=== PATIENT | female | born 1950 | race Hispanic/Latino ===

== ENCOUNTER 2018-04-29 13:09 | Emergency (ER) | payer MEDICARE ==
[~2018-04-29] VITALS: Ht 154.9 cm; Wt 74.8 kg
[2018-04-29] MEDS ORDERED: SODIUM CHLORIDE 0.9% 1000ML 1,000 ML IV STA (13:18)
[2018-04-29] MEDS ORDERED: MORPHINE SULFATE INJ 4 MG/ML INJ IV STA (13:18)
[2018-04-29] MEDS ORDERED: ONDANSETRON HCL INJ 2 MG/ML VIAL IV STA (13:18)
[2018-04-29] MEDS ORDERED: HYDROMORPHONE 1MG/1ML INJ IV STA (13:25)
[2018-04-29 13:36] LABS: BASOPHILS % 0.4 % (0.0-1.0); EOSINOPHILS % 0.2 % (0.0-6.0); HEMATOCRIT 32.4 % (34.2-44.1); HEMOGLOBIN 11.4 g/dL (12.0-16.0); LYMPHOCYTES # (AUTO) 1.4 (1.0-3.2); MEAN CORPUSCULAR HEMOGLOBIN 31.8 pg (28-32); MEAN CORPUSCULAR HGB CONC 35.2 g/dL (31-35); MEAN CORPUSCULAR VOLUME 90.3 fL (81-99); MONOCYTES # (AUTO) 0.4 (0.2-0.8); MONOCYTES % 9.3 % (4.4-11.3); NEUTROPHILS # (AUTO) 2.7 (2.1-6.9); NEUTROPHILS % 58.9 % (38.7-80.0); PLATELET COUNT 243 x10e3/uL (140-360); RED BLOOD COUNT 3.59 x10e6/uL (3.6-5.1); RED CELL DISTRIBUTION WIDTH 13.1 % (11.7-14.4)
[2018-04-29] MEDS ORDERED: HYDROMORPHONE 2MG/ML 2 MG/ML ML IV ONE ×2 (13:45→17:15)
[2018-04-29 13:55] LABS: CLARITY,URINE CLEAR (CLEAR); COLOR,URINE YELLOW (YELLOW)
[2018-04-29 13:56] LABS: KETONES,URINE NEGATIVE (NEGATIVE); LEUKOCYTE ESTERASE ,URINE NEGATIVE (NEGATIVE); NITRITE,URINE NEGATIVE (NEGATIVE); PROTEIN,URINE DIPSTICK NEGATIVE (NEGATIVE)
[2018-04-29 13:57] LABS: BILIRUBIN,URINE NEGATIVE (NEGATIVE); URINE UROBILINOGEN 0.2 mg/dL (0.2 - 1)
[2018-04-29 13:59] LABS: ALANINE AMINOTRANSFERASE 18 IU/L (0-55); ALBUMIN 4.1 g/dL (3.5-5.0); ALBUMIN/GLOBULIN RATIO 1.3 (0.8-2.0); ALKALINE PHOSPHATASE 34 IU/L (40-150); AMYLASE 59 U/L (25-125); ANION GAP 15.2 mmol/L (8-16); BLOOD UREA NITROGEN 7 mg/dL (7-26); BUN/CREATININE RATIO 10 (6-25); CALCIUM 8.7 mg/dL (8.4-10.2); CARBON DIOXIDE 19 mmol/L (22-29); CHLORIDE 99 mmol/L (98-107); CREATINE KINASE 148 IU/L (29-168); CREATININE, SERUM 0.68 mg/dL (0.57-1.11); EST GLOMERULAR FILTRATION RATE > 60 ML/MIN (60-); GLUCOSE 96 mg/dL (74-118); LIPASE 28 U/L (8-78); POTASSIUM 4.2 mmol/L (3.5-5.1); SODIUM 129 mmol/L (136-145)
[2018-04-29] MEDS ORDERED: ACETAMINOPHEN 325 MG TAB PO ONE (14:30)
--- NOTE | 2018-04-29 16:11 | Diagnostic Imaging Report ---
EXAMINATION: CT of the abdomen and pelvis with contrast. TECHNIQUE: Helical CT images of the abdomen and pelvis were performed from the lung bases to the lesser trochanters after the intravenous administration of 150 cc of Isovue 300 and the oral administration of none. Coronal and sagittal reformatted images were obtained. Dose modulation, iterative reconstruction, and/or weight based adjustment of the mA/kV was utilized to reduce the radiation dose to as low as reasonably achievable. COMPARISON: None. CLINICAL HISTORY:Abdominal pain DISCUSSION: ABDOMEN/PELVIS: LOWER THORAX:Unremarkable. HEPATOBILIARY: No focal hepatic lesions. No intra-or extrahepatic biliary ductal dilation. The gallbladder is normal. SPLEEN: No splenomegaly. PANCREAS: No focal masses or ductal dilatation. ADRENALS: No adrenal nodules. KIDNEYS/URETERS: 1 cm cyst exophytic left kidney. No obstruction. No solid masses. PELVIC ORGANS/BLADDER: The bladder is normal. PERITONEUM/RETROPERITONEUM: No free air or fluid. LYMPH NODES: No intra-abdominal, retroperitoneal, pelvic or inguinal lymphadenopathy. VESSELS: Mild vascular calcifications. GI TRACT: No distention or wall thickening. The appendix is normal. BONES AND SOFT TISSUE: Sclerosis at the right sacroiliac joint. Lower lumbar facet arthropathy. Thoracic spine skeletal hyperostosis. No soft tissue abnormalities. IMPRESSION: No acute CT finding. Signed by: Dr. Austin Finnegan M.D. on 04/29/2018 4:08 PM
[2018-04-29 18:13] VITALS: BP 115/67
[2018-04-29] MEDS ORDERED: SODIUM CHLORIDE 0.9% 50ML 50 ML ONE (19:02)
[2018-04-29] MEDS ORDERED: IOPAMIDOL 370 MG/ML 200 ML INFUS..BTL INJ ONE (19:03)
== END 2018-04-29 18:05 | disposition home or self-care (01) ==
LOC: ER 13:09
DX: R10.12 Left upper quadrant pain (principal); I10 Essential (primary) hypertension; E11.9 Type 2 diabetes mellitus without complications; M79.7 Fibromyalgia; G89.29 Other chronic pain
CPT/HCPCS: 36415; 74177; 80053; 81001; 82150; 82550; 82553; 83690; 84484; 85025; 87086; 99284; J1170; J2405; J7030; Q9967

== ENCOUNTER 2018-05-01 10:38 | Emergency (ER) | payer SELFPAY ==
[~2018-05-01] VITALS: Ht 154.9 cm; Wt 74.8 kg
--- OUTSIDE RECORDS SUMMARY | 2018-05-03 14:00 | XMS REPORT | Summary of Care ---
Author Organization Unknown Address Unknown Phone Unavailable Encounter CHULA Latif(NEO) [id number] Date(s): 11/22/14 - 11/22/14 [facility] [address] [place] [address]- Discharge Disposition: Home Physician Attending: Fabián Og MD Vital Signs Most recent to 1 oldest [Reference Range]: Height 165.1 cm (11/22/14 4:08 PM) Weight 71.364 kg (11/22/14 4:08 PM) Body Mass Index 26.18 m2 (11/22/14 4:08 PM) Problem List No data available for this section Allergies, Adverse Reactions, Alerts Substance Reaction Severity Status codeine Active ibuprofen Active NKDA Active Medications No data available for this section Results ELECTROLYTES Most recent to 1 oldest [Reference Range]: Sodium Lvl [135-145 138 mEq/L mEq/L] (11/22/14 4:10 PM) Potassium Lvl 4.7 mEq/L [3.5-5.1 mEq/L] (11/22/14 4:10 PM) Chloride Lvl [95-109 104 mEq/L mEq/L] (11/22/14 4:10 PM) CO2 [24-32 mEq/L] 29 mEq/L (11/22/14 4:10 PM) AGAP [10.0-20.0 9.7 mEq/L mEq/L] *LOW* (11/22/14 4:10 PM) CHEM PANEL Most recent to 1 oldest [Reference Range]: Creatinine Lvl 0.7 mg/dL [0.5-1.4 mg/dL] (11/22/14 4:10 PM) eGFR 91 mL/min/1.73m2 1 *NA* (11/22/14 4:10 PM) BUN [7-22 mg/dL] 13 mg/dL (11/22/14 4:10 PM) Glucose Lvl [70-99 103 mg/dL 2 mg/dL] *HI* (11/22/14 4:10 PM) Calcium Lvl 9.3 mg/dL [8.5-10.5 mg/dL] (11/22/14 4:10 PM) 1Result Comment: The eGFR is calculated using the CKD-EPI formula. In most young, healthy individuals the eGFR will be >90 mL/min/1.73m2. The eGFR declines with age. An eGFR of 60-89 may be normal in some populations, particularly the elderly, for whom the CKD-EPI formula has not been extensively validated. Use of the eGFR is not recommended in the following populations: Individuals with unstable creatinine concentrations, including patients and those with serious co-morbid conditions. Patients with extremes in muscle mass or diet. The data above are obtained from the National Kidney Disease Education Program ( NKDEP) which additionally recommends that when the eGFR is used in patients with extremes of body mass index for purposes of drug dosing, the eGFR should be mul tiplied by the estimated BMI. 2Interpretive Data: Adult reference range values reflect the clinical guidelines of the [place] [employer]. HEMATOLOGY Most recent to 1 oldest [Reference Range]: WBC [3.7-10.4 K/CMM] 5.7 K/CMM (11/22/14 4:10 PM) RBC [4.20-5.40 3.72 M/CMM M/CMM] *LOW* (11/22/14 4:10 PM) Hgb [12.0-16.0 g/dL] 11.9 g/dL *LOW* (11/22/14 4:10 PM) Hct [36.0-48.0 %] 33.6 % *LOW* (11/22/14 4:10 PM) MCV [80.0-98.0 fL] 90.2 fL (11/22/14 4:10 PM) MCH [27.0-31.0 pg] 32.0 pg *HI* (11/22/14 4:10 PM) MCHC [32.0-36.0 35.5 g/dL g/dL] (11/22/14 4:10 PM) RDW [11.5-14.5 %] 12.8 % (11/22/14 4:10 PM) Platelet [133-450 221 K/CMM K/CMM] (11/22/14 4:10 PM) MPV [7.4-10.4 fL] 8.6 fL (11/22/14 4:10 PM) Segs [45.0-75.0 %] 50.6 % (11/22/14 4:10 PM) Lymphocytes 37.8 % [20.0-40.0 %] (11/22/14 4:10 PM) Monocytes [2.0-12.0 8.4 % %] (11/22/14 4:10 PM) Eosinophils [0.0-4.0 2.7 % %] (11/22/14 4:10 PM) Basophils [0.0-1.0 0.5 % %] (11/22/14 4:10 PM) Segs-Bands # 2.9 K/CMM [1.5-8.1 K/CMM] (11/22/14 4:10 PM) Lymphocytes # 2.2 K/CMM [1.0-5.5 K/CMM] (11/22/14 4:10 PM) Monocytes # [0.0-0.8 0.5 K/CMM K/CMM] (11/22/14 4:10 PM) Eosinophils # 0.2 K/CMM [0.0-0.5 K/CMM] (11/22/14 4:10 PM) Basophils # [0.0-0.2 0.0 K/CMM K/CMM] (11/22/14 4:10 PM) Immunizations No data available for this section Procedures Procedure Date Related Diagnosis Body Site Breast operation1 Meniscal repair 1left Social History No data available for this section Assessment and Plan No data available for this section
--- OUTSIDE RECORDS SUMMARY | 2018-05-03 14:00 | XMS REPORT | Summary of Care ---
Author Author [facility] Organization [facility] Address Unknown Phone Unavailable Encounter CHULA Latif(NEO) [id number] Date(s): 09/28/15 - 09/28/15 [facility] [address] [place] [address]- [phone] Discharge Diagnosis: Acute tension-type headache Discharge Diagnosis: Headache, migraine Discharge Disposition: Home Attending Physician: Liam Rea MD Vital Signs Most recent to 1 2 oldest [Reference Range]: Height 154.94 cm (09/28/15 5:48 PM) Temperature Oral 97.9 DegF 97.9 DegF [96.4-99.1 DegF] (09/28/15 8:35 PM) (09/28/15 5:48 PM) Blood Pressure 143/76 mmHg 132/73 mmHg [90-140/60-90 mmHg] *HI* (09/28/15 5:48 PM) (09/28/15 8:35 PM) Respiratory Rate 18 BRMIN 17 BRMIN [14-20 BRMIN] (09/28/15 8:35 PM) (09/28/15 5:48 PM) Peripheral Pulse 62 bpm 68 bpm Rate [60-100 bpm] (09/28/15 8:35 PM) (09/28/15 5:48 PM) Weight 71.818 kg (09/28/15 5:48 PM) Body Mass Index 29.92 m2 (09/28/15 5:48 PM) Problem List Condition Effective Dates Status Health Status Informant Diabetes(Confirmed) Active Hyperlipidemia(Confi Active rmed) Hypertension(Confirm Active ed) Allergies, Adverse Reactions, Alerts Substance Reaction Severity Status codeine Active ibuprofen Active traMADol Active Medications aspirin 324 mg, Route: PO, ONCE, Dosing Weight 71.818, kg, Priority: STAT, Start date: 0 09/28/15 18:28:00, Stop date: 09/28/15 18:28:00 Start Date: 09/28/15 Stop Date: 09/28/15 Status: Completed Benadryl 25 mg, Route: IVP, ONCE, Dosing Weight 71.818, kg, Priority: STAT, Start date: 0 09/28/15 18:28:00, Stop date: 09/28/15 18:28:00 Start Date: 09/28/15 Stop Date: 09/28/15 Status: Completed Fioricet 300 mg-50 mg-40 mg oral capsule 1 cap, PO, Q4H, PRN Pain, Do not exceed 6 capsules in 24 hours, # 30 caplet, 0 R efill(s) Start Date: 09/28/15 Stop Date: 10/29/15 Status: Ordered Fiorinal oral capsule 1 cap, Route: PO, Dosing Weight 71.818, kg, ONCE, STAT, Start date: 09/28/15 20: 28:00, Stop date: 09/28/15 20:28:00 Start Date: 09/28/15 Stop Date: 09/28/15 Status: Completed morphine Sulfate 4 mg, Route: IVP, ONCE, Dosing Weight 71.818, kg, Priority: STAT, Start date: 18:28:00, Stop date: 09/28/15 18:28:00 Start Date: 09/28/15 Stop Date: 09/28/15 Status: Completed ondansetron 4 mg, Route: IVP, ONCE, Dosing Weight 71.818, kg, Priority: STAT, Start date: 18:28:00, Stop date: 09/28/15 18:28:00 Start Date: 09/28/15 Stop Date: 09/28/15 Status: Completed ondansetron 8 mg oral tablet 8 mg=1 tab, PO, TID, X 4 day, # 30 tab, 0 Refill(s) Start Date: 09/28/15 Stop Date: 10/02/15 Status: Ordered Reglan 10 mg, Route: IVP, Drug form: INJ, ONCE, Dosing Weight 71.818, kg, Priority: STA T, Start date: 09/28/15 18:28:00, Stop date: 09/28/15 18:28:00 Start Date: 09/28/15 Stop Date: 09/28/15 Status: Completed Saline Flush 0.9% 10 mL, Route: IVP, Drug Form: INJ, Dosing Weight 71.818, kg, PRN, PRN Line Flush , Start date: 09/28/15 18:28:00, Duration: 30 day, Stop date: 10/28/15 19:27:00 Notes: (Same as: BD Posiflush) Start Date: 09/28/15 Stop Date: 09/28/15 Status: Discontinued Results ELECTROLYTES Most recent to 1 oldest [Reference Range]: Sodium Lvl [135-145 127 mEq/L mEq/L] *LOW* (09/28/15 7:08 PM) Potassium Lvl 3.8 mEq/L [3.5-5.1 mEq/L] (09/28/15 7:08 PM) Chloride Lvl [95-109 95 mEq/L mEq/L] (09/28/15 7:08 PM) CO2 [24-32 mEq/L] 25 mEq/L (09/28/15 7:08 PM) AGAP [10.0-20.0 10.8 mEq/L mEq/L] (09/28/15 7:08 PM) CHEM PANEL Most recent to 1 oldest [Reference Range]: Creatinine Lvl 0.66 mg/dL [0.50-1.40 mg/dL] (09/28/15 7:08 PM) eGFR 92 mL/min/1.73m2 1 *NA* (09/28/15 7:08 PM) BUN [7-22 mg/dL] 10 mg/dL (09/28/15 7:08 PM) B/C Ratio [6-25] 15 (09/28/15 7:08 PM) Glucose Lvl [70-99 99 mg/dL mg/dL] (09/28/15 7:08 PM) Total Protein 8.3 g/dL [6.4-8.4 g/dL] (09/28/15 7:08 PM) Albumin Lvl [3.5-5.0 4.5 g/dL g/dL] (09/28/15 7:08 PM) Globulin [2.0-4.0 3.8 g/dL g/dL] (09/28/15 7:08 PM) A/G Ratio [0.7-1.6] 1.2 (09/28/15 7:08 PM) Calcium Lvl 9.0 mg/dL [8.5-10.5 mg/dL] (09/28/15 7:08 PM) ALT [0-65 unit/L] 23 unit/L (09/28/15 7:08 PM) AST [0-37 unit/L] 14 unit/L (09/28/15 7:08 PM) Alk Phos [39-136 39 unit/L unit/L] (09/28/15 7:08 PM) Bili Total [0.2-1.3 0.2 mg/dL mg/dL] (09/28/15 7:08 PM) 1Result Comment: The eGFR is calculated [...] be mul tiplied by the estimated BMI. CARDIAC ENZYMES Most recent to 1 oldest [Reference Range]: Total CK [12-191 169 unit/L unit/L] (09/28/15 7:08 PM) CK MB [0.5-3.6 1.2 ng/mL ng/mL] (09/28/15 7:08 PM) CK MB Index 0.7 [0.0-2.5] (09/28/15 7:08 PM) Troponin-I <0.02 ng/mL [0.00-0.40 ng/mL] (09/28/15 7:08 PM) BNP [<=100 pg/mL] 109 pg/mL *HI* (09/28/15 7:08 PM) HEMATOLOGY Most recent to 1 oldest [Reference Range]: WBC [3.7-10.4 K/CMM] 5.1 K/CMM (09/28/15 7:08 PM) RBC [4.20-5.40 3.87 M/CMM M/CMM] *LOW* (09/28/15 7:08 PM) Hgb [12.0-16.0 g/dL] 11.7 g/dL *LOW* (09/28/15:08 PM) Hct [36.0-48.0 %] 34.8 % *LOW* (09/28/15:08 PM) MCV [80.0-98.0 fL] 89.9 fL (09/28/15 7:08 PM) MCH [27.0-31.0 pg] 30.1 pg (09/28/15:08 PM) MCHC [32.0-36.0 33.5 g/dL g/dL] (09/28/15 7:08 PM) RDW [11.5-14.5 %] 12.8 % (09/28/15 7:08 PM) Platelet [133-450 207 K/CMM K/CMM] (09/28/15 7:08 PM) MPV [7.4-10.4 fL] 8.8 fL (09/28/15 7:08 PM) Segs [45.0-75.0 %] 59.0 % (09/28/15 7:08 PM) Lymphocytes 32.1 % [20.0-40.0 %] (09/28/15 7:08 PM) Monocytes [2.0-12.0 7.1 % %] (09/28/15 7:08 PM) Eosinophils [0.0-4.0 1.0 % %] (09/28/15 7:08 PM) Basophils [0.0-1.0 0.8 % %] (09/28/15 7:08 PM) Segs-Bands # 3.0 K/CMM [1.5-8.1 K/CMM] (09/28/15 7:08 PM) Lymphocytes # 1.6 K/CMM [1.0-5.5 K/CMM] (3/12/16 7:08 PM) Monocytes # [0.0-0.8 0.4 K/CMM K/CMM] (09/28/15 7:08 PM) Eosinophils # 0.1 K/CMM [0.0-0.5 K/CMM] (09/28/15 7:08 PM) D-Dimer 0.29 ug/mL FEU *NA* (09/28/15 7:08 PM) Immunizations No data available for this section Procedures Procedure Date Related Diagnosis Body Site Breast operation1 Meniscal repair 1left Social History Social History Type Response Smoking Status Never smoker; Exposure to Tobacco Smoke None; Cigarette Smoking Last 365 Days No; Reg Smoking Cessation Counseling No Assessment and Plan No data available for this section
--- OUTSIDE RECORDS SUMMARY | 2018-05-03 14:00 | XMS REPORT | Summary of Care ---
Author Author [facility] Organization [facility] Address Unknown Phone Unavailable Encounter CHULA Latif(NEO) [id number] Date(s): 05/02/16 - 05/02/16 [facility] [address] [place] [address] [phone] Discharge Diagnosis: Acute headache Discharge Diagnosis: Hypertension Discharge Diagnosis: Chest pain Discharge Diagnosis: Chronic hyponatremia Discharge Disposition: Home or Self Care Attending Physician: Daniel Escamilla MD Vital Signs 1 2 3 Most recent to oldest [Reference Range]: 98.0 DegF (05/02/16 5:17 AM) 98.4 DegF (05/02/16 12:37 AM) Temperature Oral [96.4-99.1 DegF] 160/72 mmHg *HI* (05/02/16 5:17 AM) 187/98 mmHg *HI* (05/02/16 12:37 AM) Blood Pressure [90-140/60-90 mmHg] 165 mmHg *HI* (05/02/16 2:40 AM) Systolic Blood Pressure [90-140 mmHg] 77 mmHg (05/02/16 2:40 AM) Diastolic Blood Pressure [60-90 mmHg] 18 BRMIN (05/02/16:17 AM) 20 BRMIN (05/02/16 2:40 AM) 18 BRMIN (05/02/16 12:37 AM) Respiratory Rate [14-20 BRMIN] 72 bpm (05/02/16 5:17 AM) 76 bpm (05/02/16 2:40 AM) 72 bpm (05/02/16 12:37 AM) Peripheral Pulse Rate [60-100 bpm] 72.727 kg (05/02/16 12:37 AM) Weight Problem List Condition Effective Dates Status Health Status Informant Diabetes(Confirmed) Active Hyperlipidemia(Confi Active rmed) Hypertension(Confirm Active ed) Allergies, Adverse Reactions, Alerts Substance Reaction Severity Status amLODIPine Active citalopram Active codeine Active hydrochlorothiazide Active ibuprofen Active lisinopril1 Active pravastatin2 Active traMADol Active 1HIVES 2HIVES Medications Benadryl 25 mg, 0.5 mL, Route: IVP, Drug form: INJ, ONCE, Dosing Weight 72.727, kg, Prior ity: STAT, Start date: 05/02/16 4:50:00 CDT, Stop date: 05/02/16 4:50:00 CDT Notes: (Same as: Benadryl) Start Date: 05/02/16 Stop Date: 05/02/16 Status: Completed Pepcid 40 mg, 4 mL, Route: IV, Drug form: INJ, ONCE, Dosing Weight 72.727, kg, Start da te: 05/02/16 4:50:00 CDT, Stop date: 05/02/16 4:50:00 CDT Notes: (Same as: Pepcid)Can be dilute in 5-10cc NS IVP: Slow IV push over at le ast 2 minutes. Start Date: 05/02/16 Stop Date: 05/02/16 Status: Completed Tylenol 650 mg, 2 tab, Route: PO, Drug form: TAB, ONCE, Dosing Weight 72.727, kg, Priori ty: STAT, Start date: 05/02/16 1:42:00 CDT, Stop date: 05/02/16 1:42:00 CDT Notes: Do not exceed 4 gm/day. (Same as: Tylenol) Start Date: 05/02/16 Stop Date: 05/02/16 Status: Completed Results ELECTROLYTES Most recent to 1 oldest [Reference Range]: Sodium Lvl [135-145 130 mEq/L mEq/L] *LOW* (05/02/16 2:37 AM) Potassium Lvl 3.8 mEq/L [3.5-5.1 mEq/L] (05/02/16 2:37 AM) Chloride Lvl [95-109 102 mEq/L mEq/L] (05/02/16 2:37 AM) CO2 [24-32 mEq/L] 17 mEq/L *LOW* (05/02/16 2:37 AM) AGAP [10.0-20.0 14.8 mEq/L mEq/L] (05/02/16 2:37 AM) CHEM PANEL Most recent to 1 oldest [Reference Range]: Creatinine Lvl 0.69 mg/dL [0.50-1.40 mg/dL] (05/02/16 2:37 AM) eGFR 90 mL/min/1.73m2 1 *NA* (05/02/16 2:37 AM) BUN [7-22 mg/dL] 15 mg/dL (05/02/16 2:37 AM) Glucose Lvl [70-99 111 mg/dL mg/dL] *HI* (05/02/16 2:37 AM) Calcium Lvl 8.4 mg/dL [8.5-10.5 mg/dL] *LOW* (05/02/16 2:37 AM) 1Result Comment: The eGFR is calculated using [...] Most recent to 1 oldest [Reference Range]: Troponin-I <0.02 ng/mL [0.00-0.40 ng/mL] (05/02/16 2:37 AM) HEMATOLOGY Most recent to 1 oldest [Reference Range]: WBC [3.7-10.4 K/CMM] 6.4 K/CMM (05/02/16 2:37 AM) RBC [4.20-5.40 3.63 M/CMM M/CMM] *LOW* (05/02/16 2:37 AM) Hgb [12.0-16.0 g/dL] 11.0 g/dL *LOW* (05/02/16 2:37 AM) Hct [36.0-48.0 %] 32.8 % *LOW* (05/02/16 2:37 AM) MCV [80.0-98.0 fL] 90.2 fL (05/02/16 2:37 AM) MCH [27.0-31.0 pg] 30.4 pg (05/02/16 2:37 AM) MCHC [32.0-36.0 33.7 g/dL g/dL] (05/02/16 2:37 AM) RDW [11.5-14.5 %] 12.6 % (05/02/16 2:37 AM) Platelet [133-450 200 K/CMM K/CMM] (05/02/16 2:37 AM) MPV [7.4-10.4 fL] 8.2 fL (05/02/16 2:37 AM) Segs [45.0-75.0 %] 54.9 % (05/02/16 2:37 AM) Lymphocytes 36.1 % [20.0-40.0 %] (05/02/16 2:37 AM) Monocytes [2.0-12.0 7.6 % %] (05/02/16 2:37 AM) Eosinophils [0.0-4.0 0.7 % %] (05/02/16 2:37 AM) Basophils [0.0-1.0 0.7 % %] (05/02/16 2:37 AM) Segs-Bands # 3.5 K/CMM [1.5-8.1 K/CMM] (05/02/16 2:37 AM) Lymphocytes # 2.3 K/CMM [1.0-5.5 K/CMM] (05/02/16 2:37 AM) Monocytes # [0.0-0.8 0.5 K/CMM K/CMM] (05/02/16 2:37 AM) Immunizations No data available for this section Procedures Procedure Date Related Diagnosis Body Site Breast operation1 Meniscal repair 1left Social History Social History Type Response Smoking Status Never smoker; Previous treatment: None; Ready to change: No; Concerns about tobacco use in household: No; Exposure to Tobacco Smoke None; Cigarette Smoking Last 365 Days No; Reg Smoking Cessation Counseling No Assessment and Plan No data available for this section
--- OUTSIDE RECORDS SUMMARY | 2018-05-03 14:00 | XMS REPORT | Summary of Care ---
Author Author [facility] Organization [facility] Address Unknown Phone Unavailable Encounter CHULA Latif(NEO) [id number] Date(s): 09/16/15 - 09/16/15 [facility] [address] [place] [address]- Discharge Diagnosis: Headache Discharge Disposition: Home Attending Physician: Kika Mcguire MD Vital Signs Most recent to 1 2 oldest [Reference Range]: Height 154.94 cm (09/16/15 4:52 PM) Temperature Oral 98.3 DegF 98.8 DegF [96.4-99.1 DegF] (09/16/15 8:48 PM) (09/16/15 4:52 PM) Blood Pressure 116/58 mmHg 155/80 mmHg [90-140/60-90 mmHg] (09/16/15 8:48 PM) *HI* (09/16/15 4:52 PM) Respiratory Rate 17 BRMIN 18 BRMIN [14-20 BRMIN] (09/16/15 8:48 PM) (09/16/15 4:52 PM) Peripheral Pulse 61 bpm 71 bpm Rate [60-100 bpm] (09/16/15 8:48 PM) (09/16/15 4:52 PM) Weight 70.455 kg (09/16/15 4:52 PM) Body Mass Index 29.35 m2 (09/16/15 4:52 PM) Problem List Condition Effective Dates Status Health Status Informant Diabetes(Confirmed) Active Hyperlipidemia(Confi Active rmed) Hypertension(Confirm Active ed) Allergies, Adverse Reactions, Alerts Substance Reaction Severity Status codeine Active ibuprofen Active NKDA Active Medications Ativan 1 mg, 1 tab, Route: PO, Drug form: TAB, ONCE, Dosing Weight 70.455, kg, Priority : STAT, Start date: 09/16/15 18:21:00, Stop date: 09/16/15 18:21:00 Notes: (Same as: Ativan) Start Date: 09/16/15 Stop Date: 09/16/15 Status: Completed Benadryl 25 mg, 0.5 mL, Route: IVP, Drug form: INJ, ONCE, Dosing Weight 70.455, kg, Prior ity: STAT, Start date: 09/16/15 18:22:00, Stop date: 09/16/15 18:22:00 Notes: (Same as: Benadryl) Start Date: 09/16/15 Stop Date: 09/16/15 Status: Completed Fioricet 300 mg-50 mg-40 mg oral capsule 1 cap, PO, Q4H, PRN PRN Headache, Do not exceed 6 capsules in 24 hours, X 10 day , # 60 cap, 0 Refill(s) Start Date: 09/16/15 Stop Date: 09/26/15 Status: Ordered Reglan 10 mg, 2 mL, Route: IVP, Drug form: INJ, ONCE, Dosing Weight 70.455, kg, Priorit y: STAT, Start date: 09/16/15 18:22:00, Stop date: 09/16/15 18:22:00 Notes: (Same as: Reglan) Start Date: 09/16/15 Stop Date: 09/16/15 Status: Completed Sodium Chloride 0.9% (Bolus) IV 1,000 mL, 1000 ml/hr, Infuse Over: 1 hr, Route: IV, 1,000, Drug form: INJ, ONCE, Priority: STAT, Dosing Weight 70.455 kg, Start date: 09/16/15 18:21:00, Houstontio n: 1 doses or times, Stop date: 09/16/15 18:21:00 Start Date: 09/16/15 Stop Date: 09/16/15 Status: Completed Results ELECTROLYTES Most recent to 1 oldest [Reference Range]: Sodium Lvl [135-145 136 mEq/L mEq/L] (09/16/15 6:44 PM) Potassium Lvl 3.9 mEq/L [3.5-5.1 mEq/L] (09/16/15 6:44 PM) Chloride Lvl [95-109 102 mEq/L mEq/L] (09/16/15 6:44 PM) CO2 [24-32 mEq/L] 27 mEq/L (09/16/15 6:44 PM) AGAP [10.0-20.0 10.9 mEq/L mEq/L] (09/16/15 6:44 PM) CHEM PANEL Most recent to 1 oldest [Reference Range]: Creatinine Lvl 0.73 mg/dL [0.50-1.40 mg/dL] (09/16/15 6:44 PM) eGFR 85 mL/min/1.73m2 1 *NA* (09/16/15 6:44 PM) BUN [7-22 mg/dL] 9 mg/dL (09/16/15 6:44 PM) B/C Ratio [6-25] 12 (09/16/15 6:44 PM) Glucose Lvl [70-99 150 mg/dL mg/dL] *HI* (09/16/15 6:44 PM) Total Protein 7.4 g/dL [6.4-8.4 g/dL] (09/16/15 6:44 PM) Albumin Lvl [3.5-5.0 3.9 g/dL g/dL] (09/16/15 6:44 PM) Globulin [2.0-4.0 3.5 g/dL g/dL] (09/16/15 6:44 PM) A/G Ratio [0.7-1.6] 1.1 (09/16/15 6:44 PM) Calcium Lvl 8.9 mg/dL [8.5-10.5 mg/dL] (09/16/15 6:44 PM) ALT [0-65 unit/L] 21 unit/L (09/16/15 6:44 PM) AST [0-37 unit/L] 12 unit/L (09/16/15 6:44 PM) Alk Phos [39-136 35 unit/L unit/L] *LOW* (09/16/15 6:44 PM) Bili Total [0.2-1.3 0.3 mg/dL mg/dL] (09/16/15 6:44 PM) 1Result Comment: The eGFR is calculated [...] be mul tiplied by the estimated BMI. URINE AND STOOL Most recent to 1 oldest [Reference Range]: UA Turbidity [Clear] Clear (09/16/15 6:48 PM) UA Color Ltyellow *NA* (09/16/15 6:48 PM) UA pH [5.0-8.0] 7.0 (09/16/15 6:48 PM) UA Spec Grav 1.006 [<=1.030] (09/16/15 6:48 PM) UA Glucose [Negative Negative mg/dL mg/dL] *NA* (09/16/15 6:48 PM) UA Blood [Negative] Negative (09/16/15 6:48 PM) UA Ketones [Negative Negative mg/dL mg/dL] *NA* (09/16/15 6:48 PM) UA Protein [Negative Negative mg/dL mg/dL] (09/16/15 6:48 PM) UA Urobilinogen <=1.0 mg/dL [0.1-1.0 mg/dL] *NA* (09/16/15 6:48 PM) UA Bili [Negative] Negative *NA* (09/16/15 6:48 PM) UA Leuk Est Negative [Negative] (09/16/15 6:48 PM) UA Nitrite Negative [Negative] (09/16/15 6:48 PM) UA WBC [0-5 /HPF] <1 /HPF (09/16/15 6:48 PM) UA RBC [0-2 /HPF] 2 /HPF (09/16/15 6:48 PM) UA Sq Epi [Few /LPF] Occasional /LPF *NA* (09/16/15 6:48 PM) HEMATOLOGY Most recent to 1 oldest [Reference Range]: WBC [3.7-10.4 K/CMM] 5.5 K/CMM (09/16/15 6:44 PM) RBC [4.20-5.40 3.59 M/CMM M/CMM] *LOW* (09/16/15 6:44 PM) Hgb [12.0-16.0 g/dL] 10.7 g/dL *LOW* (09/16/15 6:44 PM) Hct [36.0-48.0 %] 32.5 % *LOW* (09/16/15 6:44 PM) MCV [80.0-98.0 fL] 90.4 fL (09/16/15 6:44 PM) MCH [27.0-31.0 pg] 29.9 pg (09/16/15 6:44 PM) MCHC [32.0-36.0 33.1 g/dL g/dL] (09/16/15 6:44 PM) RDW [11.5-14.5 %] 13.0 % (09/16/15 6:44 PM) Platelet [133-450 206 K/CMM K/CMM] (09/16/15 6:44 PM) MPV [7.4-10.4 fL] 8.1 fL (09/16/15 6:44 PM) Segs [45.0-75.0 %] 58.7 % (09/16/15 6:44 PM) Lymphocytes 31.2 % [20.0-40.0 %] (09/16/15 6:44 PM) Monocytes [2.0-12.0 7.8 % %] (09/16/15 6:44 PM) Eosinophils [0.0-4.0 1.5 % %] (09/16/15 6:44 PM) Basophils [0.0-1.0 0.8 % %] (09/16/15 6:44 PM) Segs-Bands # 3.2 K/CMM [1.5-8.1 K/CMM] (09/16/15 6:44 PM) Lymphocytes # 1.7 K/CMM [1.0-5.5 K/CMM] (09/16/15 6:44 PM) Monocytes # [0.0-0.8 0.4 K/CMM K/CMM] (09/16/15 6:44 PM) Eosinophils # 0.1 K/CMM [0.0-0.5 K/CMM] (09/16/15 6:44 PM) Immunizations No data available for this section Procedures Procedure Date Related Diagnosis Body Site Breast operation1 Meniscal repair 1left Social History Social History Type Response Smoking Status Never smoker; Exposure to Tobacco Smoke None; Cigarette Smoking Last 365 Days No; Reg Smoking Cessation Counseling No Assessment and Plan No data available for this section
--- OUTSIDE RECORDS SUMMARY | 2018-05-03 14:00 | XMS REPORT | Continuity of Care Document ---
Author Author Dona [facility] Interface Address Unknown Phone Unavailable Problems Problem Status Onset Date Classification Date Reported Comments Source SOB Active 04/06/2018 [facility] URINARY SYMPTOMS Active 04/02/2018 [facility] DIZZINESS Active 03/29/2018 [facility] HEADACHE Active 03/28/2018 [facility] WEAKNESS Active 03/27/2018 [facility] HYPONATREMIA Active 03/25/2018 [facility] DIFFICULTY BREATHING Active 03/25/2018 [facility] ACUTE HYPONATREMIA, GENERALIZED MUSCLE W Active 03/23/2018 [facility] BACK PAIN Active 03/23/2018 [facility] COUGH Active 03/19/2018 [facility] HYPERTENSION Active 03/18/2018 [facility] ELEVATED B/P Active 03/18/2018 [facility] R26.81 - UNSTEADINESS ON FEET Active 03/01/2018 [facility] Discharge Diagnosis: Headache 05/15/2016 05/18/2016 [facility] Discharge Diagnosis: Numbness and tingling in left arm 05/15/2016 05/18/2016 [facility] ALLERGIC REACTION Active 05/14/2016 [facility] Discharge Diagnosis: Hyperglycemia 05/08/2016 05/11/2016 [facility] Discharge Diagnosis: Hyponatremia 05/08/2016 05/11/2016 [facility] OTHER Active 05/07/2016 [facility] Discharge Diagnosis: Anxiety reaction 05/04/2016 05/07/2016 [facility] Discharge Diagnosis: Uncontrolled hypertension 05/04/2016 05/07/2016 [facility] HIGH BP Active 05/03/2016 [facility] Discharge Diagnosis: Acute headache 05/02/2016 05/05/2016 [facility] Discharge Diagnosis: Hypertension 05/02/2016 05/05/2016 [facility] Discharge Diagnosis: Chest pain 05/02/2016 05/05/2016 [facility] Discharge Diagnosis: Chronic hyponatremia 05/02/2016 05/05/2016 [facility] HIGH BLOOD PRESSURE Active 05/02/2016 [facility] CHEST PAIN Active 04/28/2016 [facility] CHEST PAIN, HYPONATREMIA Active 04/28/2016 [facility] SHORTNESS OF BREATH Active 04/22/2016 [facility] Discharge Diagnosis: Acute tension-type headache 09/28/2015 10/01/2015 [facility] Discharge Diagnosis: Headache, migraine 09/28/2015 10/01/2015 [facility] 844.2 Active 11/22/2014 [facility] Encounter for screening mammogram for malignant neoplasm of breast 11/13/2017 [facility] [place] Diabetes Active Problem 01/28/2018 [facility], [facility] [place] Hyperlipidemia Active Problem 01/28/2018 [facility], [facility] [place] Hypertension Active Problem 01/28/2018 [facility], [facility] [place] Diabetes Active Problem 02/08/2018 [facility] Hyperlipidemia Active Problem 02/08/2018 [facility] Hypertension Active Problem 02/08/2018 [facility] Diabetes Active Problem 02/10/2018 [facility] Body mass index 31.0-31.9, adult(<span [id number]">Confirmed</span>) Active Problem 02/10/2018 [facility] [place] Hyperlipidemia Active Problem 02/10/2018 [facility] Hypertension Active Problem 02/10/2018 [facility] Left knee pain Active Problem 02/10/2018 [facility] Osteoporosis Active Problem 02/10/2018 [facility] Medial meniscus tear Active Problem 02/10/2018 [facility] Unsteady gait Active Problem 02/10/2018 [facility], [facility] NECK PAIN Active [facility] CHEST PAIN, UNSPECIFIED Active [facility] HYPO-OSMOLALITY AND HYPONATREMIA Active [facility] MUSCLE WEAKNESS (GENERALIZED) Active [facility] Medications Medication Details Route Status Patient Instructions Ordering Provider Order Date Source Walker 1 ea, MISC, ONCALL, dispense 1 rollator walker, # 1 ea, 0 Refill(s) Active 02/08/2018 [facility] naproxen 500 mg oral tablet 500 mg=1 tab, PO, BID, X 14 day, # 28 tab, 0 Refill(s), Pharmacy: [id number] Active 02/05/2018 [facility] glimepiride 2 mg oral tablet 2 mg=1 tab, PO, Breakfast, # 90 tab, 1 Refill(s), Pharmacy: [facility] [id number] Active 01/25/2018 [facility] lisinopril 10 mg oral tablet 10 mg=1 tab, PO, BID, # 180 tab, 1 Refill(s), Pharmacy: [id number] Active 01/25/2018 [facility] tizanidine 2 mg oral tablet 2 mg=1 tab, PO, Bedtime, PRN for muscle spasms, # 30 tab, 1 Refill(s), Pharmacy: [id number] Active 01/25/2018 [facility] meloxicam 7.5 mg oral tablet 7.5 mg=1 tab, PO, Daily, # 30 tab, 1 Refill(s), Pharmacy: [id number] Active 01/25/2018 [facility] mometasone furoate 0.05 MG/ACTUAT Metered Dose Nasal [place] 2 spray, NASAL, Daily, # 1 btl, 0 Refill(s) Active 01/25/2018 [facility] lisinopril 10 mg oral tablet 10 mg=1 tab, PO, Daily, # 30 tab, 0 Refill(s) Inactive 01/25/2018 [facility] glimepiride 2 mg oral tablet 2 mg=1 tab, PO, Breakfast, # 30 tab, 0 Refill(s) Inactive 01/25/2018 [facility] Cetirizine 10 mg, Daily, 0 Refill(s) Active 01/25/2018 [facility] Acetaminophen 650 mg, 0 Refill(s) Active 01/25/2018 [facility] Aspirin 81 MG Enteric Coated Tablet 81 mg=1 tab, PO, Daily, # 90 tab, 3 Refill(s) Active 01/25/2018 [facility] Acetaminophen 325 MG Oral Tablet [Tylenol] 650 mg=2 tab, PO, Q6H, PRN Pain, X 3 day, # 24 tab, 0 Refill(s) Active 05/15/2016 [facility] Reglan 10 mg, Route: IVP, Drug form: INJ, ONCE, Dosing Weight 72.727, kg, Priority: STAT, Start date: 05/15/16 0:40:00 CDT, Stop date: 05/15/16 0:40:00 CDT Inactive 05/15/2016 [facility] Benadryl 25 mg, Route: IVP, ONCE, Dosing Weight 72.727, kg, Priority: STAT, Start date: 05/15/16 0:40:00 CDT, Stop date: 05/15/16 0:40:00 CDT Inactive 05/15/2016 [facility] Tylenol 975 mg, Route: PO, Drug form: TAB, ONCE, Dosing Weight 72.727, kg, Priority: STAT, Start date: 05/15/16 0:40:00 CDT, Stop date: 05/15/16 0:40:00 CDT Inactive 05/15/2016 [facility] Sodium Chloride 0.154 MEQ/ML Injectable Solution 1,000 mL, 2,000 ml/hr, Infuse Over: 30 minutes, Route: IV, ONCE, Priority: STAT, Dosing Weight 72.727 kg, Start date: 05/08/16 2:10:00 CDT, Duration: 1 doses or times, Stop date: 05/08/16 2:10:00 CDT Inactive 05/08/2016 [facility] Clonidine Hydrochloride 0.1 MG Oral Tablet 0.1 mg=1 tab, PO, Q8H, PRN Hypertension, Systolic BP > 160, # 90 tab, 3 Refill(s) Active 05/04/2016 [facility] Tylenol 650 mg, 2 tab, Route: PO, Drug form: TAB, ONCE, Dosing Weight 72.727, kg, Priority: STAT, Start date: 05/04/16 1:26:00 CDT, Stop date: 05/04/16 1:26:00 CDTNotes: Do not exceed 4 gm/day. (Same as: Ty lenol) Inactive 05/04/2016 [facility] Clonidine Hydrochloride 0.1 MG Oral Tablet 0.1 mg, 1 tab, Route: PO, Drug form: TAB, ONCE, Dosing Weight 72.727, kg, Priority: STAT, Start date: 05/04/16 1:02:00 CDT, Stop date: 05/04/16 1:02:00 CDTNotes: (Same As: Catapres) Inactive 05/04/2016 [facility] Ondansetron 4 mg, 2 mL, Route: IVP, Drug form: INJ, ONCE, Dosing Weight 72.727, kg, Priority: STAT, Start date: 05/04/16 1:02:00 CDT, Stop date: 05/04/16 1:02:00 CDTNotes: (Same as: Zofran) MEDICATION WASTE * Product Size: 4 mg Product Wasted: ___ mg Inactive 05/04/2016 [facility] Morphine 2 mg, Route: IVP, ONCE, Dosing Weight 72.727, kg, Priority: STAT, Start date: 05/04/16 1:02:00 CDT, Stop date: 05/04/16 1:02:00 CDT Inactive 05/04/2016 [facility] Aspirin 324 mg, 4 tab, Route: PO, Drug form: CHEWTAB, ONCE, Dosing Weight 72.727, kg, Priority: STAT, Start date: 05/04/16 1:02:00 CDT, Stop date: 05/04/16 1:02:00 CDTNotes: Take with food. Inactive 05/04/2016 [facility] Saline Flush 0.9% 10 mL, Route: IVP, Drug Form: INJ, Dosing Weight 72.727, kg, PRN, PRN Line Flush, Start date: 05/04/16 1:02:00 CDT, Duration: 30 day, Stop date: 06/03/16 0:01:00 CSTNotes: (Same as: BD Posiflush) Inactive 05/04/2016 [facility] Acetaminophen 650 mg, Route: PO, Drug form: TAB, ONCE, Dosing Weight 81.818, kg, Priority: STAT, Start date: 05/02/16 19:46:00 CDT, Stop date: 05/02/16 19:46:00 CDT Inactive 05/03/2016 [facility] Saline Flush 0.9% 10 mL, Route: IVP, Drug Form: INJ, Dosing Weight 72.727, kg, PRN, PRN Line Flush, Start date: 05/02/16 17:34:00 CDT, Duration: 30 day, Stop date: 06/01/16 16:33:00 CSTNotes: (Same as: BD Posiflush) Inactive 05/02/2016 [facility] Pepcid 40 mg, 4 mL, Route: IV, Drug form: INJ, ONCE, Dosing Weight 72.727, kg, Start date: 05/02/16 4:50:00 CDT, Stop date: 05/02/16 4:50:00 CDTNotes: (Same as: Pepcid) Can be dilute in 5-10cc NS IVP: Slow IV push over at least 2 minutes. Inactive 05/02/2016 [facility] Benadryl 25 mg, 0.5 mL, Route: IVP, Drug form: INJ, ONCE, Dosing Weight 72.727, kg, Priority: STAT, Start date: 05/02/16 4:50:00 CDT, Stop date: 05/02/16 4:50:00 CDTNotes: (Same as: Benadryl) Inactive 05/02/2016 [facility] Tylenol 650 mg, 2 tab, Route: PO, Drug form: TAB, ONCE, Dosing Weight 72.727, kg, Priority: STAT, Start date: 05/02/16 1:42:00 CDT, Stop date: 05/02/16 1:42:00 CDTNotes: Do not exceed 4 gm/day. (Same as: Ty lenol) Inactive 05/02/2016 [facility] Hydralazine Hydrochloride 25 MG Oral Tablet 25 mg=1 tab, PO, Q8H, # 90 tab, 5 Refill(s) Active 04/30/2016 [facility] Miralax 17 gm, 1 pkt, Route: PO, Drug form: PWDR, ONCE, Dosing Weight 75, kg, Start date: 04/30/16 12:28:00 CDT, Duration: 1 doses or times, Stop date: 04/30/16 12:28:00 CDTNotes: Dissolve in 8 oz of water or juice. (Same as: Miralax) Inactive 04/30/2016 [facility] 24 HR Nifedipine 30 MG Extended Release Tablet 30 mg, Route: PO, Drug form: ERTAB, Daily, Dosing Weight 75, kg, Start date: 04/30/16 9:00:00 CDT, Duration: 30 day, Stop date: 05/29/16 9:00:00 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 04/30/2016 [facility] Tylenol 650 mg, 2 tab, Route: PO, Drug form: TAB, Q4H, Dosing Weight 75, kg, PRN Pain Score 1-3, Start date: 04/29/16 20:11:00 CDT, Duration: 30 day, Stop date: 05/29/16 20:10:00 CSTNotes: Do not exceed 4 gm/day. (Same as: Tylenol) No Longer Active 04/30/2016 [facility] Hydralazine Hydrochloride 25 MG Oral Tablet 25 mg, 1 tab, Route: PO, Drug form: TAB, Q6H, Dosing Weight 75, kg, Start date: 04/29/16 18:00:00 CDT, Duration: 30 day, Stop date: 05/29/16 12:00:00 CSTNotes: (Same as: Apresoline) May interfere w/enteral feedings Take With Food. No Longer Active 04/29/2016 [facility] Lyrica 100 mg, 2 cap, Route: PO, Drug form: CAP, TID, Dosing Weight 75, kg, Start date: 04/29/16 9:00:00 CDT, Duration: 30 day, Stop date: 05/28/16 21:00:00 CSTNotes: Same as Lyrica No Longer Active 04/29/2016 [facility] Pravachol 20 mg, 1 tab, Route: PO, Drug form: TAB, Daily, Dosing Weight 75, kg, Start date: 04/29/16 9:00:00 CDT, Duration: 30 day, Stop date: 05/28/16 9:00:00 CSTNotes: (Same as: Pravachol) No Longer Active 04/29/2016 [facility] Glipizide 2.5 MG / Metformin hydrochloride 250 MG Oral Tablet 1 tab, Route: PO, Drug Form: TAB, Dosing Weight 75, kg, Daily, Start date: 04/29/16 9:00:00 CDT, Duration: 30 day, Stop date: 05/28/16 9:00:00 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 No Longer Active 04/29/2016 [facility] Glucophage 250 mg, 0.5 tab, Route: PO, Drug form: TAB, Daily, Start date: 04/29/16 9:00:00 CDT, Duration: 30 day, Stop date: 05/28/16 9:00:00 CSTNotes: (Same as: Glucophage) Take with meal No Longer Active 04/29/2016 [facility] Temazepam 30 mg, 2 cap, Route: PO, Drug form: CAP, Bedtime, Dosing Weight 75, kg, PRN Sleep, Start date: 04/29/16 0:10:00 CDT, Duration: 30 day, Stop date: 05/29/16 0:09:00 CSTNotes: (Same As: Restoril) No Longer Active 04/29/2016 [facility] sodium chloride 0.9% 1000 ml INJ 1,000 mL 1,000 mL, Rate: 75 ml/hr, Infuse over: 13.3 hr, Route: IV, Dosing Weight 75 kg, Total Volume: 1,000, Start date: 04/29/16 0:06:00 CDT, Duration: 30 day, Stop date: 05/29/16 0:05:00 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 04/29/2016 [facility] Saline Flush 0.9% 10 ml, Route: IVP, Drug Form: INJ, Dosing Weight 75, kg, Q12H, Start date: 04/28/16 21:00:00 CDT, Duration: 30 day, Stop date: 05/28/16 9:00:00 CSTNotes: (Same as: BD Posiflush) No Longer Active 04/29/2016 [facility] Saline Flush 0.9% 10 ml, Route: IVP, Drug Form: INJ, Dosing Weight 75, kg, PRN, PRN Line Flush, Start date: 04/28/16 13:12:00 CDT, Duration: 30 day, Stop date: 05/28/16 12:11:00 CSTNotes: (Same as: BD Posiflush) No Longer Active 04/28/2016 [facility] Nitroglycerin 0.4 mg, 1 tab, Route: SL, Drug form: TAB, Q5Min, Dosing Weight 75, kg, PRN Chest Pain, Start date: 04/28/16 13:12:00 CDT, Duration: 3 doses or times, Stop date: Limited # of timesNotes: (Same as:Nitr oquick, Nitrostat) "Do Not Crush" Sublingual tablet No Longer Active 04/28/2016 [facility] Morphine 2 mg, 1 mL, Route: IVP, Drug form: INJ, Q15Min, Dosing Weight 75, kg, PRN Chest Pain, Start date: 04/28/16 13:12:00 CDT, Duration: 2 doses or times, Stop date: Limited # of timesNotes: (Same as:MORPh ine Sulfate) No Longer Active 04/28/2016 [facility] Aspirin 325 mg, Route: PO, Drug form: ECTAB, ONCE, Dosing Weight 75, kg, Priority: STAT, Start date: 04/28/16 8:40:00 CDT, Stop date: 04/28/16 8:40:00 CDT Inactive 04/28/2016 [facility] Labetalol 10 mg, Route: IVP, Drug form: INJ, ONCE, Dosing Weight 75, kg, Priority: STAT, Start date: 04/28/16 8:39:00 CDT, Stop date: 04/28/16 8:39:00 CDT Inactive 04/28/2016 [facility] Nitroglycerin 0.4 mg, 1 tab, Route: SL, Drug form: TAB, Q5Min, Dosing Weight 75, kg, PRN Chest Pain, Start date: 04/28/16 8:38:00 CDT, Duration: 3 doses or times, Stop date: Limited # of timesNotes: (Same as:Nitro quick, Nitrostat) "Do Not Crush" Sublingual tablet Inactive 04/28/2016 [facility] Saline Flush 0.9% 10 mL, Route: IVP, Drug Form: INJ, Dosing Weight 75, kg, PRN, PRN Line Flush, Start date: 04/28/16 8:38:00 CDT, Duration: 30 day, Stop date: 05/28/16 7:37:00 CSTNotes: (Same as: BD Posiflush) Inactive 04/28/2016 [facility] ondansetron 8 mg oral tablet 8 mg=1 tab, PO, TID, X 4 day, # 30 tab, 0 Refill(s) Active 09/29/2015 [facility] Acetaminophen 300 MG / butalbital 50 MG / Caffeine 40 MG Oral Capsule [Fioricet] 1 cap, PO, Q4H, PRN Pain, Do not exceed 6 capsules in 24 hours, # 30 caplet, 0 Refill(s) Active 09/29/2015 [facility] Aspirin 325 MG / butalbital 50 MG / Caffeine 40 MG Oral Capsule [Fiorinal] 1 cap, Route: PO, Dosing Weight 71.818, kg, ONCE, STAT, Start date: 09/28/15 20:28:00, Stop date: 09/28/15 20:28:00 Inactive 09/29/2015 [facility] Aspirin 324 mg, Route: PO, ONCE, Dosing Weight 71.818, kg, Priority: STAT, Start date: 09/28/15 18:28:00, Stop date: 09/28/15 18:28:00 Inactive 09/29/2015 [facility] Morphine 4 mg, Route: IVP, ONCE, Dosing Weight 71.818, kg, Priority: STAT, Start date: 09/28/15 18:28:00, Stop date: 09/28/15 18:28:00 Inactive 09/29/2015 [facility] Ondansetron 4 mg, Route: IVP, ONCE, Dosing Weight 71.818, kg, Priority: STAT, Start date: 09/28/15 18:28:00, Stop date: 09/28/15 18:28:00 Inactive 09/29/2015 [facility] Saline Flush 0.9% 10 mL, Route: IVP, Drug Form: INJ, Dosing Weight 71.818, kg, PRN, PRN Line Flush, Start date: 09/28/15 18:28:00, Duration: 30 day, Stop date: 10/28/15 19:27:00Notes: (Same as: BD Posiflush) Inactive 09/29/2015 [facility] Benadryl 25 mg, Route: IVP, ONCE, Dosing Weight 71.818, kg, Priority: STAT, Start date: 09/28/15 18:28:00, Stop date: 09/28/15 18:28:00 Inactive 09/29/2015 [facility] Reglan 10 mg, Route: IVP, Drug form: INJ, ONCE, Dosing Weight 71.818, kg, Priority: STAT, Start date: 09/28/15 18:28:00, Stop date: 09/28/15 18:28:00 Inactive 09/29/2015 [facility] Acetaminophen 300 MG / butalbital 50 MG / Caffeine 40 MG Oral Capsule [Fioricet] 1 cap, PO, Q4H, PRN PRN Headache, Do not exceed 6 capsules in 24 hours, X 10 day, # 60 cap, 0 Refill(s) Active 09/17/2015 [facility] Reglan 10 mg, 2 mL, Route: IVP, Drug form: INJ, ONCE, Dosing Weight 70.455, kg, Priority: STAT, Start date: 09/16/15 18:22:00, Stop date: 09/16/15 18:22:00Notes: (Same as: Reglan) Inactive 09/17/2015 [facility] Benadryl 25 mg, 0.5 mL, Route: IVP, Drug form: INJ, ONCE, Dosing Weight 70.455, kg, Priority: STAT, Start date: 09/16/15 18:22:00, Stop date: 09/16/15 18:22:00Notes: (Same as: Benadryl) Inactive 09/17/2015 [facility] Sodium Chloride 0.154 MEQ/ML Injectable Solution 1,000 mL, 1000 ml/hr, Infuse Over: 1 hr, Route: IV, 1,000, Drug form: INJ, ONCE, Priority: STAT, Dosing Weight 70.455 kg, Start date: 09/16/15 18:21:00, Duration: 1 doses or times, Stop date: 09/16/15 18:21:00 Inactive 09/17/2015 [facility] Ativan 1 mg, 1 tab, Route: PO, Drug form: TAB, ONCE, Dosing Weight 70.455, kg, Priority: STAT, Start date: 09/16/15 18:21:00, Stop date: 09/16/15 18:21:00Notes: (Same as: Ativan) Inactive 09/17/2015 [facility] Allergies, Adverse Reactions, Alerts Substance Category Reaction Severity Reaction type Status Date Reported Comments Source codeine Assertion Drug allergy Active [facility] ibuprofen Assertion Drug allergy Active [facility] [place] amLODIPine Assertion Drug allergy [facility] citalopram Assertion Drug allergy Active [facility] hydrochlorothiazide Assertion Drug allergy Active [facility] lisinopril<sup>1</sup> Assertion Drug allergy Active [facility] [place] pravastatin<sup>2</sup> Assertion Drug allergy Active [facility] [place] traMADol Assertion Drug allergy Active [facility] [place] pravastatin<sup>1</sup> Assertion Drug allergy Active [facility] [place] lisinopril<sup>2</sup> Assertion Drug allergy Active [facility] [place] codeine<sup>1</sup> Assertion Drug allergy Active [facility] ibuprofen<sup>2</sup> Assertion Drug allergy Active [facility] pravastatin<sup>3</sup> Assertion Drug allergy Active [facility] traMADol<sup>4</sup> Assertion Drug allergy Active [facility] Immunizations Immunization Date Given Site Status Last Updated Comments Source Results Order Name Results Value Reference Range Date Interpretation Comments Source Chest 1view DX Chest 1view DX Clinical Indication: - chest pain. Comparison: April 02, 2018 FINDINGS: Frontal chest radiograph was obtained. The lungs are adequately inflated and clear. There is no focal airspace consolidation, pleural effusion or pneumothorax. Cardiac silhouette is within normal limits. The aorta is atherosclerotic and tortuous. The bony structures are unremarkable. A 14 x 2 mm radiopaque density is noted over the left mid hemithorax. This likely represents external artifact and clinical correlation is recommended. IMPRESSION: No acute radiographic abnormality of the thorax. SL: [id number] 04/06/2018 - - Read by: Alistair Padilla MD Dictated Date/time: 04/06/18 15:12 Electronically Signed by: Alistair Padilla MD 04/06/18 15:14 FINAL REPORT [facility] 1view DX Chest 1view DX Clinical Indication: - fatigue; Comparison: 03/27/2018 Technique: X-ray chest frontal projection FINDINGS: There is no consolidation, pleural effusion or pneumothorax. The heart is normal in size. The mediastinum and berna are unremarkable. The visualized bones and soft tissues are within normal limits. IMPRESSION: No chest radiographic evidence of acute cardiopulmonary disease. SHELLI: [email or web address] 04/02/2018 - - Read by: Lana De Luna MD Dictated Date/time: 04/02/18 17:39 Electronically Signed by: Lana De Luna MD 04/02/18 17:40 FINAL REPORT [facility] Chest 1view DX Chest 1view DX EXAM: Chest 1view DX DATE: 03/27/2018 8:40 PM CDT INDICATION: Chest pain - chest pain COMPARISON: 03/25/2018. IMPRESSION: Stable cardiac silhouette and mediastinum. The lungs are mildly hyperexpanded. No focal consolidation, significant pleural effusion or pneumothorax. SL: [email or web address] 03/27/2018 - - Read by: Brett Louise MD Dictated Date/time: 03/27/18 21:14 Electronically Signed by: Brett Louise MD 03/27/18 21:15 FINAL REPORT [facility] Chest 1view DX Chest 1view DX Study: Chest 1view DX Clinical Indication: - CP, SOB Comparison: Chest x-ray from 03/23/2018 FINDINGS: The cardiac silhouette is normal in size. The lungs are clear and without consolidation or congestion. No pleural effusion or pneumothorax is seen. The osseous structures are unremarkable. IMPRESSION: No acute cardiopulmonary disease. SL: PAMELA 03/25/2018 - - Read by: Lev Mathew MD Dictated Date/time: 03/25/18 22:48 Electronically Signed by: Lev Mathew MD 03/25/18 22:48 FINAL REPORT [facility] Brain wo contrast CT Brain wo contrast CT EXAM: CT BRAIN WITHOUT CONTRAST DATE: 03/23/2018 9:13 PM CDT INDICATION: Altered mental status. COMPARISON: 03/18/2018. TECHNIQUE: Noncontrast axial imaging of the brain was acquired from the vertex to the skull base. Reformatted coronal and sagittal images were provided for review. CT radiation dose DLP: 981.84 mGy-cm. FINDINGS: No acute intracranial hemorrhage, midline shift, or mass effect is identified. Old lacunar infarcts are suspected within the thalami. The knight-white matter differentiation is preserved. The ventricles and sulci are prominent, compatible with mild diffuse parenchymal volume loss. The orbits, paranasal sinuses, and mastoid air cells are unremarkable. The calvarium and skull base are intact. Degenerative changes of the right temporomandibular joint are redemonstrated. There is atherosclerotic calcification of the carotid siphons. IMPRESSION: 1. No acute intracranial hemorrhage or mass effect. 2. 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 3. Degenerative changes of the right temporomandibular joint. SL: [id number] 03/23/2018 - - Read by: Garrett Jason MD Dictated Date/time: 03/23/18 21:44 Electronically Signed by: Garrett Jason MD 03/23/18 21:48 FINAL REPORT [facility] Chest 1view DX Chest 1view DX Clinical Indication: Dyspnea, weakness, back pain. Comparison: 03/21/2018 FINDINGS: AP view of the chest submitted for interpretation. Lungs are clear. Heart mildly to moderately enlarged. Central pulmonary vasculature appears normal. No effusion. No pneumothorax. No radiographically apparent acute osseous abnormality. IMPRESSION: 1. No radiographically apparent acute cardiopulmonary process. 2. Mild to moderate cardiomegaly. SL: [id number] 03/23/2018 - - Read by: Essence Perez MD Dictated Date/time: 03/23/18 20:26 Electronically Signed by: Essence Perez MD 03/23/18 20:26 FINAL REPORT [facility] Chest 1view DX Chest 1view DX Study: Chest 1view DX Clinical Indication: - dyspnea Comparison: Chest x-ray from 03/19/2018 FINDINGS: The cardiac silhouette is normal in size. The lungs are clear and without consolidation or congestion. No pleural effusion or pneumothorax is seen. The osseous structures are unremarkable. IMPRESSION: No acute cardiopulmonary disease. SL: [id number] 03/21/2018 - - Read by: Lev Mathew MD Dictated Date/time: 03/21/18 10:30 Electronically Signed by: Lev Mathew MD 03/21/18 10:30 FINAL REPORT [facility] Abdomen RUQ US Abdomen RUQ US PROCEDURE: RIGHT UPPER QUADRANT ULTRASOUND INDICATION: Abdominal pain COMPARISON: No relevant priors available. FINDINGS: LIVER: The liver is normal in contour and morphology with normal parenchymal echogenicity. There is spontaneous phasic flow in the main portal vein on Doppler ultrasound images. GALLBLADDER: Very small amount of mobile echogenic material without distal acoustic shadowing. No gallbladder wall thickening or pericholecystic fluid. BILE DUCTS: The intrahepatic and extrahepatic bile ducts are not dilated with the common duct measuring 5 mm. PANCREAS: The visualized portion of the pancreas appears normal. RIGHT KIDNEY: The right kidney measures 9.8 cm in length. Normal renal contour and morphology with normal echogenicity. There is no hydronephrosis, stones or mass. Additional comments: No abdominal fluid collections detected. IMPRESSION: 1. Small amount of sludge within the gallbladder lumen. No definite stones identified. No bile duct dilatation. END REPORT SHELLI: [id number] 03/19/2018 - - Read by: Colin Marroquin MD Dictated Date/time: 03/19/18 08:13 Electronically Signed by: Colin Marroquin MD 03/19/18 08:15 FINAL REPORT [facility] Chest 1view DX Chest 1view DX EXAM: Chest 1view DX DATE: 03/19/2018 6:20 AM CDT INDICATION: - cough/chest pain. COMPARISON: 03/18/2018. IMPRESSION: Stable cardiac silhouette and mediastinum. Atherosclerotic thoracic aorta. No focal consolidation, significant pleural effusion or pneumothorax. SHELLI: [id number] 03/19/2018 - - Read by: Brett Louise MD Dictated Date/time: 03/19/18 06:45 Electronically Signed by: Brett Louise MD 03/19/18 06:46 FINAL REPORT [facility] Brain wo contrast CT Brain wo contrast CT CT HEAD WITHOUT CONTRAST Clinical Indication: - PUTNAM and HTN. Comparison: 05/15/2016 TECHNIQUE: CT images were obtained from the foramen magnum to the vertex without the use of intravenous contrast on a multidetector CT. CT imaging was performed with exposure control parameters to reduce radiation dose. Coronal and sagittal reconstructions were obtained. CT radiation dose DLP: 901.26 mGy-cm FINDINGS: There is no hemorrhage, extra-axial fluid collection, overt mass, midline shift or hydrocephalus. There is mild generalized cerebral volume loss. The visualized paranasal sinuses are clear. The mastoid air cells are clear. The calvarium and skull base are intact. If clinical concern persists for acute pathology further evaluation with MRI brain can be obtained if warranted. IMPRESSION: No CT evidence of acute intracranial abnormality. SHELLI: MITCHELL 03/18/2018 - - Read by: Quinton Escoto MD Dictated Date/time: 03/18/18 04:12 Electronically Signed by: Quinton Escoto MD 03/18/18 04:17 FINAL REPORT [facility] Chest 1view DX Chest 1view DX EXAM: Chest radiograph HISTORY: Chest pain, shortness of breath, hypertension COMPARISON: 05/15/2016 TECHNIQUE: Frontal view of the chest FINDINGS/IMPRESSION: The lungs are well-inflated and may reflect a deep inspiration or COPD. No appreciable pneumonia, edema, or significant pleural effusion. Heart size upper normal. SL: TVU-PC 03/18/2018 - - Read by: Jude Faye MD Dictated Date/time: 03/18/18 03:35 Electronically Signed by: Jude Faye MD 03/18/18 03:38 FINAL REPORT [facility] Spine lumbar wo contrast MRI Spine lumbar wo contrast MRI EXAM: MRI LUMBAR SPINE WITHOUT CONTRAST DATE: 03/06/2018 1:52 PM CDT . ORDERING PHYSICIAN: Jennie Patterson DO CLINICAL INDICATION: R26.81 Unsteadiness on feet; M54.5 Low back pain - R26.81 Unsteadiness on feet; M54.5 Low back pain; TECHNIQUE: Multiplanar, multisequence MRI lumbar spine without IV contrast COMPARISON: 02/22/2018 lumbar x-rays FINDINGS: For the purposes of enumeration, the lowest well formed intervertebral disc was counted as L5-S1 on this exam. INTRASPINAL CONTENTS/CONUS: The conus terminates at L1-L2. No definite dural based lesion. VERTEBRAE: The vertebrae are normal in height and alignment. No focal suspicious bone marrow signal abnormality. PARASPINAL SOFT TISSUES: No edema or definite masses. No aortic aneurysm. DISC SPACES, SPINAL CANAL, AND NEURAL FORAMINA: Of the lumbar pedicles are short. T12-L1. Intervertebral disc height and signal are maintained. Posterior elements are normal. There is no stenosis. L1-L2. Dehydrated disc with shallow diffuse bulge. This bilateral facet hypertrophy. There is a 5 mm, simple appearing cyst dorsal to the right facets. Central canal measures 10 mm lateral recesses are patent. Disc and facets mildly narrow the neural foramina but do not contact the exiting L1 nerve roots. L2-L3. Dehydrated disc with shallow diffuse bulge and central zone annular fissuring. There is bilateral facet hypertrophy with ligamentous redundancy. Central canal measures 9 mm with no cauda equina mass effect. The disc mildly narrows lateral recess causes no mass effect on the descending L2 nerve roots. Disc and facets mildly moderately narrow the neural foramina and contact the exiting L2 nerve roots, right greater than left. L3-L4. Dehydrated disc with diffuse bulge. There is bilateral facet hypertrophy with ligamentous redundancy. Central canal measures 8 mm with no cauda equina mass effect. Disc and facets narrow the lateral recesses and contacting both descending L4 nerve roots. Disc and facets moderately narrow the neural foramina contacting each exiting L3 nerve root. L4-L5. Dehydrated disc without height loss. There is a shallow diffuse bulge with annular fissuring. There is bilateral facet hypertrophy with mild ligamentous redundancy and right-sided synovial inflammation. Central canal measures 9 mm. Disc and facets narrow the lateral recesses mainly contacting the descending L5 nerve roots. Disc and facets moderately narrow the neural foramina contacting each exiting L4 nerve root. L5-S1. Loss of disc height with shallow disc osteophyte complex. Facets are unremarkable. Central canal measures 9 mm. Lateral recesses are patent. Neural foramina are patent. IMPRESSION: 1. Multiple levels of mild spinal stenosis without mass effect on the cauda equina 2. Multiple levels of potentially significant neural foramen narrowing with disc and/or facets contacting the exiting foraminal nerve roots 03/06/2018 - - Read by: Seun Correa MD Dictated Date/time: 03/07/18 07:54 Electronically Signed by: Seun Correa MD 03/07/18 09:[address] [facility] Spine lumbar 2 or 3 views DX Spine lumbar 2 or 3 views DX Exam: Spine lumbar 2 or 3 views DX Reason for Exam: - M54.5 Low back pain Comparison Exam: CT scan 03/02/2013 Discussion: 5 non rib-bearing lumbar vertebral bodies are seen. Vertebral body heights are maintained. No spondylolisthesis or scoliosis. Facet joint arthropathy seen within the lower lumbar spine. No suspicious osteoblastic or osteolytic lesions. Note that a lumbar spine x-ray cannot rule out ligamentous injuries or spinal cord abnormalities. No dilated loops of bowel within the visualized portions of the abdomen and pelvis. Impression: 1. Vertebral body heights are maintained. No spondylolisthesis or scoliosis. Facet joint arthropathy seen within the lower lumbar spine. 02/22/2018 - - Read by: Alvarado Higginbotham MD Dictated Date/time: 02/23/18 08:15 Electronically Signed by: Alvarado Higginbotham MD 02/23/18 08:33 FINAL REPORT [facility] Knee wo contrast MRI Knee wo contrast MRI EXAMINATION: MRI of the left knee without contrast HISTORY: M25.562 Pain in left knee; left knee pain and swelling with history of fall one month ago; left knee medial and lateral meniscus tears; left knee tricompartmental chondrosis/osteoarthrosis COMPARISON: Radiographs dated 01/25/2018 are reviewed. TECHNIQUE: Multiplanar, multisequence magnetic resonance imaging of the left knee is performed with an extremity coil without contrast. FINDINGS: Menisci: --Medial: There is a complex, degenerative, predominantly horizontal cleavage, tear involving the inner margin of the posterior body and posterior horn of the medial meniscus. --Lateral: There is a complex, degenerative, flap tear involving the anterior horn and body of the lateral meniscus with meniscal flap displaced superiorly along the lateral meniscofemoral recess. Ligaments: There is mucoid degeneration of anterior cruciate ligament with fibers remaining in continuity. There is mild increased intraligamentous signal involving the distal fibers of the posterior cruciate ligament which remains intact. The medial collateral ligament and lateral collateral ligament complex are intact. Extensor mechanism: There is mild diffuse patellar tendinosis. The extensor mechanism is intact. Muscles: There is normal signal intensity and muscle bulk of the musculature at the knee. Cartilage: Within the medial compartment, there is high-grade, deep partial thickness to near full-thickness chondrosis involving the posterior weightbearing and inferior aspect of the far posterior flexion zone of the medial femoral condyle. There are also foci of deep partial thickness chondrosis involving the posterior half of the medial tibial plateau. Within the lateral compartment, there is multifocal high-grade, deep partial thickness to near full-thickness chondrosis involving the weightbearing lateral femoral condyle and matching lateral tibial plateau. Within the patellofemoral component, there is deep partial thickness chondrosis involving the central trochlea. Foci of partial-thickness chondrosis are noted along the patellar median region medial patellar facet. Bone: There are no acute fractures. There is tricompartmental osteophyte formation. There are no suspicious bone marrow replacing lesions. Soft tissues: There is a small knee effusion without Montes's cyst. IMPRESSION: 1. Complex, degenerative, predominantly horizontal cleavage, tear involving the inner margin of the posterior body and posterior horn of the left knee medial meniscus. 2. Complex, degenerative, flap tear involving the anterior horn and anterior body of the left knee lateral meniscus with meniscal flap displaced superiorly along the lateral meniscofemoral recess. 3. Mucoid degeneration of an intact left knee anterior cruciate ligament. 4. Mild increased intraligamentous signal involving the distal fibers of the left knee posterior cruciate ligament which remains intact which may represent a low-grade distal PCL sprain. 5. Moderate to severe lateral, moderate medial, and mild patellofemoral compartment, tricompartmental chondrosis of the left knee as described in detail above. 6. Small left knee effusion. 7. Mild diffuse left patellar tendinosis without tendon tear. 02/06/2018 - - Read by: Forrest Myers MD Dictated Date/time: 02/07/18 12:04 Electronically Signed by: Forrest Myers MD 02/07/18 12:[address] [facility] Knee 3 views DX Knee 3 views DX EXAM: Knee 3 views DX HISTORY: - M25.569 Pain in unspecified knee; W19.XXXA Unspecified fall, initial encounter COMPARISON: None 3 views of the left knee FINDINGS: Small joint effusion. No fracture, dislocation or joint space narrowing. Trace osteophyte formation. IMPRESSION: No acute abnormality. 01/25/2018 - - Read by: Lory Antoine MD Dictated Date/time: 01/25/18 15:43 Electronically Signed by: Lory Antoine MD 01/25/18 15:45 FINAL REPORT [facility] Breast Mammo Scrn DONTAE incl CAD MA Breast Mammo Scrn DONTAE incl CAD MA BILATERAL DIGITAL SCREENING MAMMOGRAM WITH CAD: 11/10/2017 CLINICAL: Routine/Screening. Current study was evaluated with a Computer Aided Detection (CAD) system. COMPARISON:Comparison is made to exams dated: 09/02/2016 mammogram, 01/26/2013 mammogram, 11/23/2011 mammogram - [facility], and 09/18/2010 mammogram - [facility] TECHNIQUE: Mammographic views were obtained using digital acquisition. Current study was also evaluated with a Computer Aided Detection (CAD) system. FINDINGS: There are scattered fibroglandular densities in both breasts. Multiple bilateral asymmetries are stable when accounting for differences in positioning and technique. There are benign calcifications in both breasts. There also are post operative findings in the left breast. No significant masses, calcifications, or other findings are seen in either breast. There has been no significant interval change. IMPRESSION: BENIGN RECOMMENDATION:There is no mammographic evidence of malignancy. A 1 year screening mammogram is recommended.(11/11/2018) This exam was interpreted at [id number] for RONNIE Loaiza SL 15. Professional services are provided by the [facility]. Raheem Horn M.D. cm/penrad:11/11/2017 08:27:55 [employer]ator(s): RT Viry(R)(M), [facility] letter sent: BI-RADS 1/2 Mammogram BI-RADS: 2 Benign 11/10/2017 - - Read by: Nemesio Saenz MD Dictated Date/time: 11/11/17 08:27 Electronically Signed by: Nemesio Saenz MD 11/11/17 08:27 FINAL REPORT [facility] Bone Density DXA [employer] MA Bone Density DXA [employer] MA BONE DENSITY EVALUATION: 05/11/2017 CLINICAL DATA: Post menopausal. M81.0 Age related osteoporosis without current pathological fracture. M81.0/Age-Related Osteoporosis Without Current Pathological Fracture FINDINGS: Bone density evaluation was performed 05/11/2017 on the right femur neck using a Hologic unit. The BMD average for the exam is 0.512 g/cm2. The T-score is - 3.00 and the Z-score is -1.40. This matches the World Health Organization's criteria for osteoporosis and places the patient at a high risk for fracture. An additional bone density evaluation was performed 05/11/2017 on the left femur neck using a Hologic unit. The BMD average for the exam is 0.564 g/cm2. The T- score is -2.60 and the Z-score is -1.00. This matches the World Health Organization's criteria for osteoporosis and places the patient at a high risk for fracture. An additional bone density evaluation was performed 05/11/2017 on the right hip using a Hologic unit. The BMD average for the exam is 0.767 g/cm2. The T-score is -1.40 and the Z-score is 0.10. This matches the World Health Organization's criteria for osteopenia and places the patient at a medium risk for fracture. An additional bone density evaluation was performed 05/11/2017 on the left hip using a Hologic unit. The BMD average for the exam is 0.680 g/cm2. The T-score is -2.20 and the Z-score is -0.70. This matches the World Health Organization's criteria for osteopenia and places the patient at a medium risk for fracture. An additional bone density evaluation was performed 05/11/2017 on the AP L2-L4 region of spine using a Hologic unit. The BMD average for the exam is 0.923 g/cm2. The T-score is -1.40 and the Z-score is 0.70. This matches the World Health Organization's criteria for osteopenia and places the patient at a medium risk for fracture. IMPRESSION: OSTEOPOROSIS Patient is at high risk for fracture. This exam was interpreted at [id number] for SHELLI Elizalde 15. Raheem Horn M.D. cm/penrad:05/11/2017 16:48:33 [employer]ator(s): Leti FELDMAN(R)(M), [facility] 05/11/2017 - - Read by: Nemesio Saenz MD Dictated Date/time: 05/11/17 16:48 Electronically Signed by: Nemesio Saenz MD 05/11/17 16:48 FINAL REPORT [facility] Breast Mammo Scrn DONTAE incl CAD MA Breast Mammo Scrn DONTAE incl CAD MA - BREAST MAMMO SCRN DONTAE INCL CAD MA BILATERAL DIGITAL SCREENING MAMMOGRAM WITH CAD: 09/02/2016 CLINICAL: Z12.31 Encounter For Screening Mammogram For Malignant Neoplasm Of Breast. Current study was evaluated with a Computer Aided Detection (CAD) system. Comparison is made to exams dated: 01/26/2013 mammogram, 11/23/2011 mammogram - [facility] and 09/18/2010 mammogram - [facility] There are scattered fibroglandular densities in both breasts. There are benign calcifications in both breasts. There also are post operative findings in the left breast. No significant masses, calcifications, or other findings are seen in either breast. There has been no significant interval change. IMPRESSION: BENIGN There is no mammographic evidence of malignancy. A 1 year screening mammogram is recommended. Professional services are provided by the [facility] [place] [facility]. Raheem Horn M.D. cm/penrad:09/03/2016 08:34:56 [employer]ator: Leti FELDMAN(Twan)(Taj), [facility] Fadia This exam was dictated and interpreted by [id number] for RONNIE Loaiza. letter sent: Normal exam Mammogram BI-RADS: 2 Benign 09/02/2016 - - Read by: Nemesio Saenz MD Dictated Date/time: 09/03/16 08:34 Electronically Signed by: Nemesio Saenz MD 09/03/16 08:34 FINAL REPORT [facility] CARDIAC ENZYMES Troponin-I null 0.00 - 0.40 05/15/2016 [facility] eGFR 93 mL/min/1.73m2 05/15/2016 Result Comment: The eGFR is calculated using the [...] from the National Kidney Disease Education Program (NKDEP) which additionally recommends that when the eGFR is used in patients with extremes of body mass index for purposes of drug dosing, the eGFR should be multiplied by the estimated BMI. [facility] Calcium Lvl 8.4 mg/dL 8.5 - 10.5 05/15/2016 [facility] Potassium Lvl 3.7 meq/L 3.5 - 5.1 05/15/2016 [facility]M PANEL CO2 26 meq/L 24 - 32 05/15/2016 [facility]EL Chloride Lvl 96 meq/L 95 - 109 05/15/2016 [facility]M PANEL AST 13 unit/L 0 - 37 05/15/2016 [facility] PANEL ALT 20 unit/L 0 - 65 05/15/2016 [facility] Total Protein 7.5 g/dL 6.4 - 8.4 05/15/2016 [facility] Albumin Lvl 3.9 g/dL 3.5 - 5.0 05/15/2016 [facility] PANEL Creatinine Lvl 0.63 mg/dL 0.50 - 1.40 05/15/2016 [facility]M PANEL BUN 7 mg/dL 7 - 22 05/15/2016 [facility] PANEL Sodium Lvl 131 meq/L 135 - 145 05/15/2016 [facility] PANEL Glucose Lvl 110 mg/dL 70 - 99 05/15/2016 [facility] PANEL Bili Total 0.5 mg/dL 0.2 - 1.3 05/15/2016 [facility]M PANEL Alk Phos 35 unit/L 39 - 136 05/15/2016 [facility] A/G Ratio 1.1 0.7 - 1.6 05/15/2016 [facility]M [facility]EL Globulin 3.6 g/dL 2.7 - 4.2 05/15/2016 [facility] PANEL B/C Ratio 11 6 - 25 05/15/2016 [facility]M PANEL AGAP 12.7 meq/L 10.0 - 20.0 05/15/2016 [facility]M PANEL Magnesium Lvl 2.1 mg/dL 1.8 - 2.4 05/15/2016 [facility]M PANEL Phosphorus 2.9 mg/dL 2.5 - 4.5 05/15/2016 [facility] CHEM PANEL Glucose Lvl 109 mg/dL 70 - 99 05/15/2016 [facility] CHEM PANEL BUN 7 mg/dL 7 - 22 05/15/2016 [facility]M PANEL Total Protein 7.9 g/dL 6.4 - 8.4 05/15/2016 [facility]M PANEL Albumin Lvl 4.1 g/dL 3.5 - 5.0 05/15/2016 [facility] CHEM PANEL Chloride Lvl 96 meq/L 95 - 109 05/15/2016 [facility]M PANEL AST 14 unit/L 0 - 37 05/15/2016 [facility] CHEM PANEL Alk Phos 37 unit/L 39 - 136 05/15/2016 [facility] CHEM PANEL Potassium Lvl 3.8 meq/L 3.5 - 5.1 05/15/2016 [facility] CHEM PANEL Creatinine Lvl 0.70 mg/dL 0.50 - 1.40 05/15/2016 [facility] CHEM PANEL Sodium Lvl 130 meq/L 135 - 145 05/15/2016 [facility] CHEM PANEL CO2 26 meq/L 24 - 32 05/15/2016 [facility] CHEM PANEL Calcium Lvl 8.7 mg/dL 8.5 - 10.5 05/15/2016 [facility] CHEM PANEL eGFR 90 mL/min/1.73m2 05/15/2016 Result Comment: The eGFR is calculated using the [...] from the National Kidney Disease Education Program (NKDEP) which additionally recommends that when the eGFR is used in patients with extremes of body mass index for purposes of drug dosing, the eGFR should be multiplied by the estimated BMI. [facility] CHEM PANEL B/C Ratio 10 6 - 25 05/15/2016 [facility] CHEM PANEL Globulin 3.8 g/dL 2.7 - 4.2 05/15/2016 [facility] CHEM PANEL Bili Total 0.4 mg/dL 0.2 - 1.3 05/15/2016 [facility] CHEM PANEL AGAP 11.8 meq/L 10.0 - 20.0 05/15/2016 [facility] CHEM PANEL ALT 22 unit/L 0 - 65 05/15/2016 [facility] CHEM PANEL A/G Ratio 1.1 0.7 - 1.6 05/15/2016 [facility] HEMATOLOGY RBC 3.68 M/CMM 4.20 - 5.40 05/15/2016 [facility] HEMATOLOGY WBC 5.5 K/CMM 3.7 - 10.4 05/15/2016 [facility] MCH 31.2 pg 27.0 - 31.0 05/15/2016 [facility] [place] Hgb 11.5 g/dL 12.0 - 16.0 05/15/2016 [facility] HEMATOLOGY Hct 33.4 % 36.0 - 48.0 05/15/2016 [facility] [place] MCV 90.5 fL 80.0 - 98.0 05/15/2016 [facility] [place] MCHC 34.5 g/dL 32.0 - 36.0 05/15/2016 [facility] [place] Platelet 219 K/CMM 133 - 450 05/15/2016 [facility] [place] RDW 12.6 % 11.5 - 14.5 05/15/2016 [facility] [place] MPV 7.9 fL 7.4 - 10.4 05/15/2016 [facility] [place] Basophils 0.6 % 0.0 - 1.0 05/15/2016 [facility] [place] Lymphocytes # 1.2 K/CMM 1.0 - 5.5 05/15/2016 [facility] [place] Segs-Bands # 3.6 K/CMM 1.5 - 8.1 05/15/2016 [facility] [place] Eosinophils 2.5 % 0.0 - 4.0 05/15/2016 [facility] [place] Eosinophils # 0.1 K/CMM 0.0 - 0.5 05/15/2016 [facility] [place] Monocytes # 0.5 K/CMM 0.0 - 0.8 05/15/2016 [facility] [place] Segs 66.4 % 45.0 - 75.0 05/15/2016 [facility] [place] Lymphocytes 21.5 % 20.0 - 40.0 05/15/2016 [facility] [place] Monocytes 9.0 % 2.0 - 12.0 05/15/2016 [facility] Chest 1view DX Chest 1view DX EXAM: XR CHEST 1 VIEW DATE: 05/15/2016 12:39 AM CDT INDICATION: Chest pain COMPARISON: 05/04/2016 TECHNIQUE: Frontal chest radiograph FINDINGS: The lungs are clear. The cardiomediastinal silhouette is normal. There is no acute bony abnormality. IMPRESSION: No acute abnormality SL: [id number] 05/15/2016 - - Read by: Miguel Pearson Dictated Date/time: 05/15/16 01:18 Electronically Signed by: Miguel Pearson 05/15/16 01:18 FINAL REPORT [facility] Brain wo contrast CT Brain wo contrast CT Clinical Indication: Headache with Dizziness and Giddiness pt c/o burning to l arm s/p every time she takes her medication. Pt reports her md knows but pt wants a second opinion. Pt states the medications for her bp and anxiety have been causing the problem Comparison: 05/02/2016 TECHNIQUE: CT images were obtained from the foramen magnum to the vertex without the use of intravenous contrast on a multidetector CT. Coronal and sagittal reconstructions were obtained. CT radiation dose DLP: 92.11 mGy-cm FINDINGS: BRAIN PARENCHYMA: There are normal knight-white interfaces, sulci and gyri. There are no focal mass lesions on this noncontrast head CT. There is no mass effect, midline shift or edema. There are no intra-axial or extra-axial fluid collections, intraventricular or intraparenchymal hemorrhage. The pineal, sellar, brainstem, cerebellum and skull base regions appear unremarkable. VENTRICLES: The lateral ventricles, third and fourth ventricles appear unremarkable. The basilar cisterns are normal. ORBITS, MASTOIDS AND PARANASAL SINUSES: The visualized orbits and paranasal sinuses are otherwise unremarkable. The mastoid air cells are unopacified. SKULL: There are no osseous abnormalities. If there is further concern for intracranial pathology or acute stroke, MRI of the brain may be performed for complete assessment. IMPRESSION: 1. Unremarkable noncontrast head CT with no CT evidence of a mass, hemorrhage, or subacute stroke. SL: [id number]-MARGOT 05/15/2016 - - Read by: Derek Barboza DO Dictated Date/time: 05/15/16 01:52 Electronically Signed by: Derek Barboza DO 05/15/16 01:54 FINAL REPORT [facility] CHEM PANEL BUN 8 mg/dL 7 - 22 05/08/2016 [facility] CHEM PANEL Potassium Lvl 3.7 meq/L 3.5 - 5.1 05/08/2016 [facility] CHEM PANEL Creatinine Lvl 0.67 mg/dL 0.50 - 1.40 05/08/2016 [facility] CHEM PANEL Sodium Lvl 128 meq/L 135 - 145 05/08/2016 [facility] CHEM PANEL Chloride Lvl 97 meq/L 95 - 109 05/08/2016 [facility] CHEM PANEL AGAP 9.7 meq/L 10.0 - 20.0 05/08/2016 [facility] CHEM PANEL CO2 25 meq/L 24 - 32 05/08/2016 [facility] CHEM PANEL Calcium Lvl 8.8 mg/dL 8.5 - 10.5 05/08/2016 [facility] CHEM PANEL Glucose Lvl 125 mg/dL 70 - 99 05/08/2016 [facility] CHEM PANEL eGFR 91 mL/min/1.73m2 05/08/2016 Result Comment: The eGFR is calculated using the [...] from the National Kidney Disease Education Program (NKDEP) which additionally recommends that when the eGFR is used in patients with extremes of body mass index for purposes of drug dosing, the eGFR should be multiplied by the estimated BMI. [facility] CHEM PANEL Ketone Quantitative 0.26 mmol/L <=0.27 mmol/L 05/08/2016 [facility] ELECTROLYTES CO2 24 meq/L 24 - 32 05/08/2016 [facility] ELECTROLYTES Calcium Lvl 9.0 mg/dL 8.5 - 10.5 05/08/2016 [facility] ELECTROLYTES eGFR 85 mL/min/1.73m2 05/08/2016 Result Comment: The eGFR is calculated using the [...] from the National Kidney Disease Education Program (NKDEP) which additionally recommends that when the eGFR is used in patients with extremes of body mass index for purposes of drug dosing, the eGFR should be multiplied by the estimated BMI. [facility] ELECTROLYTES Chloride Lvl 91 meq/L 95 - 109 05/08/2016 [facility] ELECTROLYTES Potassium Lvl 3.7 meq/L 3.5 - 5.1 05/08/2016 [facility] ELECTROLYTES BUN 9 mg/dL 7 - 22 05/08/2016 [facility] ELECTROLYTES Glucose Lvl 111 mg/dL 70 - 99 05/08/2016 [facility] ELECTROLYTES Sodium Lvl 124 meq/L 135 - 145 05/08/2016 [facility] ELECTROLYTES Creatinine Lvl 0.73 mg/dL 0.50 - 1.40 05/08/2016 [facility] ELECTROLYTES AGAP 12.7 meq/L 10.0 - 20.0 05/08/2016 [facility] HEMATOLOGY Monocytes # 0.5 K/CMM 0.0 - 0.8 05/08/2016 [facility] HEMATOLOGY Lymphocytes # 1.4 K/CMM 1.0 - 5.5 05/08/2016 [facility] HEMATOLOGY Segs-Bands # 4.0 K/CMM 1.5 - 8.1 05/08/2016 [facility] HEMATOLOGY Basophils 0.6 % 0.0 - 1.0 05/08/2016 [facility] HEMATOLOGY Eosinophils 0.7 % 0.0 - 4.0 05/08/2016 [facility] HEMATOLOGY Monocytes 7.9 % 2.0 - 12.0 05/08/2016 [facility] HEMATOLOGY Lymphocytes 23.8 % 20.0 - 40.0 05/08/2016 [facility] HEMATOLOGY Segs 67.0 % 45.0 - 75.0 05/08/2016 [facility] HEMATOLOGY MCHC 34.0 g/dL 32.0 - 36.0 05/08/2016 [facility] HEMATOLOGY MPV 7.9 fL 7.4 - 10.4 05/08/2016 [facility] HEMATOLOGY Hct 32.4 % 36.0 - 48.0 05/08/2016 [facility] HEMATOLOGY Platelet 207 K/CMM 133 - 450 05/08/2016 [facility] HEMATOLOGY RDW 12.4 % 11.5 - 14.5 05/08/2016 [facility] HEMATOLOGY RBC 3.59 M/CMM 4.20 - 5.40 05/08/2016 [facility] HEMATOLOGY Hgb 11.0 g/dL 12.0 - 16.0 05/08/2016 [facility] HEMATOLOGY MCH 30.8 pg 27.0 - 31.0 05/08/2016 [facility] HEMATOLOGY MCV 90.4 fL 80.0 - 98.0 05/08/2016 [facility] HEMATOLOGY WBC 6.0 K/CMM 3.7 - 10.4 05/08/2016 [facility] CARDIAC ENZYMES CK MB Index 1.1 0.0 - 2.5 05/04/2016 [facility] CARDIAC ENZYMES Troponin-I null 0.00 - 0.40 05/04/2016 [facility] CARDIAC ENZYMES Total CK 242 unit/L 12 - 191 05/04/2016 [facility] CARDIAC ENZYMES CK MB 2.6 ng/mL 0.5 - 3.6 05/04/2016 [facility] CHEM PANEL eGFR 74 mL/min/1.73m2 05/04/2016 Result Comment: The eGFR is calculated using the [...] from the National Kidney Disease Education Program (NKDEP) which additionally recommends that when the eGFR is used in patients with extremes of body mass index for purposes of drug dosing, the eGFR should be multiplied by the estimated BMI. [facility] CHEM PANEL Bili Total 0.3 mg/dL 0.2 - 1.3 05/04/2016 [facility] CHEM PANEL AGAP 12.1 meq/L 10.0 - 20.0 05/04/2016 [facility] CHEM PANEL B/C Ratio 11 6 - 25 05/04/2016 [facility] CHEM PANEL Globulin 3.9 g/dL 2.7 - 4.2 05/04/2016 [facility] CHEM PANEL A/G Ratio 1.0 0.7 - 1.6 05/04/2016 [facility] CHEM PANEL Total Protein 7.8 g/dL 6.4 - 8.4 05/04/2016 [facility] CHEM PANEL Albumin Lvl 3.9 g/dL 3.5 - 5.0 05/04/2016 [facility] CHEM PANEL ALT 19 unit/L 0 - 65 05/04/2016 [facility] CHEM PANEL Calcium Lvl 8.6 mg/dL 8.5 - 10.5 05/04/2016 [facility] CHEM PANEL Alk Phos 37 unit/L 39 - 136 05/04/2016 [facility] CHEM PANEL AST 25 unit/L 0 - 37 05/04/2016 [facility] CHEM PANEL Glucose Lvl 132 mg/dL 70 - 99 05/04/2016 [facility] CHEM PANEL BUN 9 mg/dL 7 - 22 05/04/2016 [facility] CHEM PANEL Sodium Lvl 126 meq/L 135 - 145 05/04/2016 [facility] CHEM PANEL Chloride Lvl 95 meq/L 95 - 109 05/04/2016 [facility] CHEM PANEL Creatinine Lvl 0.82 mg/dL 0.50 - 1.40 05/04/2016 [facility] CHEM PANEL Potassium Lvl 4.1 meq/L 3.5 - 5.1 05/04/2016 [facility] CHEM PANEL CO2 23 meq/L 24 - 32 05/04/2016 [facility] HEMATOLOGY Basophils # 0.1 K/CMM 0.0 - 0.2 05/04/2016 [facility] HEMATOLOGY Eosinophils 0.5 % 0.0 - 4.0 05/04/2016 [facility] HEMATOLOGY Lymphocytes # 2.3 K/CMM 1.0 - 5.5 05/04/2016 [facility] HEMATOLOGY Segs-Bands # 3.9 K/CMM 1.5 - 8.1 05/04/2016 [facility] HEMATOLOGY Monocytes # 0.4 K/CMM 0.0 - 0.8 05/04/2016 [facility] HEMATOLOGY Basophils 0.8 % 0.0 - 1.0 05/04/2016 [facility] HEMATOLOGY Segs 57.6 % 45.0 - 75.0 05/04/2016 [facility] HEMATOLOGY Monocytes 6.6 % 2.0 - 12.0 05/04/2016 [facility] HEMATOLOGY Lymphocytes 34.5 % 20.0 - 40.0 05/04/2016 [facility] HEMATOLOGY RBC 3.84 M/CMM 4.20 - 5.40 05/04/2016 [facility] HEMATOLOGY Hct 34.3 % 36.0 - 48.0 05/04/2016 [facility] HEMATOLOGY MCH 30.3 pg 27.0 - 31.0 05/04/2016 [facility] HEMATOLOGY MCV 89.4 fL 80.0 - 98.0 05/04/2016 [facility] HEMATOLOGY WBC 6.7 K/CMM 3.7 - 10.4 05/04/2016 [facility] HEMATOLOGY Hgb 11.6 g/dL 12.0 - 16.0 05/04/2016 [facility] HEMATOLOGY RDW 12.4 % 11.5 - 14.5 05/04/2016 [facility] HEMATOLOGY MCHC 33.9 g/dL 32.0 - 36.0 05/04/2016 [facility] HEMATOLOGY Platelet 213 K/CMM 133 - 450 05/04/2016 [facility] HEMATOLOGY MPV 7.6 fL 7.4 - 10.4 05/04/2016 [facility] Chest 1view DX Chest 1view DX EXAM: XR CHEST 1 VIEW DATE: 05/04/2016 1:02 AM CDT INDICATION: Chest pain COMPARISON: 05/02/2016 TECHNIQUE: Frontal chest radiograph FINDINGS: The lungs are clear. The cardiomediastinal silhouette is normal. There is no acute bony abnormality. IMPRESSION: No acute abnormality SL: DEDE 05/04/2016 - - Read by: Miguel Pearson Dictated Date/time: 05/04/16 01:28 Electronically Signed by: Miguel Pearson 05/04/16 01:29 FINAL REPORT [facility] URINE AND STOOL UA Spec Grav 1.005 <=1.030 05/03/2016 [facility] URINE AND STOOL UA Turbidity Clear (05/02/16 7:58 PM) Clear 05/03/2016 [facility] URINE AND STOOL UA pH 8.0 5.0 - 8.0 05/03/2016 [facility] URINE AND STOOL UA Glucose Negative mg/dL Negative mg/dL 05/03/2016 [facility] URINE AND STOOL UA Protein Negative mg/dL Negative mg/dL 05/03/2016 [facility] URINE AND STOOL UA Ketones Negative mg/dL Negative mg/dL 05/03/2016 [facility] URINE AND STOOL UA Bili Negative *NA* (05/02/16 7:58 PM) Negative 05/03/2016 [facility] URINE AND STOOL UA Nitrite Negative (05/02/16 7:58 PM) Negative 05/03/2016 [facility] URINE AND STOOL UA Blood Negative (05/02/16 7:58 PM) Negative 05/03/2016 [facility] URINE AND STOOL UA Leuk Est Negative (05/02/16 7:58 PM) Negative 05/03/2016 [facility] URINE AND STOOL UA WBC null 0 - 5 05/03/2016 [facility] URINE AND STOOL UA Sq Epi Occasional /LPF Few /LPF 05/03/2016 [facility] URINE AND STOOL UA Color Colorless 05/03/2016 [facility] URINE AND STOOL UA RBC 2 /HPF 0 - 2 05/03/2016 [facility] URINE AND STOOL UA Urobilinogen <=1.0 mg/dL 0.1 - 1.0 05/03/2016 [facility] CARDIAC ENZYMES BNP 38 pg/mL <=100 pg/mL 05/02/2016 [facility] CARDIAC ENZYMES Total CK 187 unit/L 12 - 191 05/02/2016 [facility] CARDIAC ENZYMES CK MB 2.2 ng/mL 0.5 - 3.6 05/02/2016 [facility] CARDIAC ENZYMES Troponin-I null 0.00 - 0.40 05/02/2016 [facility] CARDIAC ENZYMES CK MB Index 1.2 0.0 - 2.5 05/02/2016 [facility] CHEM PANEL eGFR 78 mL/min/1.73m2 05/02/2016 Result Comment: The eGFR is calculated using the [...] from the National Kidney Disease Education Program (NKDEP) which additionally recommends that when the eGFR is used in patients with extremes of body mass index for purposes of drug dosing, the eGFR should be multiplied by the estimated BMI. [facility] CHEM PANEL Albumin Lvl 4.3 g/dL 3.5 - 5.0 05/02/2016 [facility] CHEM PANEL Potassium Lvl 3.8 meq/L 3.5 - 5.1 05/02/2016 [facility] CHEM PANEL ALT 19 unit/L 0 - 65 05/02/2016 [facility] CHEM PANEL AST 19 unit/L 0 - 37 05/02/2016 [facility] CHEM PANEL Calcium Lvl 9.1 mg/dL 8.5 - 10.5 05/02/2016 [facility] CHEM PANEL Total Protein 8.7 g/dL 6.4 - 8.4 05/02/2016 [facility] CHEM PANEL Chloride Lvl 95 meq/L 95 - 109 05/02/2016 [facility] CHEM PANEL CO2 26 meq/L 24 - 32 05/02/2016 [facility] CHEM PANEL Creatinine Lvl 0.79 mg/dL 0.50 - 1.40 05/02/2016 [facility] CHEM PANEL Sodium Lvl 129 meq/L 135 - 145 05/02/2016 [facility] CHEM PANEL Glucose Lvl 135 mg/dL 70 - 99 05/02/2016 [facility] CHEM PANEL BUN 10 mg/dL 7 - 22 05/02/2016 [facility] CHEM PANEL A/G Ratio 1.0 0.7 - 1.6 05/02/2016 [facility] CHEM PANEL B/C Ratio 13 6 - 25 05/02/2016 [facility] CHEM PANEL Globulin 4.4 g/dL 2.7 - 4.2 05/02/2016 [facility] CHEM PANEL Bili Total 0.3 mg/dL 0.2 - 1.3 05/02/2016 [facility] CHEM PANEL AGAP 11.8 meq/L 10.0 - 20.0 05/02/2016 [facility] CHEM PANEL Alk Phos 40 unit/L 39 - 136 05/02/2016 [facility] HEMATOLOGY Platelet 205 K/CMM 133 - 450 05/02/2016 [facility] HEMATOLOGY MPV 8.2 fL 7.4 - 10.4 05/02/2016 [facility] HEMATOLOGY MCH 31.3 pg 27.0 - 31.0 05/02/2016 [facility] HEMATOLOGY Hct 35.3 % 36.0 - 48.0 05/02/2016 [facility] HEMATOLOGY MCHC 34.8 g/dL 32.0 - 36.0 05/02/2016 [facility] HEMATOLOGY MCV 90.0 fL 80.0 - 98.0 05/02/2016 [facility] HEMATOLOGY RDW 12.8 % 11.5 - 14.5 05/02/2016 [facility] HEMATOLOGY RBC 3.92 M/CMM 4.20 - 5.40 05/02/2016 [facility] HEMATOLOGY WBC 5.8 K/CMM 3.7 - 10.4 05/02/2016 [facility] HEMATOLOGY Hgb 12.3 g/dL 12.0 - 16.0 05/02/2016 [facility] HEMATOLOGY Eosinophils 0.3 % 0.0 - 4.0 05/02/2016 [facility] HEMATOLOGY Basophils 0.6 % 0.0 - 1.0 05/02/2016 [facility] HEMATOLOGY Segs-Bands # 3.9 K/CMM 1.5 - 8.1 05/02/2016 [facility] HEMATOLOGY Lymphocytes 24.8 % 20.0 - 40.0 05/02/2016 [facility] HEMATOLOGY Monocytes 6.8 % 2.0 - 12.0 05/02/2016 [facility] HEMATOLOGY Segs 67.5 % 45.0 - 75.0 05/02/2016 [facility] HEMATOLOGY Lymphocytes # 1.4 K/CMM 1.0 - 5.5 05/02/2016 [facility] HEMATOLOGY Monocytes # 0.4 K/CMM 0.0 - 0.8 05/02/2016 [facility] Brain wo contrast CT Brain wo contrast CT Addendum: I agree with the above report Brain wo contrast CT CLINICAL HISTORY: Weakness; COMPARISON: None TECHNIQUE: Contiguous transaxial images of the brain were performed without administration of IV contrast. Reformations were performed in sagittal and coronal projections. FINDINGS: BRAIN PARENCHYMA: There is no evidence for space-occupying lesions, mass effect or vasogenic edema. No evidence for parenchymal bleed, extra-axial collections or midline shift.. No acute infarct is noted. Cerebral volume is within normal limits. No ventriculomegaly. The basilar cisterns are normal. Cerebellum demonstrates normal morphology and volume. CALVARIUM AND SKULL BASE: No displaced bony fractures or other significant bony abnormality is visualized. BRAINSTEM, SELLA AND ORBITS: No evidence for Chiari malformation. No space- occupying lesion is visualized in the sella. Visualized portion of the orbits are unremarkable. MASTOIDS AND PARANASAL SINUSES: The visualized paranasal sinuses are clear. Mastoid air cells are clear bilaterally. IMPRESSION: No acute brain abnormality is noted. SL: [id number] 05/02/2016 - - Read by: Irlanda Dupree MD Dictated Date/time: 05/02/16 19:59 Electronically Signed by: Irlanda Dupree MD 05/02/16 19:59 FINAL REPORT - - Read by: Joao Daniels MD Dictated Date/time: 05/02/16 19:55 Electronically Signed by: Joao Daniels MD 05/02/16 19:57 FINAL REPORT [facility] Chest 1view DX Chest 1view DX Clinical Indication:65 years Female with Chest pain Comparison: Chest x-ray 05/02/2016 at 01 50 FINDINGS: Lines: None. The single frontal chest radiograph shows normal lung volumes. No interstitial or airspace opacities. No pleural effusion. No pneumothorax. Cardiac silhouette is stable. Pulmonary vasculature is normal. The trachea is midline. There are no clinically significant osseous abnormalities noted. IMPRESSION: No chest radiographic evidence of acute cardiopulmonary disease. 05/02/2016 - - Read by: Kings Khan MD Dictated Date/time: 05/02/16 19:14 Electronically Signed by: Kings Khan MD 05/02/16 19:15 FINAL REPORT [facility] CARDIAC ENZYMES Troponin-I null 0.00 - 0.40 05/02/2016 [facility] CHEM PANEL eGFR 90 mL/min/1.73m2 05/02/2016 Result Comment: The eGFR is calculated using the [...] from the National Kidney Disease Education Program (NKDEP) which additionally recommends that when the eGFR is used in patients with extremes of body mass index for purposes of drug dosing, the eGFR should be multiplied by the estimated BMI. [facility] CHEM PANEL CO2 17 meq/L 24 - 32 05/02/2016 [facility] CHEM PANEL Calcium Lvl 8.4 mg/dL 8.5 - 10.5 05/02/2016 [facility] CHEM PANEL Glucose Lvl 111 mg/dL 70 - 99 05/02/2016 [facility] CHEM PANEL Sodium Lvl 130 meq/L 135 - 145 05/02/2016 [facility] CHEM PANEL BUN 15 mg/dL 7 - 22 05/02/2016 [facility] CHEM PANEL Potassium Lvl 3.8 meq/L 3.5 - 5.1 05/02/2016 [facility] CHEM PANEL Chloride Lvl 102 meq/L 95 - 109 05/02/2016 [facility] CHEM PANEL Creatinine Lvl 0.69 mg/dL 0.50 - 1.40 05/02/2016 [facility] CHEM PANEL AGAP 14.8 meq/L 10.0 - 20.0 05/02/2016 [facility] HEMATOLOGY Lymphocytes # 2.3 K/CMM 1.0 - 5.5 05/02/2016 [facility] HEMATOLOGY Basophils 0.7 % 0.0 - 1.0 05/02/2016 [facility] HEMATOLOGY Segs-Bands # 3.5 K/CMM 1.5 - 8.1 05/02/2016 [facility] HEMATOLOGY Monocytes 7.6 % 2.0 - 12.0 05/02/2016 [facility] HEMATOLOGY Eosinophils 0.7 % 0.0 - 4.0 05/02/2016 [facility] Lymphocytes 36.1 % 20.0 - 40.0 05/02/2016 [facility] Monocytes # 0.5 K/CMM 0.0 - 0.8 05/02/2016 [facility] Segs 54.9 % 45.0 - 75.0 05/02/2016 [facility] MPV 8.2 fL 7.4 - 10.4 05/02/2016 [facility] Platelet 200 K/CMM 133 - 450 05/02/2016 [facility] RDW 12.6 % 11.5 - 14.5 05/02/2016 [facility] MCHC 33.7 g/dL 32.0 - 36.0 05/02/2016 [facility] MCH 30.4 pg 27.0 - 31.0 05/02/2016 [facility] WBC 6.4 K/CMM 3.7 - 10.4 05/02/2016 [facility] RBC 3.63 M/CMM 4.20 - 5.40 05/02/2016 [facility] MCV 90.2 fL 80.0 - 98.0 05/02/2016 [facility] Hct 32.8 % 36.0 - 48.0 05/02/2016 [facility] Hgb 11.0 g/dL 12.0 - 16.0 05/02/2016 [facility] Chest Pulmonary Embolism CTA Chest Pulmonary Embolism CTA EXAM: CTA CHEST WITH CONTRAST DATE: 05/02/2016 2:55 AM CDT INDICATION: Shortness of Breath COMPARISON: None TECHNIQUE: Volumetric CT acquisition of the chest, during pulmonary arterial phase, after 95 mL Omnipaque intravenous contrast. Sagittal and coronal reconstructions are provided. DLP: 645 mGy-cm FINDINGS: Lines and tubes: None Lower neck: Visualized portions are unremarkable. Heart: Coronary calcifications. No pericardial effusion. Vasculature: There is adequate opacification of the pulmonary arteries. No filling defects are identified to suggest the presence of pulmonary emboli. The main pulmonary artery has normal caliber. The ascending and descending thoracic aorta measure within normal limits. There is no significant atherosclerotic plaque. Lymph Nodes: There is no hilar, mediastinal, axillary, or internal mammary lymphadenopathy. Lungs: The trachea and major bronchi are patent. There are mild bilateral dependent atelectatic changes. The lungs are otherwise clear. There is no pleural effusion. Upper abdomen: Hepatic steatosis. Bones: No acute abnormality. Multiple prominent anterior bridging osteophyte are present throughout the thoracic spine. Soft tissues: Unremarkable. IMPRESSION: No pulmonary embolus. No acute abnormality. SL: DEDE 05/02/2016 - - Read by: Miguel Pearson Dictated Date/time: 05/02/16 04:28 Electronically Signed by: Miguel Pearson 05/02/16 04:34 FINAL REPORT [facility] Chest 1view DX Chest 1view DX EXAM: XR CHEST 1 VIEW DATE: 05/02/2016 1:41 AM CDT INDICATION: Chest pain COMPARISON: 04/28/2016 TECHNIQUE: Frontal chest radiograph FINDINGS: The lungs are clear. The cardiomediastinal silhouette is normal. There is no acute bony abnormality. IMPRESSION: No acute abnormality SL: [id number] 05/02/2016 - - Read by: Miguel Pearson Dictated Date/time: 05/02/16 02:09 Electronically Signed by: Miguel Pearson 05/02/16 02:09 FINAL REPORT [facility] CHEM [facility] eGFR 90 mL/min/1.73m2 04/30/2016 Result Comment: The eGFR is calculated using the [...] from the National Kidney Disease Education Program (NKDEP) which additionally recommends that when the eGFR is used in patients with extremes of body mass index for purposes of drug dosing, the eGFR should be multiplied by the estimated BMI. [facility] CHEM PANEL Calcium Lvl 8.6 mg/dL 8.5 - 10.5 04/30/2016 [facility] CHEM PANEL AGAP 14.1 meq/L 10.0 - 20.0 04/30/2016 [facility] CHEM PANEL Creatinine Lvl 0.70 mg/dL 0.50 - 1.40 04/30/2016 [facility] CHEM PANEL BUN 13 mg/dL 7 - 22 04/30/2016 [facility] CHEM PANEL Glucose Lvl 112 mg/dL 70 - 99 04/30/2016 [facility] CHEM PANEL Chloride Lvl 98 meq/L 95 - 109 04/30/2016 [facility] CHEM PANEL Potassium Lvl 4.1 meq/L 3.5 - 5.1 04/30/2016 [facility] CHEM PANEL Sodium Lvl 131 meq/L 135 - 145 04/30/2016 [facility] CHEM PANEL CO2 23 meq/L 24 - 32 04/30/2016 [facility] CHEM PANEL Calcium Lvl 8.9 mg/dL 8.5 - 10.5 04/29/2016 [facility] CHEM PANEL AGAP 12.2 meq/L 10.0 - 20.0 04/29/2016 [facility] CHEM PANEL eGFR 69 mL/min/1.73m2 04/29/2016 Result Comment: The eGFR is calculated using the [...] from the National Kidney Disease Education Program (NKDEP) which additionally recommends that when the eGFR is used in patients with extremes of body mass index for purposes of drug dosing, the eGFR should be multiplied by the estimated BMI. [facility] CHEM PANEL Sodium Lvl 127 meq/L 135 - 145 04/29/2016 [facility] CHEM PANEL Creatinine Lvl 0.87 mg/dL 0.50 - 1.40 04/29/2016 [facility] CHEM PANEL CO2 24 meq/L 24 - 32 04/29/2016 [facility] CHEM PANEL Chloride Lvl 95 meq/L 95 - 109 04/29/2016 [facility] CHEM PANEL Potassium Lvl 4.2 meq/L 3.5 - 5.1 04/29/2016 [facility] CHEM PANEL BUN 13 mg/dL 7 - 22 04/29/2016 [facility] CHEM PANEL Glucose Lvl 179 mg/dL 70 - 99 04/29/2016 [facility] URINE CHEM U Osmolality 383 mOsm/kg 300 - 800 04/29/2016 [facility] URINE CHEM U Chloride 62 meq/L 04/29/2016 [facility] URINE CHEM U Sodium 56 meq/L 04/29/2016 [facility] CHEM PANEL eGFR 90 mL/min/1.73m2 04/29/2016 Result Comment: The eGFR is calculated using the [...] from the National Kidney Disease Education Program (NKDEP) which additionally recommends that when the eGFR is used in patients with extremes of body mass index for purposes of drug dosing, the eGFR should be multiplied by the estimated BMI. [facility] CHEM PANEL Glucose Lvl 111 mg/dL 70 - 99 04/29/2016 [facility] CHEM PANEL Sodium Lvl 129 meq/L 135 - 145 04/29/2016 [facility] CHEM PANEL Creatinine Lvl 0.69 mg/dL 0.50 - 1.40 04/29/2016 [facility] CHEM PANEL BUN 12 mg/dL 7 - 22 04/29/2016 [facility] CHEM PANEL Potassium Lvl 4.2 meq/L 3.5 - 5.1 04/29/2016 [facility] CHEM PANEL Chloride Lvl 97 meq/L 95 - 109 04/29/2016 [facility] CHEM PANEL AGAP 10.2 meq/L 10.0 - 20.0 04/29/2016 [facility] CHEM PANEL Calcium Lvl 8.8 mg/dL 8.5 - 10.5 04/29/2016 [facility] CHEM PANEL CO2 26 meq/L 24 - 32 04/29/2016 [facility] Cardiac SPECT multi studies NM Cardiac SPECT multi studies NM PATIENT NAME: ALFREDO ABAD DATE OF SERVICE: 04/29/2016 *_*_* PROCEDURE TITLE Rest/stress single isotope SPECT imaging with pharmacologic stress and gated SPECT imaging. INDICATIONS Assessment of chest pain. DESCRIPTION OF PROCEDURE Pharmacologic stress test was performed with regadenoson per protocol. The heart rate was 85 beats per minute at baseline and increased to 121 beats per minute during the regadenoson infusion. The rest blood pressure was 144/76 and increased to 166/60 which is a normal response. The patient did not develop any significant symptoms during the procedure. The resting electrocardiogram demonstrated normal sinus rhythm. There were no ST-segment changes consistent with myocardial ischemia or arrhythmias at peak stress or during the recovery period. Myocardial perfusion imaging was performed at rest following the injection of 11 mCi of sestamibi. At peak pharmacological effect, the patient was injected with 33 mCi of sestamibi. Gated post-stress tomographic imaging was performed. FINDINGS: The overall quality of the study is good. Left ventricular cavity is noted to be normal on the rest and stress studies. SPECT images demonstrate homogeneous tracer distribution throughout the myocardium. Gated SPECT imaging reveals normal myocardial thickening and wall motion. The left ventricular ejection fraction was calculated to be greater than 70%. IMPRESSION: Myocardial perfusion imaging is normal. Overall left ventricular systolic function was normal without regional wall motion abnormalities. _*_*_ Dictated by: JOSE RAI MD cc: SOFTWARE TEST ENGINEER / M: SOFTWARE TEST ENGINEER [facility]/[id number] Doc#: [id number]//lt/ Signature Line Jose Rai MD Electronically Signed: 05/12/16 08:44 04/29/2016 - - Electronically Signed by: Jose Rai MD 10/23/16 10:31 FINAL REPORT [facility] CARDIAC ENZYMES CK MB Index 0.8 0.0 - 2.5 04/29/2016 [facility] CARDIAC ENZYMES CK MB 1.4 ng/mL 0.5 - 3.6 04/29/2016 [facility] CARDIAC ENZYMES Total CK 182 unit/L 04/29/2016 [facility] CARDIAC ENZYMES Troponin-I null 0.00 - 0.40 04/29/2016 [facility] CARDIAC ENZYMES CK MB 1.7 ng/mL 0.5 - 3.6 04/28/2016 [facility] CARDIAC ENZYMES CK MB Index 0.9 0.0 - 2.5 04/28/2016 [facility] CARDIAC ENZYMES Total CK 195 unit/L 12 - 191 04/28/2016 [facility] CARDIAC ENZYMES Troponin-I null 0.00 - 0.40 04/28/2016 [facility] CARDIAC ENZYMES BNP 116 pg/mL <=100 pg/mL 04/28/2016 [facility] CARDIAC ENZYMES Troponin-I null 0.00 - 0.40 04/28/2016 [facility] CARDIAC ENZYMES CK MB 2.7 ng/mL 0.5 - 3.6 04/28/2016 [facility] CARDIAC ENZYMES Total CK 242 unit/L 12 - 191 04/28/2016 [facility] CARDIAC ENZYMES CK MB Index 1.1 0.0 - 2.5 04/28/2016 [facility] CHEM PANEL Magnesium Lvl 2.0 mg/dL 1.8 - 2.4 04/28/2016 [facility] CHEM PANEL Lipase Lvl 170 unit/L 73 - 393 04/28/2016 [facility] CHEM PANEL B/C Ratio 18 6 - 25 04/28/2016 [facility] CHEM PANEL ALT 21 unit/L 0 - 65 04/28/2016 [facility] CHEM PANEL AST 19 unit/L 0 - 37 04/28/2016 [facility] CHEM PANEL Alk Phos 38 unit/L 39 - 136 04/28/2016 [facility] CHEM PANEL Bili Total 0.4 mg/dL 0.2 - 1.3 04/28/2016 [facility] CHEM PANEL Total Protein 8.4 g/dL 6.4 - 8.4 04/28/2016 [facility] CHEM PANEL Albumin Lvl 4.1 g/dL 3.5 - 5.0 04/28/2016 [facility] CHEM PANEL Globulin 4.3 g/dL 2.7 - 4.2 04/28/2016 [facility] CHEM PANEL A/G Ratio 1.0 0.7 - 1.6 04/28/2016 [facility] HEMATOLOGY PTT 29.7 s 22.9 - 35.8 04/28/2016 [facility] HEMATOLOGY INR 0.97 0.85 - 1.17 04/28/2016 [facility] HEMATOLOGY PT 13.1 s 12.0 - 14.7 04/28/2016 [facility] HEMATOLOGY Hgb 12.0 g/dL 12.0 - 16.0 04/28/2016 [facility] HEMATOLOGY MCV 89.4 fL 80.0 - 98.0 04/28/2016 [facility] HEMATOLOGY RBC 3.91 M/CMM 4.20 - 5.40 04/28/2016 [facility] HEMATOLOGY WBC 4.3 K/CMM 3.7 - 10.4 04/28/2016 [facility] HEMATOLOGY Hct 34.9 % 36.0 - 48.0 04/28/2016 [facility] HEMATOLOGY MPV 9.0 fL 7.4 - 10.4 04/28/2016 [facility] MCH 30.8 pg 27.0 - 31.0 04/28/2016 [facility] RDW 12.6 % 11.5 - 14.5 04/28/2016 [facility] MCHC 34.5 g/dL 32.0 - 36.0 04/28/2016 [facility] Platelet 194 K/CMM 133 - 450 04/28/2016 [facility] HEMATOLOGY Segs-Bands # 2.4 K/CMM 1.5 - 8.1 04/28/2016 [facility] Monocytes # 0.3 K/CMM 0.0 - 0.8 04/28/2016 [facility] Lymphocytes # 1.5 K/CMM 1.0 - 5.5 04/28/2016 [facility] Basophils 0.9 % 0.0 - 1.0 04/28/2016 [facility] Eosinophils 0.9 % 0.0 - 4.0 04/28/2016 [facility] Segs 56.8 % 45.0 - 75.0 04/28/2016 [facility] Monocytes 7.0 % 2.0 - 12.0 04/28/2016 [facility] Lymphocytes 34.4 % 20.0 - 40.0 04/28/2016 [facility] Chest 1view DX Chest 1view DX Clinical Indication:65 years Female with Chest pain Comparison: Chest x-ray 09/28/2015 FINDINGS: Lines: None. The single frontal chest radiograph shows normal lung volumes. Scarring and possible bronchiectasis of the right upper lobe. No pleural effusion. No pneumothorax. Cardiac silhouette is normal. Pulmonary vasculature is normal. The trachea is midline. There are no clinically significant osseous abnormalities noted. Degenerative changes throughout the thoracic spine. IMPRESSION: No chest radiographic evidence of acute cardiopulmonary disease. Scarring and possible bronchiectasis of the right upper lobe. 04/28/2016 - - Read by: Kings Khan MD Dictated Date/time: 04/28/16 09:42 Electronically Signed by: Kings Khan MD 04/28/16 09:44 FINAL REPORT [facility] CARDIAC ENZYMES Total CK 169 unit/L 12 - 191 09/29/2015 [facility] CARDIAC ENZYMES Troponin-I null 0.00 - 0.40 09/29/2015 [facility] CARDIAC ENZYMES CK MB 1.2 ng/mL 0.5 - 3.6 09/29/2015 [facility] CARDIAC ENZYMES BNP 109 pg/mL <=100 pg/mL 09/29/2015 [facility] CARDIAC ENZYMES CK MB Index 0.7 0.0 - 2.5 09/29/2015 [facility] CHEM PANEL eGFR 92 mL/min/1.73m2 09/29/2015 Result Comment: The eGFR is calculated using the [...] from the National Kidney Disease Education Program (NKDEP) which additionally recommends that when the eGFR is used in patients with extremes of body mass index for purposes of drug dosing, the eGFR should be multiplied by the estimated BMI. [facility] CHEM PANEL A/G Ratio 1.2 0.7 - 1.6 09/29/2015 [facility] CHEM PANEL Globulin 3.8 g/dL 2.0 - 4.0 09/29/2015 [facility] CHEM PANEL Bili Total 0.2 mg/dL 0.2 - 1.3 09/29/2015 [facility] CHEM PANEL AGAP 10.8 meq/L 10.0 - 20.0 09/29/2015 [facility] CHEM PANEL B/C Ratio 15 6 - 25 09/29/2015 [facility] CHEM PANEL Creatinine Lvl 0.66 mg/dL 0.50 - 1.40 09/29/2015 [facility] CHEM PANEL BUN 10 mg/dL 7 - 22 09/29/2015 [facility] CHEM PANEL Glucose Lvl 99 mg/dL 70 - 99 09/29/2015 [facility] CHEM PANEL ALT 23 unit/L 0 - 65 09/29/2015 [facility] CHEM PANEL Albumin Lvl 4.5 g/dL 3.5 - 5.0 09/29/2015 [facility] CHEM PANEL Alk Phos 39 unit/L 39 - 136 09/29/2015 [facility] CHEM PANEL AST 14 unit/L 0 - 37 09/29/2015 [facility] CHEM PANEL Chloride Lvl 95 meq/L 95 - 109 09/29/2015 [facility] CHEM PANEL Potassium Lvl 3.8 meq/L 3.5 - 5.1 09/29/2015 [facility] CHEM PANEL Sodium Lvl 127 meq/L 135 - 145 09/29/2015 [facility] CHEM PANEL Total Protein 8.3 g/dL 6.4 - 8.4 09/29/2015 [facility] CHEM PANEL Calcium Lvl 9.0 mg/dL 8.5 - 10.5 09/29/2015 [facility] CHEM PANEL CO2 25 meq/L 24 - 32 09/29/2015 [facility] HEMATOLOGY D-Dimer 0.29 ug/mL FEU 09/29/2015 [facility] [place] MCHC 33.5 g/dL 32.0 - 36.0 09/29/2015 [facility] [place] MCH 30.1 pg 27.0 - 31.0 09/29/2015 [facility] MCV 89.9 fL 80.0 - 98.0 09/29/2015 [facility] Hct 34.8 % 36.0 - 48.0 09/29/2015 [facility] Hgb 11.7 g/dL 12.0 - 16.0 09/29/2015 [facility] MPV 8.8 fL 7.4 - 10.4 09/29/2015 [facility] Platelet 207 K/CMM 133 - 450 09/29/2015 [facility] RDW 12.8 % 11.5 - 14.5 09/29/2015 [facility] RBC 3.87 M/CMM 4.20 - 5.40 09/29/2015 [facility] WBC 5.1 K/CMM 3.7 - 10.4 09/29/2015 [facility] [place] Segs 59.0 % 45.0 - 75.0 09/29/2015 [facility] Monocytes 7.1 % 2.0 - 12.0 09/29/2015 [facility] Lymphocytes 32.1 % 20.0 - 40.0 09/29/2015 [facility] Segs-Bands # 3.0 K/CMM 1.5 - 8.1 09/29/2015 [facility] HEMATOLOGY Basophils 0.8 % 0.0 - 1.0 09/29/2015 [facility] Eosinophils 1.0 % 0.0 - 4.0 09/29/2015 [facility] Lymphocytes # 1.6 K/CMM 1.0 - 5.5 09/29/2015 [facility] Eosinophils # 0.1 K/CMM 0.0 - 0.5 09/29/2015 [facility] HEMATOLOGY Monocytes # 0.4 K/CMM 0.0 - 0.8 09/29/2015 [facility] Chest 1view DX Chest 1view DX Patient Name: ALFREDO ABAD : 1950; Age: 65 years y/o Female MR: [id number] Study: Chest 1view DX 09/28/2015 6:28 PM SOFTWARE TEST ENGINEER Ordering Physician: Liam Rea MD Comparison: None Clinical Indication: Chest pain; A few scattered interstitial opacities and granulomatous calcifications are noted bilaterally, nonspecific, likely chronic. Cardiac silhouette is not enlarged. Uncoiling of the thoracic aorta is noted. There is no acute consolidation or pleural fluid collection noted. Marginal spurring is noted at the thoracic spine. Degenerative changes at the shoulders bilaterally. IMPRESSION: No acute cardiopulmonary process. SL: [id number] 09/28/2015 - - Read by: Jagdish Tesfaye MD Dictated Date/time: 09/28/15 19:41 Electronically Signed by: Jagdish Tesfaye MD 09/28/15 19:41 FINAL REPORT [facility] URINE AND STOOL UA RBC 2 /HPF 0 - 2 09/17/2015 [facility] URINE AND STOOL UA Nitrite Negative (09/16/15 6:48 PM) Negative 09/17/2015 [facility] URINE AND STOOL UA Bili Negative *NA* (09/16/15 6:48 PM) Negative 09/17/2015 [facility] URINE AND STOOL UA Blood Negative (09/16/15 6:48 PM) Negative 09/17/2015 [facility] URINE AND STOOL UA Ketones Negative mg/dL Negative mg/dL 09/17/2015 [facility] URINE AND STOOL UA WBC null 0 - 5 09/17/2015 [facility] URINE AND STOOL UA Sq Epi Occasional /LPF Few /LPF 09/17/2015 [facility] URINE AND STOOL UA Leuk Est Negative (09/16/15 6:48 PM) Negative 09/17/2015 [facility] URINE AND STOOL UA Color Ltyellow 09/17/2015 [facility] URINE AND STOOL UA Urobilinogen <=1.0 mg/dL 0.1 - 1.0 09/17/2015 [facility] URINE AND STOOL UA pH 7.0 5.0 - 8.0 09/17/2015 [facility] URINE AND STOOL UA Spec Grav 1.006 <=1.030 09/17/2015 [facility] URINE AND STOOL UA Turbidity Clear (09/16/15 6:48 PM) Clear 09/17/2015 [facility] URINE AND STOOL UA Protein Negative mg/dL Negative mg/dL 09/17/2015 [facility] URINE AND STOOL UA Glucose Negative mg/dL Negative mg/dL 09/17/2015 [facility] CHEM PANEL eGFR 85 mL/min/1.73m2 09/17/2015 Result Comment: The eGFR is calculated using the [...] from the National Kidney Disease Education Program (NKDEP) which additionally recommends that when the eGFR is used in patients with extremes of body mass index for purposes of drug dosing, the eGFR should be multiplied by the estimated BMI. [facility] CHEM PANEL Albumin Lvl 3.9 g/dL 3.5 - 5.0 09/17/2015 [facility] CHEM PANEL CO2 27 meq/L 24 - 32 09/17/2015 [facility] CHEM PANEL Calcium Lvl 8.9 mg/dL 8.5 - 10.5 09/17/2015 [facility] CHEM PANEL Total Protein 7.4 g/dL 6.4 - 8.4 09/17/2015 [facility] CHEM PANEL Bili Total 0.3 mg/dL 0.2 - 1.3 09/17/2015 [facility] CHEM PANEL ALT 21 unit/L 0 - 65 09/17/2015 [facility] CHEM PANEL AST 12 unit/L 0 - 37 09/17/2015 [facility] CHEM PANEL Alk Phos 35 unit/L 39 - 136 09/17/2015 [facility] CHEM PANEL Glucose Lvl 150 mg/dL 70 - 99 09/17/2015 [facility] CHEM PANEL Sodium Lvl 136 meq/L 135 - 145 09/17/2015 [facility] CHEM PANEL Potassium Lvl 3.9 meq/L 3.5 - 5.1 09/17/2015 [facility] CHEM PANEL BUN 9 mg/dL 7 - 22 09/17/2015 [facility] CHEM PANEL Chloride Lvl 102 meq/L 95 - 109 09/17/2015 [facility] CHEM PANEL Creatinine Lvl 0.73 mg/dL 0.50 - 1.40 09/17/2015 [facility] CHEM PANEL A/G Ratio 1.1 0.7 - 1.6 09/17/2015 [facility] CHEM PANEL B/C Ratio 12 6 - 25 09/17/2015 [facility] CHEM PANEL Globulin 3.5 g/dL 2.0 - 4.0 09/17/2015 [facility] CHEM PANEL AGAP 10.9 meq/L 10.0 - 20.0 09/17/2015 [facility] HEMATOLOGY Segs-Bands # 3.2 K/CMM 1.5 - 8.1 09/17/2015 [facility] HEMATOLOGY Eosinophils 1.5 % 0.0 - 4.0 09/17/2015 [facility] HEMATOLOGY Monocytes 7.8 % 2.0 - 12.0 09/17/2015 [facility] HEMATOLOGY Basophils 0.8 % 0.0 - 1.0 09/17/2015 [facility] HEMATOLOGY Monocytes # 0.4 K/CMM 0.0 - 0.8 09/17/2015 [facility] HEMATOLOGY Lymphocytes # 1.7 K/CMM 1.0 - 5.5 09/17/2015 [facility] HEMATOLOGY Eosinophils # 0.1 K/CMM 0.0 - 0.5 09/17/2015 [facility] HEMATOLOGY Segs 58.7 % 45.0 - 75.0 09/17/2015 [facility] HEMATOLOGY Lymphocytes 31.2 % 20.0 - 40.0 09/17/2015 [facility] MCHC 33.1 g/dL 32.0 - 36.0 09/17/2015 [facility] HEMATOLOGY MCH 29.9 pg 27.0 - 31.0 09/17/2015 [facility] HEMATOLOGY RDW 13.0 % 11.5 - 14.5 09/17/2015 [facility] HEMATOLOGY Platelet 206 K/CMM 133 - 450 09/17/2015 [facility] HEMATOLOGY MPV 8.1 fL 7.4 - 10.4 09/17/2015 [facility] HEMATOLOGY MCV 90.4 fL 80.0 - 98.0 09/17/2015 [facility] HEMATOLOGY Hgb 10.7 g/dL 12.0 - 16.0 09/17/2015 [facility] HEMATOLOGY Hct 32.5 % 36.0 - 48.0 09/17/2015 [facility] HEMATOLOGY WBC 5.5 K/CMM 3.7 - 10.4 09/17/2015 [facility] HEMATOLOGY RBC 3.59 M/CMM 4.20 - 5.40 09/17/2015 [facility] Brain wo contrast CT Brain wo contrast CT Patient Name: ALFREDO ABAD : 1950; Age: 65 years y/o Female MR: [id number] Study: Brain wo contrast CT 09/16/2015 4:58 PM SOFTWARE TEST ENGINEER Clinical Indication: Headache with Dizziness and Giddiness; left-sided headache for one month. Unable to sleep, pain is now moderate to severe. Comparison: None TECHNIQUE: CT images were obtained from the foramen magnum to the vertex without the use of intravenous contrast on a multidetector CT. Coronal and sagittal reconstructions were obtained. FINDINGS: BRAIN PARENCHYMA: Knight-white matter interfaces are preserved. No mass effect is seen. There are no intra-axial or extra-axial hemorrhage or collection. Mild diffuse cerebral atrophy is seen. VENTRICLES: The ventricles are normal in shape and size. The basilar cisterns are patent. ORBITS, MASTOIDS AND PARANASAL SINUSES: Visualized orbits show no acute pathology. Paranasal sinuses are clear. The mastoid air cells are clear. SKULL: No fracture is identified. If there is further concern for intracranial pathology or acute stroke, MRI of the brain may be performed for complete assessment. IMPRESSION: 1. No acute intracranial abnormality seen. SL: [id number] 09/16/2015 - - Read by: Valerie Pyle MD Dictated Date/time: 09/16/15 17:31 Electronically Signed by: Valerie Pyle MD 09/16/15 17:34 FINAL REPORT [facility] ELECTROLYTES AGAP 9.7 meq/L 10.0 - 20.0 11/22/2014 [facility] ELECTROLYTES eGFR 91 mL/min/1.73m2 11/22/2014 1Result Comment: The eGFR is calculated using [...] from the National Kidney Disease Education Program (NKDEP) which additionally recommends that when the eGFR is used in patients with extremes of body mass index for purposes of drug dosing, the eGFR should be multiplied by the estimated BMI. [facility] ELECTROLYTES Creatinine Lvl 0.7 mg/dL 0.5 - 1.4 11/22/2014 [facility] ELECTROLYTES BUN 13 mg/dL 7 - 22 11/22/2014 [facility] ELECTROLYTES Calcium Lvl 9.3 mg/dL 8.5 - 10.5 11/22/2014 [facility] ELECTROLYTES CO2 29 meq/L 24 - 32 11/22/2014 [facility] ELECTROLYTES Potassium Lvl 4.7 meq/L 3.5 - 5.1 11/22/2014 [facility] ELECTROLYTES Sodium Lvl 138 meq/L 135 - 145 11/22/2014 [facility] ELECTROLYTES Chloride Lvl 104 meq/L 95 - 109 11/22/2014 [facility] ELECTROLYTES Glucose Lvl 103 mg/dL 70 - 99 11/22/2014 2Interpretive Data: Adult reference range values reflect the clinical guidelines of the [place] [employer]. [facility] HEMATOLOGY MPV 8.6 fL 7.4 - 10.4 11/22/2014 [facility] RDW 12.8 % 11.5 - 14.5 11/22/2014 [facility] Platelet 221 K/CMM 133 - 450 11/22/2014 [facility] MCHC 35.5 g/dL 32.0 - 36.0 11/22/2014 [facility] MCH 32.0 pg 27.0 - 31.0 11/22/2014 [facility] MCV 90.2 fL 80.0 - 98.0 11/22/2014 [facility] RBC 3.72 M/CMM 4.20 - 5.40 11/22/2014 [facility] WBC 5.7 K/CMM 3.7 - 10.4 11/22/2014 [facility] Hgb 11.9 g/dL 12.0 - 16.0 11/22/2014 [facility] Hct 33.6 % 36.0 - 48.0 11/22/2014 [facility] Segs 50.6 % 45.0 - 75.0 11/22/2014 [facility] Lymphocytes # 2.2 K/CMM 1.0 - 5.5 11/22/2014 [facility] HEMATOLOGY Segs-Bands # 2.9 K/CMM 1.5 - 8.1 11/22/2014 [facility] HEMATOLOGY Lymphocytes 37.8 % 20.0 - 40.0 11/22/2014 [facility] HEMATOLOGY Monocytes # 0.5 K/CMM 0.0 - 0.8 11/22/2014 [facility] HEMATOLOGY Eosinophils # 0.2 K/CMM 0.0 - 0.5 11/22/2014 [facility] HEMATOLOGY Basophils 0.5 % 0.0 - 1.0 11/22/2014 [facility] HEMATOLOGY Basophils # 0.0 K/CMM 0.0 - 0.2 11/22/2014 [facility] HEMATOLOGY Monocytes 8.4 % 2.0 - 12.0 11/22/2014 [facility] HEMATOLOGY Eosinophils 2.7 % 0.0 - 4.0 11/22/2014 [facility] Vital Signs Vital Sign Value Date Comments Source BMI Calculated 31.81 01/25/[facility] Systolic (mm Hg) 133 01/25/[facility] Diastolic (mm Hg) 81 01/25/2018 [facility] Respitory Rate 14 01/25/2018 [facility] Heart Rate 72 01/25/2018 [facility] Temperature Oral (F) 98.7 F 01/25/2018 [facility] Weight 76.364 01/25/2018 [facility] Height 154.94 cm 01/25/2018 [facility] Temperature Oral (F) 97.9 F 05/15/2016 [facility] Heart Rate 64 05/15/2016 [facility] Respitory Rate 16 05/15/2016 [facility] Systolic (mm Hg) 132 05/15/2016 [facility] Diastolic (mm Hg) 62 05/15/2016 [facility] Respitory Rate 18 05/15/2016 [facility] Heart Rate 89 05/15/2016 [facility] Systolic (mm Hg) 120 05/15/2016 [facility] Diastolic (mm Hg) 74 05/15/2016 [facility] Respitory Rate 18 05/15/2016 [facility] Heart Rate 90 05/15/2016 [facility] Systolic (mm Hg) 158 05/15/2016 [facility] Diastolic (mm Hg) 66 05/15/2016 [facility] Temperature Oral (F) 97.5 F 05/15/2016 [facility] Weight 72.727 05/15/2016 [facility] Height 154.94 cm 05/15/2016 [facility] BMI Calculated 30.29 05/15/2016 [facility] Temperature Oral (F) 97.6 F 05/15/2016 [facility] Respitory Rate 14 05/08/2016 [facility] Heart Rate 71 05/08/2016 [facility] Temperature Oral (F) 97.9 F 05/08/2016 [facility] Systolic (mm Hg) 129 05/08/2016 [facility] Diastolic (mm Hg) 72 05/08/2016 [facility] Systolic (mm Hg) 147 05/08/2016 [facility] Diastolic (mm Hg) 67 05/08/2016 [facility] Temperature Oral (F) 97.9 F 05/08/2016 [facility] Respitory Rate 14 05/08/2016 [facility] Heart Rate 68 05/08/2016 [facility] Respitory Rate 18 05/08/2016 [facility] Temperature Oral (F) 98 F 05/08/2016 [facility] Heart Rate 65 05/08/2016 [facility] Systolic (mm Hg) 142 05/08/2016 [facility] Diastolic (mm Hg) 63 05/08/2016 [facility] Weight 72.727 05/08/2016 [facility] BMI Calculated 30.29 05/08/2016 [facility] Height 154.94 cm 05/08/2016 [facility] Respitory Rate 17 05/04/2016 [facility] Systolic (mm Hg) 118 05/04/2016 [facility] Diastolic (mm Hg) 54 05/04/2016 [facility] Respitory Rate 13 05/04/2016 [facility] Systolic (mm Hg) 138 05/04/2016 [facility] Diastolic (mm Hg) 58 05/04/2016 [facility] Respitory Rate 15 05/04/2016 [facility] Systolic (mm Hg) 160 05/04/2016 [facility] Diastolic (mm Hg) 72 05/04/2016 [facility] Weight 72.727 05/04/2016 [facility] BMI Calculated 29.33 05/04/2016 [facility] Temperature Oral (F) 98.1 F 05/04/2016 [facility] Heart Rate 78 05/04/2016 [facility] Height 157.48 cm 05/04/2016 [facility] Systolic (mm Hg) 153 05/03/2016 [facility] Diastolic (mm Hg) 62 05/03/2016 [facility] Respitory Rate 18 05/03/2016 [facility] Heart Rate 91 05/03/2016 [facility] Temperature Oral (F) 98.0 F 05/03/2016 [facility] Systolic (mm Hg) 158 05/02/2016 [facility] Diastolic (mm Hg) 72 05/02/2016 [facility] Heart Rate 93 05/02/2016 [facility] Respitory Rate 17 05/02/2016 [facility] Temperature Oral (F) 98.0 F 05/02/2016 [facility] Weight 81.818 05/02/2016 [facility] BMI Calculated 30.96 05/02/2016 [facility] Height 162.56 cm 05/02/2016 [facility] Heart Rate 96 05/02/2016 [facility] Respitory Rate 16 05/02/2016 [facility] Systolic (mm Hg) 184 05/02/2016 [facility] Diastolic (mm Hg) 91 05/02/2016 [facility] Systolic (mm Hg) 160 05/02/2016 [facility] Diastolic (mm Hg) 72 05/02/2016 [facility] Heart Rate 72 05/02/2016 [facility] Respitory Rate 18 05/02/2016 [facility] Temperature Oral (F) 98.0 F 05/02/2016 [facility] Respitory Rate 20 05/02/2016 [facility] Heart Rate 76 05/02/2016 [facility] Systolic (mm Hg) 165 05/02/2016 [facility] Diastolic (mm Hg) 77 05/02/2016 [facility] Temperature Oral (F) 98.4 F 05/02/2016 [facility] Weight 72.727 05/02/2016 [facility] Systolic (mm Hg) 187 05/02/2016 [facility] Diastolic (mm Hg) 98 05/02/2016 [facility] Heart Rate 72 05/02/2016 [facility] Respitory Rate 18 05/02/2016 [facility] Heart Rate 72 04/30/2016 [facility] Systolic (mm Hg) 153 04/30/2016 [facility] Diastolic (mm Hg) 96 04/30/2016 [facility] Temperature Oral (F) 97.9 F 04/30/2016 [facility] Heart Rate 71 04/30/2016 [facility] Respitory Rate 18 04/30/2016 [facility] Systolic (mm Hg) 93 04/30/2016 [facility] Diastolic (mm Hg) 51 04/30/2016 [facility] Systolic (mm Hg) 150 04/30/2016 [facility] Diastolic (mm Hg) 81 04/30/2016 [facility] Respitory Rate 18 04/30/2016 [facility] Heart Rate 69 04/30/2016 [facility] Temperature Oral (F) 98.2 F 04/30/2016 [facility] Respitory Rate 18 04/30/2016 [facility] Temperature Oral (F) 98.1 F 04/30/2016 [facility] Weight 75 04/29/2016 [facility] Weight 75 04/28/2016 [facility] Height 154.94 cm 04/28/2016 [facility] Weight 75 04/28/2016 [facility] BMI Calculated 31.24 04/28/2016 [facility] Heart Rate 62 09/29/2015 [facility] Temperature Oral (F) 97.9 F 09/29/2015 [facility] Respitory Rate 18 09/29/2015 [facility] Systolic (mm Hg) 143 09/29/2015 [facility] Diastolic (mm Hg) 76 09/29/2015 [facility] Weight 71.818 09/28/2015 [facility] BMI Calculated 29.92 09/28/2015 [facility] Height 154.94 cm 09/28/2015 [facility] Systolic (mm Hg) 132 09/28/2015 [facility] Diastolic (mm Hg) 73 09/28/2015 [facility] Temperature Oral (F) 97.9 F 09/28/2015 [facility] Heart Rate 68 09/28/2015 [facility] Respitory Rate 17 09/28/2015 [facility] Temperature Oral (F) 98.3 F 09/17/2015 [facility] Systolic (mm Hg) 116 09/17/2015 [facility] Diastolic (mm Hg) 58 09/17/2015 [facility] Respitory Rate 17 09/17/2015 [facility] Heart Rate 61 09/17/2015 [facility] BMI Calculated 29.35 09/16/2015 [facility] Weight 70.455 09/16/2015 [facility] Heart Rate 71 09/16/2015 [facility] Systolic (mm Hg) 155 09/16/2015 [facility] Diastolic (mm Hg) 80 09/16/2015 [facility] Temperature Oral (F) 98.8 F 09/16/2015 [facility] Respitory Rate 18 09/16/2015 [facility] Height 154.94 cm 09/16/2015 [facility] Height 165.1 cm 11/22/2014 [facility] BMI Calculated 26.18 11/22/2014 [facility] Weight 71.364 11/22/2014 [facility] Encounters Location Location Details Encounter Type Encounter Number Reason For Visit Attending Provider ADM Date DC Date Status Source [facility] Outpatient [id number] Fabián Og 11/22/2014 11/23/2014 [facility] [id number] Kika Mcguire 09/16/2015 09/17/2015 [facility] [id number] Liam Rea 09/28/2015 09/29/2015 [facility] Inpatient [id number] Jp Mares 04/28/2016 04/30/2016 [facility] Emergency [id number] Daniel Escamilla 05/02/2016 05/02/2016 [facility] Emergency [id number] Keren Melo 05/02/2016 05/03/2016 [facility] Emergency [id number] Liam Potepalov 05/04/2016 05/04/2016 [facility] Emergency [id number] Adelaide Gouldqi 05/08/2016 05/08/2016 [facility] Emergency [id number] Js Barroweal 05/14/2016 05/15/2016 [facility] [place] [facility] [id number] Glenn Cruz 09/02/2016 09/03/2016 [facility] [place] [facility] [place] [facility] [id number] Glenn Cruz 05/11/2017 05/12/2017 [facility] [place] [facility] [place] [facility] [id number] Glenn Cruz 11/10/2017 11/11/2017 [facility] [place] Outpatient [id number] JENNIE PATTERSON 01/25/2018 Active [facility] Primary Care [facility] Outpatient [id number] Jennie Patterson 01/25/2018 01/26/2018 Medical Group [facility] [place] Outpt Diag Services [id number] Jennie Patterson 01/25/2018 01/26/2018 OPID [place] [facility] Primary Care [facility] Phone Message [phone] 02/04/2018 02/06/2018 Medical Group [facility] Outpatient [facility] Outpt Diag Services [id number] Jennie Patterson 02/06/2018 02/07/2018 OPID [facility] Primary Care [facility] Ambulatory Pre-Reg [id number] Francoise Elaineo 02/07/2018 02/07/2018 Medical Group Outpatient [id number] JENNIE PATTERSON 02/22/2018 Active [facility] Outpatient [id number] JENNIE [place] 03/15/2018 Active [facility] [id number] JENNIE PREM 03/18/2018 Active [facility] [id number] JENNIE [place] 03/18/2018 Active [facility] Outpatient [id number] JENNIE [place] 03/25/2018 Active [facility] [id number] JENNIE [place] 03/25/2018 Active [facility] Out[facility] [id number] JENNIE [place] 03/29/2018 Active [facility] Out[facility] [id number] JENNIE [place] 04/04/2018 Active [facility] [id number] JENNIE [place] 04/07/2018 Active [facility] Outpatient [id number] JENNIE [place] 04/12/2018 Active [facility] [id number] JENNIE [place] 04/13/2018 Active [facility] Outpatient [id number] JENNIE [place] 04/15/2018 Active [facility] [id number] CLARA ROGERS 04/26/2018 Active [facility] Outpatient [id number] ANGY WHITMORE 05/02/2018 Active [facility] Outpatient [id number] JENNIE BANH 05/03/2018 Active [facility] Outpatient [id number] [facility] 05/03/2018 Active [facility] Procedures Procedure Code Date Perfomer Comments Source Cervical cytology screening [id number] 07/19/2017 [facility] Cervical cytology screening [id number] 07/19/2017 [facility] Cervical cytology screening [id number] 07/19/2017 [facility] Arthroscopy of knee with meniscus repair [id number] 07/19/2013 [facility] Arthroscopy of knee with meniscus repair [id number] 07/19/2013 [facility] [place] Arthroscopy of knee with meniscus repair [id number] 07/19/2013 [facility] Colonoscopy [id number] 12/02/2012 [facility] Colonoscopy [id number] 12/02/2012 [facility] [place] Colonoscopy [id number] 12/02/2012 [facility] Arthroscopy of knee with meniscus repair [id number] 07/19/2002 [facility] Arthroscopy of knee with meniscus repair [id number] 07/19/2002 [facility] [place] Arthroscopy of knee with meniscus repair [id number] 07/19/2002 Medical Group Breast operation<sup>1</sup> [id number] 1left [facility] Meniscal repair [id number] [facility] Breast operation<sup>1</sup> [id number] left [facility] Meniscal repair [id number] [facility] Breast operation<sup>1</sup> [id number] left [facility] Meniscal repair [id number] [facility] Breast operation<sup>1</sup> [id number] left [facility] Breast operation<sup>1</sup> [id number] left [facility]
--- OUTSIDE RECORDS SUMMARY | 2018-05-03 14:01 | XMS REPORT | Summary of Care ---
Author Author [facility] Outpatient Imaging [facility] Organization [facility] Outpatient Imaging [facility] Address Unknown Phone Unavailable Encounter CHULA Latif(NEO) [id number] Date(s): 02/06/18 - 02/06/18 [facility] Outpatient Imaging [address] [phone] Discharge Disposition: Home or Self Care Attending Physician: Britney Patterson DO Referring Physician: Britney Patterson DO Vital Signs No data available for this section Problem List Condition Effective Dates Status Health Status Informant Diabetes(Confirmed) Active Body mass index Active (BMI) 31.0-31.9, adult(Confirmed) Hyperlipidemia(Confi Active rmed) Hypertension(Confirm Active ed) Left knee Active pain(Confirmed) Osteoporosis(Confirm Active ed) Medial meniscus Active tear(Confirmed) Unsteady Active gait(Confirmed) Allergies, Adverse Reactions, Alerts Substance Reaction Severity Status codeine1 Active ibuprofen2 Active hydrochlorothiazide Active pravastatin3 Active citalopram Active traMADol4 Active amLODIPine Active 1HTN 2HTN 3HIVES 4HTN Medications No data available for this section Results No data available for this section Immunizations No data available for this section Procedures Procedure Date Related Diagnosis Body Site Status Cervical cytology screening 2017 Completed Arthroscopy of knee with meniscus repair 2013 Completed Colonoscopy 12/02/12 Completed Arthroscopy of knee with meniscus repair 2002 Completed Breast operation1 Completed 1left Social History Social History Type Response Substance Abuse Use: None. Sexual Sexually active: No. Exercise Exercise duration: 120. Exercise frequency: 3-4 times/week. Exercise type: Aerobics, Weight lifting. Employment/School Status: Retired. Alcohol Current, Frequency: 1-2 times per year. Previous treatment: None. Smoking Status Former smoker; Previous treatment: None; Ready to change: No; Concerns about tobacco use in household: No; Exposure to Tobacco Smoke None; Cigarette Smoking Last 365 Days No; Reg Smoking Cessation Counseling No; Stopped at age: 39; Other Tobacco Frequency quit 1989; entered on: 01/25/18 Assessment and Plan No data available for this section
--- OUTSIDE RECORDS SUMMARY | 2018-05-03 14:01 | XMS REPORT | Summary of Care ---
Author Author [facility] Organization [facility] Address Unknown Phone Unavailable Encounter CHULA Latif(NEO) [id number] Date(s): 05/07/16 - 05/08/16 [facility] [address] [place] [address]- Discharge Diagnosis: Hyperglycemia Discharge Diagnosis: Hyponatremia Discharge Disposition: Home or Self Care Attending Physician: Adelaide Armstrong DO Vital Signs 1 2 3 Most recent to oldest [Reference Range]: 154.94 cm (05/07/16 11:11 PM) Height 97.9 DegF (05/08/16 5:49 AM) 97.9 DegF (05/08/16 4:07 AM) 98 DegF (05/08/16 1:32 AM) Temperature Oral [96.4-99.1 DegF] 129/72 mmHg (05/08/16 5:49 AM) 147/67 mmHg *HI* (05/08/16 4:07 AM) 142/63 mmHg *HI* (05/08/16 1:32 AM) Blood Pressure [90-140/60-90 mmHg] 14 BRMIN (05/08/16 5:49 AM) 14 BRMIN (05/08/16 4:07 AM) 18 BRMIN (05/08/16 1:32 AM) Respiratory Rate [14-20 BRMIN] 71 bpm (05/08/16 5:49 AM) 68 bpm (05/08/16 4:07 AM) 65 bpm (05/08/16 1:32 AM) Peripheral Pulse Rate [60-100 bpm] 72.727 kg (05/07/16 11:11 PM) Weight 30.29 m2 (05/07/16 11:11 PM) Body Mass Index Problem List Condition Effective Dates Status Health Status Informant Diabetes(Confirmed) Active Hyperlipidemia(Confi Active rmed) Hypertension(Confirm Active ed) Allergies, Adverse Reactions, Alerts Substance Reaction Severity Status amLODIPine Active citalopram Active codeine Active hydrochlorothiazide Active ibuprofen Active lisinopril1 Active pravastatin2 Active traMADol Active 1HIVES 2HIVES Medications Sodium Chloride 0.9% (Bolus) IV 1,000 mL, 2,000 ml/hr, Infuse Over: 30 minutes, Route: IV, ONCE, Priority: STAT, Dosing Weight 72.727 kg, Start date: 05/08/16 2:10:00 CDT, Duration: 1 doses or times, Stop date: 05/08/16 2:10:00 CDT Start Date: 05/08/16 Stop Date: 05/08/16 Status: Completed Results ELECTROLYTES Most recent to 1 2 oldest [Reference Range]: Sodium Lvl [135-145 128 mEq/L 124 mEq/L mEq/L] *LOW* *LOW* (05/08/16 4:27 AM) (05/08/16 1:31 AM) Potassium Lvl 3.7 mEq/L 3.7 mEq/L [3.5-5.1 mEq/L] (05/08/16 4:27 AM) (05/08/16 1:31 AM) Chloride Lvl [95-109 97 mEq/L 91 mEq/L mEq/L] (05/08/16 4:27 AM) *LOW* (05/08/16 1:31 AM) CO2 [24-32 mEq/L] 25 mEq/L 24 mEq/L (05/08/16 4:27 AM) (05/08/16 1:31 AM) AGAP [10.0-20.0 9.7 mEq/L 12.7 mEq/L mEq/L] *LOW* (05/08/16 1:31 AM) (05/08/16 4:27 AM) CHEM PANEL Most recent to 1 2 oldest [Reference Range]: Creatinine Lvl 0.67 mg/dL 0.73 mg/dL [0.50-1.40 mg/dL] (05/08/16 4:27 AM) (05/08/16 1:31 AM) eGFR 91 mL/min/1.73m2 1 85 mL/min/1.73m2 2 *NA* *NA* (05/08/16 4:27 AM) (05/08/16 1:31 AM) BUN [7-22 mg/dL] 8 mg/dL 9 mg/dL (05/08/16 4:27 AM) (05/08/16 1:31 AM) Glucose Lvl [70-99 125 mg/dL 111 mg/dL mg/dL] *HI* *HI* (05/08/16 4:27 AM) (05/08/16 1:31 AM) Calcium Lvl 8.8 mg/dL 9.0 mg/dL [8.5-10.5 mg/dL] (05/08/16 4:27 AM) (05/08/16 1:31 AM) Ketone Quantitative 0.26 mmol/L [<=0.27 mmol/L] (05/08/16 1:31 AM) 1Result Comment: The eGFR is calculated [...] be mul tiplied by the estimated BMI. 2Result Comment: The eGFR is calculated using the [...] be mul tiplied by the estimated BMI. HEMATOLOGY Most recent to 1 2 oldest [Reference Range]: WBC [3.7-10.4 K/CMM] 6.0 K/CMM (05/08/16 1:31 AM) RBC [4.20-5.40 3.59 M/CMM M/CMM] *LOW* (05/08/16:31 AM) Hgb [12.0-16.0 g/dL] 11.0 g/dL *LOW* (05/08/16:31 AM) Hct [36.0-48.0 %] 32.4 % *LOW* (05/08/16:31 AM) MCV [80.0-98.0 fL] 90.4 fL (05/08/16:31 AM) MCH [27.0-31.0 pg] 30.8 pg (05/08/16:31 AM) MCHC [32.0-36.0 34.0 g/dL g/dL] (05/08/16:31 AM) RDW [11.5-14.5 %] 12.4 % (05/08/16 1:31 AM) Platelet [133-450 207 K/CMM K/CMM] (05/08/16 1:31 AM) MPV [7.4-10.4 fL] 7.9 fL (05/08/16 1:31 AM) Segs [45.0-75.0 %] 67.0 % (05/08/16 1:31 AM) Lymphocytes 23.8 % [20.0-40.0 %] (05/08/16 1:31 AM) Monocytes [2.0-12.0 7.9 % %] (05/08/16 1:31 AM) Eosinophils [0.0-4.0 0.7 % %] (05/08/16 1:31 AM) Basophils [0.0-1.0 0.6 % %] (05/08/16 1:31 AM) Segs-Bands # 4.0 K/CMM [1.5-8.1 K/CMM] (05/08/16 1:31 AM) Lymphocytes # 1.4 K/CMM [1.0-5.5 K/CMM] (05/08/16 1:31 AM) Monocytes # [0.0-0.8 0.5 K/CMM K/CMM] (05/08/16 1:31 AM) Immunizations No data available for this [...]
--- OUTSIDE RECORDS SUMMARY | 2018-05-03 14:01 | XMS REPORT | Summary of Care ---
Author Author [facility] Organization [facility] Address Unknown Phone Unavailable Encounter HQ Salomon(FIN) [id number] Date(s): 02/07/18 - 02/07/18 [facility] [address], [address] [place] [address]- [phone] Attending Physician: Francoise Cuevas MD Vital Signs No data available for this [...] amLODIPine Active 1HTN 2HTN 3HIVES 4HTN Medications Walker 1 ea, MISC, ONCALL, dispense 1 rollator walker, # 1 ea, 0 Refill(s) Start Date: 02/08/18 Status: Ordered Results No data available for this section [...]
--- OUTSIDE RECORDS SUMMARY | 2018-05-03 14:01 | XMS REPORT ---
Author Author [facility] Address Unknown Phone Unavailable Care Team Providers Care Dental Detail Representative Name Role Phone KAINCarlota SPEARS INES Unavailable Unavailable Problems This patient has no known problems. Allergies, Adverse Reactions, Alerts This patient has no known allergies or adverse reactions. Medications This patient has no known medications. Results Test Description Test Time Test Comments Text Results Atomic Results Result Comments CT ABDOMEN/PELVIS W 2018-04-29 16:03:00 [place] [address] Patient Name: ALFREDO ABAD MR #: [id number] : 1950 Age/Sex: 67/F Req #: [id number] Adm Physician: Ordered by: BEBO FERNANDES MECHATRONICS TECHNOLOGIST Report #: [id number] Location: ER Room/Bed: Procedure: [id number] CT/CT ABDOMEN/PELVIS W Exam Date: 04/29/18 Exam Time: 1500 REPORT STATUS: Signed EXAMINATION: CT of the abdomen and pelvis with contrast. TECHNIQUE: Helical CT images of the abdomen and pelvis were performed from the lung bases to the lesser trochanters after the intravenous administration of 150 cc of Isovue 300 and the oral administration of none. Coronal and sagittal reformatted images were obtained. Dose modulation, iterative reconstruction, and/or weight based adjustment of the mA/kV was utilized to reduce the radiation dose to as low as reasonably achievable. COMPARISON: None. CLINICAL HISTORY:Abdominal pain DISCUSSION: ABDOMEN/PELVIS: LOWER THORAX:Unremarkable. HEPATOBILIARY: No focal hepatic lesions. No intra-or extrahepatic biliary ductal dilation. The gallbladder is normal. SPLEEN: No splenomegaly. PANCREAS: No focal masses or ductal dilatation. ADRENALS: No adrenal nodules. KIDNEYS/URETERS: 1 cm cyst exophytic left kidney. No obstruction. No solid masses. PELVIC ORGANS/BLADDER: The bladder is normal. PERITONEUM/RETROPERITONEUM: No free air or fluid. LYMPH NODES: No intra-abdominal, retroperitoneal, pelvic or inguinal lymphadenopathy. VESSELS: Mild vascular calcifications. GI TRACT: No distention or wall thickening. The appendix is normal. BONES AND SOFT TISSUE: Sclerosis at the right sacroiliac joint. Lower lumbar facet arthropathy. Thoracic spine skeletal hyperostosis. No soft tissue abnormalities. IMPRESSION: No acute CT finding. Signed by: Dr. Sarwat Prado M.D. on 04/29/2018 4:08 PM Dictated By: SARWAT PRADO MD [id number] Transcribed By: REYNA on 04/29/18 1605 COPY TO: BEBO FERNANDES NP
--- OUTSIDE RECORDS SUMMARY | 2018-05-03 14:01 | XMS REPORT | Summary of Care ---
Author Author [facility] - [place] Organization [facility] [place] Address Unknown Phone Unavailable Encounter CHULA Latif(NEO) [id number] Date(s): 01/25/18 - 01/25/18 [facility] Outpatient Imaging - [place] [address] [place] [phone] Discharge Disposition: Home or Self Care Attending Physician: Britney Patterson DO Vital Signs No data available for this section Problem List Condition Effective Dates Status Health Status Informant Diabetes(Confirmed) Active Body mass index Active (BMI) 31.0-31.9, adult(Confirmed) Hyperlipidemia(Confi Active rmed) Hypertension(Confirm Active ed) Osteoporosis(Confirm Active ed) Allergies, Adverse Reactions, Alerts Substance [...]
--- OUTSIDE RECORDS SUMMARY | 2018-05-03 14:01 | XMS REPORT | Summary of Care ---
Author Author [facility] Organization [facility] Address Unknown Phone Unavailable Encounter CHULA Latif(NEO) [id number] Date(s): 04/28/16 - 04/30/16 [facility] [address] [place] [address]- [phone] Discharge Disposition: Home or Self Care Attending Physician: Jp Mares MD Admitting Physician: Jp Mares MD Vital Signs 1 2 3 Most recent to oldest [Reference Range]: 154.94 cm (04/28/16 8:16 AM) Height 97.9 DegF (04/30/16 3:00 PM) 98.2 DegF (04/30/16 11:00 AM) 98.1 DegF (04/30/16 7:00 AM) Temperature Oral [96.4-99.1 DegF] 153/96 mmHg *HI* (04/30/16 4:40 PM) 93/51 mmHg (04/30/16 3:00 PM) 150/81 mmHg *HI* (04/30/16 11:00 AM) Blood Pressure [90-140/60-90 mmHg] 18 BRMIN (04/30/16 3:00 PM) 18 BRMIN (04/30/16 11:00 AM) 18 BRMIN (04/30/16 7:00 AM) Respiratory Rate [14-20 BRMIN] 72 bpm (04/30/16 4:40 PM) 71 bpm (04/30/16 3:00 PM) 69 bpm (04/30/16 11:00 AM) Peripheral Pulse Rate [60-100 bpm] 75 kg (04/29/16 4:00 PM) 75 kg (04/28/16 12:32 PM) 75 kg (04/28/16 8:16 AM) Weight 31.24 m2 (04/28/16 8:16 AM) Body Mass Index Problem List Condition Effective Dates Status Health Status Informant Diabetes(Confirmed) Active Hyperlipidemia(Confi Active rmed) Hypertension(Confirm Active ed) Allergies, Adverse Reactions, Alerts Substance Reaction Severity Status amLODIPine Active citalopram Active codeine Active hydrochlorothiazide Active ibuprofen Active lisinopril1 Active pravastatin2 Active traMADol Active 1HIVES 2HIVES Medications aspirin 325 mg, Route: PO, Drug form: ECTAB, ONCE, Dosing Weight 75, kg, Priority: STAT, Start date: 04/28/16 8:40:00 CDT, Stop date: 04/28/16 8:40:00 CDT Start Date: 04/28/16 Stop Date: 04/28/16 Status: Completed glipiZIDE-metformin 2.5 mg-250 mg oral tablet 1 tab, Route: PO, Drug Form: TAB, Dosing Weight 75, kg, Daily, Start date: 04/29 9:00:00 CDT, Duration: 30 day, Stop date: 05/28/16 9:00:00 PRODUCE SPECIALIST Start Date: 04/29/16 Stop Date: 04/29/16 Status: Deleted Glucophage 250 mg, 0.5 tab, Route: PO, Drug form: TAB, Daily, Start date: 04/29/16 9:00:00 CDT, Duration: 30 day, Stop date: 05/28/16 9:00:00 PRODUCE SPECIALIST Notes: (Same as: Glucophage) Take with meal Start Date: 04/29/16 Stop Date: 04/30/16 Status: Discontinued Glucotrol 2.5 mg, 0.5 tab, Route: PO, Drug form: TAB, Daily, Start date: 04/29/16 9:00:00 CDT, Duration: 30 day, Stop date: 05/28/16 9:00:00 PRODUCE SPECIALIST Notes: (Same as: Glucotrol) 30 min before meals. Start Date: 04/29/16 Stop Date: 04/30/16 Status: Discontinued hydrALAZINE 25 mg oral tablet 25 mg=1 tab, PO, Q8H, # 90 tab, 5 Refill(s) Start Date: 04/30/16 Status: Ordered hydrALAZINE 25 mg oral tablet 25 mg, 1 tab, Route: PO, Drug form: TAB, Q6H, Dosing Weight 75, kg, Start date: 04/29/16 18:00:00 CDT, Duration: 30 day, Stop date: 05/29/16 12:00:00 PRODUCE SPECIALIST Notes: (Same as: Apresoline) May interfere w/enteral feedings Take With Food. Start Date: 04/29/16 Stop Date: 04/30/16 Status: Discontinued labetalol 10 mg, Route: IVP, Drug form: INJ, ONCE, Dosing Weight 75, kg, Priority: STAT, S tart date: 04/28/16 8:39:00 CDT, Stop date: 04/28/16 8:39:00 CDT Start Date: 04/28/16 Stop Date: 04/28/16 Status: Completed lisinopril 10 mg, 2 tab, Route: PO, Drug form: TAB, Daily, Dosing Weight 75, kg, Start date : 04/29/16 9:00:00 CDT, Duration: 30 day, Stop date: 05/28/16 9:00:00 PRODUCE SPECIALIST Notes: (Same as: Prinivil, Zestril) Start Date: 04/29/16 Stop Date: 04/30/16 Status: Discontinued Lyrica 100 mg, 2 cap, Route: PO, Drug form: CAP, TID, Dosing Weight 75, kg, Start date: 04/29/16 9:00:00 CDT, Duration: 30 day, Stop date: 05/28/16 21:00:00 PRODUCE SPECIALIST Notes: Same as Lyrica Start Date: 04/29/16 Stop Date: 04/30/16 Status: Discontinued MiraLax 17 gm, 1 pkt, Route: PO, Drug form: PWDR, ONCE, Dosing Weight 75, kg, Start date : 04/30/16 12:28:00 CDT, Duration: 1 doses or times, Stop date: 04/30/16 12:28:0 0 CDT Notes: Dissolve in 8 oz of water or juice.(Same as: Miralax) Start Date: 04/30/16 Stop Date: 04/30/16 Status: Completed morphine Sulfate 2 mg, 1 mL, Route: IVP, Drug form: INJ, Q15Min, Dosing Weight 75, kg, PRN Chest Pain, Start date: 04/28/16 13:12:00 CDT, Duration: 2 doses or times, Stop date: Limited # of times Notes: (Same as:MORPhine Sulfate) Start Date: 04/28/16 Stop Date: 04/30/16 Status: Discontinued NIFEdipine 30 mg oral tablet, extended release 30 mg, Route: PO, Drug form: ERTAB, Daily, Dosing Weight 75, kg, Start date: 9:00:00 CDT, Duration: 30 day, Stop date: 05/29/16 9:00:00 PRODUCE SPECIALIST Start Date: 04/30/16 Stop Date: 04/29/16 Status: Canceled nitroglycerin 0.4 mg, 1 tab, Route: SL, Drug form: TAB, Q5Min, Dosing Weight 75, kg, PRN Chest Pain, Start date: 04/28/16 8:38:00 CDT, Duration: 3 doses or times, Stop date: Limited # of times Notes: (Same as:Nitroquick, Nitrostat)"Do Not Crush" Sublingual tablet Start Date: 04/28/16 Stop Date: 04/28/16 Status: Deleted nitroglycerin SL Tab 0.4 mg, 1 tab, Route: SL, Drug form: TAB, Q5Min, Dosing Weight 75, kg, PRN Chest Pain, Start date: 04/28/16 13:12:00 CDT, Duration: 3 doses or times, Stop date: Limited # of times Notes: (Same as:Nitroquick, Nitrostat)"Do Not Crush" Sublingual tablet Start Date: 04/28/16 Stop Date: 04/30/16 Status: Discontinued Pravachol 20 mg, 1 tab, Route: PO, Drug form: TAB, Daily, Dosing Weight 75, kg, Start date : 04/29/16 9:00:00 CDT, Duration: 30 day, Stop date: 05/28/16 9:00:00 PRODUCE SPECIALIST Notes: (Same as: Pravachol) Start Date: 04/29/16 Stop Date: 04/30/16 Status: Discontinued Saline Flush 0.9% 10 mL, Route: IVP, Drug Form: INJ, Dosing Weight 75, kg, PRN, PRN Line Flush, St art date: 04/28/16 8:38:00 CDT, Duration: 30 day, Stop date: 05/28/16 7:37:00 CS T Notes: (Same as: BD Posiflush) Start Date: 04/28/16 Stop Date: 04/28/16 Status: Voided With Results Saline Flush 0.9% 10 ml, Route: IVP, Drug Form: INJ, Dosing Weight 75, kg, PRN, PRN Line Flush, St art date: 04/28/16 13:12:00 CDT, Duration: 30 day, Stop date: 05/28/16 12:11:00 PRODUCE SPECIALIST Notes: (Same as: BD Posiflush) Start Date: 04/28/16 Stop Date: 04/30/16 Status: Discontinued Saline Flush 0.9% 10 ml, Route: IVP, Drug Form: INJ, Dosing Weight 75, kg, Q12H, Start date: 04/28 21:00:00 CDT, Duration: 30 day, Stop date: 05/28/16 9:00:00 PRODUCE SPECIALIST Notes: (Same as: BD Posiflush) Start Date: 04/28/16 Stop Date: 04/30/16 Status: Discontinued sodium chloride 0.9% 1000 ml INJ 1,000 mL 1,000 mL, Rate: 75 ml/hr, Infuse over: 13.3 hr, Route: IV, Dosing Weight 75 kg, Total Volume: 1,000, Start date: 04/29/16 0:06:00 CDT, Duration: 30 day, Stop da te: 05/29/16 0:05:00 PRODUCE SPECIALIST Start Date: 04/29/16 Stop Date: 04/30/16 Status: Discontinued temazepam 30 mg, 2 cap, Route: PO, Drug form: CAP, Bedtime, Dosing Weight 75, kg, PRN Slee p, Start date: 04/29/16 0:10:00 CDT, Duration: 30 day, Stop date: 05/29/16 0:09: 00 PRODUCE SPECIALIST Notes: (Same As: Restoril) Start Date: 04/29/16 Stop Date: 04/30/16 Status: Discontinued Tylenol 650 mg, 2 tab, Route: PO, Drug form: TAB, Q4H, Dosing Weight 75, kg, PRN Pain Sc ore 1-3, Start date: 04/29/16 20:11:00 CDT, Duration: 30 day, Stop date: 6 20:10:00 PRODUCE SPECIALIST Notes: Do not exceed 4 gm/day. (Same as: Tylenol) Start Date: 04/29/16 Stop Date: 04/30/16 Status: Discontinued Results ELECTROLYTES 1 2 3 Most recent to oldest [Reference Range]: 131 mEq/L *LOW* (04/30/16 4:45 AM) 127 mEq/L *LOW* (04/29/16 5:19 PM) 129 mEq/L *LOW* (04/29/16 4:37 AM) Sodium Lvl [135-145 mEq/L] 4.1 mEq/L (04/30/16 4:45 AM) 4.2 mEq/L (04/29/16 5:19 PM) 4.2 mEq/L (04/29/16 4:37 AM) Potassium Lvl [3.5-5.1 mEq/L] 98 mEq/L (04/30/16 4:45 AM) 95 mEq/L (04/29/16 5:19 PM) 97 mEq/L (04/29/16 4:37 AM) Chloride Lvl [95-109 mEq/L] 23 mEq/L *LOW* (04/30/16 4:45 AM) 24 mEq/L (04/29/16 5:19 PM) 26 mEq/L (04/29/16 4:37 AM) CO2 [24-32 mEq/L] 14.1 mEq/L (04/30/16 4:45 AM) 12.2 mEq/L (04/29/16 5:19 PM) 10.2 mEq/L (04/29/16 4:37 AM) AGAP [10.0-20.0 mEq/L] CHEM PANEL 1 2 3 Most recent to oldest [Reference Range]: 0.70 mg/dL (04/30/16 4:45 AM) 0.87 mg/dL (04/29/16 5:19 PM) 0.69 mg/dL (04/29/16 4:37 AM) Creatinine Lvl [0.50-1.40 mg/dL] 90 mL/min/1.73m2 1 *NA* (04/30/16 4:45 AM) 69 mL/min/1.73m2 2 *NA* (04/29/16 5:19 PM) 90 mL/min/1.73m2 3 *NA* (04/29/16 4:37 AM) eGFR 13 mg/dL (04/30/16 4:45 AM) 13 mg/dL (04/29/16 5:19 PM) 12 mg/dL (04/29/16 4:37 AM) BUN [7-22 mg/dL] 18 (04/28/16 10:02 AM) B/C Ratio [6-25] 112 mg/dL *HI* (04/30/16 4:45 AM) 179 mg/dL *HI* (04/29/16 5:19 PM) 111 mg/dL *HI* (04/29/16 4:37 AM) Glucose Lvl [70-99 mg/dL] 8.4 g/dL (04/28/16 10:02 AM) Total Protein [6.4-8.4 g/dL] 4.1 g/dL (04/28/16 10:02 AM) Albumin Lvl [3.5-5.0 g/dL] 4.3 g/dL *HI* (04/28/16 10:02 AM) Globulin [2.7-4.2 g/dL] 1.0 (04/28/16 10:02 AM) A/G Ratio [0.7-1.6] 8.6 mg/dL (04/30/16 4:45 AM) 8.9 mg/dL (04/29/16 5:19 PM) 8.8 mg/dL (04/29/16 4:37 AM) Calcium Lvl [8.5-10.5 mg/dL] 2.0 mg/dL (04/28/16 10:02 AM) Magnesium Lvl [1.8-2.4 mg/dL] 21 unit/L (04/28/16 10:02 AM) ALT [0-65 unit/L] 19 unit/L (04/28/16 10:02 AM) AST [0-37 unit/L] 38 unit/L *LOW* (04/28/16 10:02 AM) Alk Phos [39-136 unit/L] 0.4 mg/dL (04/28/16 10:02 AM) Bili Total [0.2-1.3 mg/dL] 170 unit/L (04/28/16 10:02 AM) Lipase Lvl [73-393 unit/L] 1Result Comment: The eGFR is calculated using [...] be mul tiplied by the estimated BMI. 3Result Comment: The eGFR is calculated using the [...] tiplied by the estimated BMI. CARDIAC ENZYMES 1 2 3 Most recent to oldest [Reference Range]: 182 unit/L (04/28/16 8:35 PM) 195 unit/L *HI* (04/28/16 4:25 PM) 242 unit/L *HI* (04/28/16 10:02 AM) Total CK [12-191 unit/L] 1.4 ng/mL (04/28/16 8:35 PM) 1.7 ng/mL (04/28/16 4:25 PM) 2.7 ng/mL (04/28/16 10:02 AM) CK MB [0.5-3.6 ng/mL] 0.8 (04/28/16 8:35 PM) 0.9 (04/28/16 4:25 PM) 1.1 (04/28/16 10:02 AM) CK MB Index [0.0-2.5] <0.02 ng/mL (04/28/16 8:35 PM) <0.02 ng/mL (04/28/16 4:25 PM) <0.02 ng/mL (04/28/16 10:02 AM) Troponin-I [0.00-0.40 ng/mL] 116 pg/mL *HI* (04/28/16 10:02 AM) BNP [<=100 pg/mL] URINE CHEM 1 2 3 Most recent to oldest [Reference Range]: 56 mEq/L *NA* (04/29/16 4:51 PM) U Sodium 62 mEq/L *NA* (04/29/16 4:51 PM) U Chloride 383 mOsm/kg (04/29/16 4:51 PM) U Osmolality [300-800 mOsm/kg] HEMATOLOGY 1 2 3 Most recent to oldest [Reference Range]: 4.3 K/CMM (04/28/16 10:02 AM) WBC [3.7-10.4 K/CMM] 3.91 M/CMM *LOW* (04/28/16 10:02 AM) RBC [4.20-5.40 M/CMM] 12.0 g/dL (04/28/16 10:02 AM) Hgb [12.0-16.0 g/dL] 34.9 % *LOW* (04/28/16 10:02 AM) Hct [36.0-48.0 %] 89.4 fL (04/28/16 10:02 AM) MCV [80.0-98.0 fL] 30.8 pg (04/28/16 10:02 AM) MCH [27.0-31.0 pg] 34.5 g/dL (04/28/16 10:02 AM) MCHC [32.0-36.0 g/dL] 12.6 % (04/28/16 10:02 AM) RDW [11.5-14.5 %] 194 K/CMM (04/28/16 10:02 AM) Platelet [133-450 K/CMM] 9.0 fL (04/28/16 10:02 AM) MPV [7.4-10.4 fL] 56.8 % (04/28/16 10:02 AM) Segs [45.0-75.0 %] 34.4 % (04/28/16 10:02 AM) Lymphocytes [20.0-40.0 %] 7.0 % (04/28/16 10:02 AM) Monocytes [2.0-12.0 %] 0.9 % (04/28/16 10:02 AM) Eosinophils [0.0-4.0 %] 0.9 % (04/28/16 10: AM) Basophils [0.0-1.0 %] 2.4 K/CMM (04/28/16 10:02 AM) Segs-Bands # [1.5-8.1 K/CMM] 1.5 K/CMM (04/28/16 10:02 AM) Lymphocytes # [1.0-5.5 K/CMM] 0.3 K/CMM (04/28/16 10:02 AM) Monocytes # [0.0-0.8 K/CMM] 13.1 seconds (04/28/16 10:02 AM) PT [12.0-14.7 seconds] 0.97 (04/28/16 10:02 AM) INR [0.85-1.17] 29.7 seconds (04/28/16 10:02 AM) PTT [22.9-35.8 seconds] Immunizations No data available for this section Procedures Procedure Date Related Diagnosis Body Site Breast operation1 Meniscal repair 1left Social History Social History Type Response Smoking Status Never smoker; Previous treatment: None; Ready to change: No; Concerns about tobacco use in household: No; Exposure to Tobacco Smoke None; Cigarette Smoking Last 365 Days No; Reg Smoking Cessation Counseling No Assessment and Plan Extracted from: Title: Clinical Document Author: Sanam Rai MD Date: 04/30/16 Cardiology Progress Note Subjective: No chest pain or shortness of breath. Wants to go home. Objective: Rxdcvyqmxui31.9 (16:22) Systolic Blood Bvcgocho888 (16:40) Diastolic Blood Euliebio64 (16:40) Pulse72 (16:40) GmI817 (16:22) Respiratory Rate18 (16:22) General: Awake and alert. No acute distress. Lungs: Clear to auscultation bilaterally. No wheezes/crackles. Cardiovascular: Normal rate. Regular rhythm. No murmur. Normal S1 and S2. Abdomen: Soft, non-tender, non-distended. Extremities: No edema. Labs: Sodium Vac420 L Potassium Lvl4.1 Chloride Lvl98 CO223 L BUN13 Creatinine Lvl0.70 Tele: Normal sinus rhythm Impression: 1. Atypical chest pain 2. Hyponatremia 3. Diabetes mellitus 4. Hypertension, not at goal 5. Hyperlipidemia Plan: 1. Treadmill nuclear stress test negative for ischemia. 2. Patient refused IVF. Hyponatremia slightly better today and patient wishes to go home. As patient is asymptomatic, will allow patient to go home on fluid restriction and follow-up with Dr. Mares in one week with labs. 3. Blood pressure better with Hydralazine. Further titration as outpatient. 4. Risk factor modification with statin. Sanam Rai MD Extracted from: Title: Clinical Document Author: Sanam Rai MD Date: 04/30/16 Discharge Summary Admission Diagnosis: 1. Chest pain Discharge Diagnosis 1. Chest pain 2. Hyponatremia Procedures: 1. Treadmill nuclear stress test History of Present Illness and Hospital Course: 65 year-old woman with hypertension, hyperlipidemia, diabetes mellitus and recurrent chest pain presents with complaints of poorly controlled blood pressure and chest pain. She had been non-compliant with her home Bystolic. She was therefore started on Hydralazine with some improvement in her blood pressure. The patient underwent treadmill nuclear stress test for evaluation of chest pain which was n egative for ischemia. However, she had been found to have hyponatermia on admission and discharge was postponed until hyponatremia improved. Although she remained hyponatremic, given the patient was asymptomatic and insistent on going on home, decision was made to discharge her with close follow-up. The patient was advised to restrict her fluid intake and will follow-up with labs in one week. Medications: Please see medication reconciliation Follow-up: 1. Dr. Mares in one week with labs prior
--- OUTSIDE RECORDS SUMMARY | 2018-05-03 14:01 | XMS REPORT | Summary of Care ---
Author Author [facility] Organization [facility] Address Unknown Phone Unavailable Encounter HQ Fransisca_sridhar(FIN) [id number] Date(s): 09/02/16 - 09/02/16 [facility] [address] [address] [phone] Discharge Disposition: Home or Self Care Attending Physician: Glenn Cruz MD Vital Signs No data available for this section Problem List Condition Effective Dates Status Health Status Informant Diabetes(Confirmed) Active Hyperlipidemia(Confi Active rmed) Hypertension(Confirm Active ed) Allergies, Adverse Reactions, Alerts Substance Reaction Severity Status amLODIPine Active citalopram Active codeine Active hydrochlorothiazide Active ibuprofen Active lisinopril1 Active pravastatin2 Active traMADol Active 1HIVES 2HIVES Medications No data available for this section Results No data available for this section Immunizations No data available for this section Procedures Procedure Date Related Diagnosis Body Site Breast operation1 Meniscal repair 1left Social History Social History Type Response Substance Abuse Use: None. Alcohol Never, Previous treatment: None. Smoking Status Never smoker; Exposure to Tobacco Smoke None; Cigarette Smoking Last 365 Days No; Reg Smoking Cessation Counseling Yes Assessment and Plan No data available for this section
--- OUTSIDE RECORDS SUMMARY | 2018-05-03 14:01 | XMS REPORT | Summary of Care ---
Author Author [facility] Organization [facility] Address Unknown Phone Unavailable Encounter CHULA Latif(FIN) [id number] Date(s): 02/04/18 - 02/05/18 [facility] [address] [place] [address]- [phone] Vital Signs No data available for this section Problem List Condition Effective Dates Status Health Status Informant Diabetes(Confirmed) Active Body mass index Active (BMI) 31.0-31.9, adult(Confirmed) Hyperlipidemia(Confi Active rmed) Hypertension(Confirm Active ed) Left knee Active pain(Confirmed) Osteoporosis(Confirm Active ed) Medial meniscus Active tear(Confirmed) Allergies, Adverse Reactions, Alerts Substance Reaction Severity Status codeine1 Active ibuprofen2 Active hydrochlorothiazide Active pravastatin3 Active citalopram Active traMADol4 Active amLODIPine Active 1HTN 2HTN 3HIVES 4HTN Medications naproxen 500 mg oral tablet 500 mg=1 tab, PO, BID, X 14 day, # 28 tab, 0 Refill(s), Pharmacy: [id number] Start Date: 02/04/18 Stop Date: 02/18/18 Status: Ordered Results No data available for [...]
--- OUTSIDE RECORDS SUMMARY | 2018-05-03 14:01 | XMS REPORT | Summary of Care ---
Author Author [facility] Organization [facility] Address Unknown Phone Unavailable Encounter CHULA Latif(NEO) [id number] Date(s): 01/25/18 - 01/25/18 [facility] [address], [address] [place] [address]- [phone] Discharge Disposition: Home or Self Care Attending Physician: Britney Patterson DO Vital Signs Most recent to 1 oldest [Reference Range]: Height 154.94 cm (01/25/18 10:11 AM) Temperature Oral 98.7 DegF [96.4-99.1 DegF] (01/25/18 10:11 AM) Blood Pressure 133/81 mmHg [90-140/60-90 mmHg] (01/25/18 10:11 AM) Respiratory Rate 14 BRMIN [14-20 BRMIN] (01/25/18 10:11 AM) Peripheral Pulse 72 bpm Rate [60-100 bpm] (01/25/18 10:11 AM) Weight 76.364 kg (01/25/18 10:11 AM) Body Mass Index 31.81 m2 (01/25/18 10:11 AM) Problem List Condition Effective Dates Status Health Status Informant Diabetes(Confirmed) Active Body mass index Active (BMI) 31.0-31.9, adult(Confirmed) Hyperlipidemia(Confi Active rmed) Hypertension(Confirm Active ed) Osteoporosis(Confirm Active ed) Allergies, Adverse Reactions, Alerts Substance Reaction Severity Status codeine1 Active ibuprofen2 Active hydrochlorothiazide Active pravastatin3 Active citalopram Active traMADol4 Active amLODIPine Active 1HTN 2HTN 3HIVES 4HTN Medications acetaminophen 650 mg, 0 Refill(s) Start Date: 01/25/18 Status: Ordered aspirin 81 mg tablet, enteric coated 81 mg=1 tab, PO, Daily, # 90 tab, 3 Refill(s) Start Date: 01/25/18 Status: Ordered cetirizine 10 mg, Daily, 0 Refill(s) Start Date: 01/25/18 Status: Ordered glimepiride 2 mg oral tablet 2 mg=1 tab, PO, Breakfast, # 90 tab, 1 Refill(s), Pharmacy: [facility] [id number] Start Date: 01/25/18 Stop Date: 07/24/18 Status: Ordered glimepiride 2 mg oral tablet 2 mg=1 tab, PO, Breakfast, # 30 tab, 0 Refill(s) Start Date: 01/25/18 Stop Date: 01/25/18 Status: Discontinued lisinopril 10 mg oral tablet 10 mg=1 tab, PO, Daily, # 30 tab, 0 Refill(s) Start Date: 01/25/18 Stop Date: 01/25/18 Status: Discontinued lisinopril 10 mg oral tablet 10 mg=1 tab, PO, BID, # 180 tab, 1 Refill(s), Pharmacy: [id number] Start Date: 01/25/18 Stop Date: 07/24/18 Status: Ordered meloxicam 7.5 mg oral tablet 7.5 mg=1 tab, PO, Daily, # 30 tab, 1 Refill(s), Pharmacy: [id number] Start Date: 01/25/18 Status: Ordered mometasone nasal 50 mcg/inh spray 2 spray, NASAL, Daily, # 1 btl, 0 Refill(s) Start Date: 01/25/18 Status: Ordered tizanidine 2 mg oral tablet 2 mg=1 tab, PO, Bedtime, PRN for muscle spasms, # 30 tab, 1 Refill(s), Pharmacy: [id number] Start Date: 01/25/18 Stop Date: 03/26/18 Status: Ordered Results No data available for [...]
--- OUTSIDE RECORDS SUMMARY | 2018-05-03 14:01 | XMS REPORT | Summary of Care ---
Author Author [facility] Organization [facility] Address Unknown Phone Unavailable Encounter [facility] Fransisca_sridhar(FIN) [id number] Date(s): 11/10/17 - 11/10/17 [facility] [place] [address] [place] [address] [phone] Encounter Diagnosis Encounter for screening mammogram for malignant neoplasm of breast (Final) - Discharge Disposition: Home or Self Care Attending Physician: Glenn Cruz MD Vital Signs No data available for this section Problem List Condition Effective Dates Status Health Status Informant Diabetes(Confirmed) Active Hyperlipidemia(Confi Active rmed) Hypertension(Confirm Active ed) Allergies, Adverse Reactions, Alerts Substance Reaction Severity Status codeine Active ibuprofen Active hydrochlorothiazide Active pravastatin1 Active lisinopril2 Active citalopram Active traMADol Active amLODIPine Active 1HIVES 2HIVES Medications No data available for this section Results No data available for this section Immunizations No data available for this section Procedures Procedure Date Related Diagnosis Body Site Status Breast operation1 Completed Meniscal repair Completed 1left Social History Social History Type Response Substance Abuse Use: None. Alcohol Never, Previous treatment: None. Smoking Status Never smoker; Exposure to Tobacco Smoke None; Cigarette Smoking Last 365 Days No; Reg Smoking Cessation Counseling Yes entered on: 05/14/16 Assessment and Plan No data available for this section
--- OUTSIDE RECORDS SUMMARY | 2018-05-03 14:01 | XMS REPORT | Summary of Care ---
Author Author [facility] Organization [facility] Address Unknown Phone Unavailable Encounter CHULA Latif(NEO) [id number] Date(s): 05/03/16 - 05/04/16 [facility] [address] [place] [address]- Discharge Diagnosis: Anxiety reaction Discharge Diagnosis: Uncontrolled hypertension Discharge Disposition: Home or Self Care Attending Physician: Liam Rea MD Vital Signs 1 2 3 Most recent to oldest [Reference Range]: 157.48 cm (05/03/16 11:16 PM) Height 98.1 DegF (05/03/16 11:16 PM) Temperature Oral [96.4-99.1 DegF] 118/54 mmHg (05/04/16 5:00 AM) 138/58 mmHg (05/04/16 3:00 AM) 160/72 mmHg *HI* (05/04/16 1:39 AM) Blood Pressure [90-140/60-90 mmHg] 17 BRMIN (05/04/16 5:00 AM) 13 BRMIN *LOW* (05/04/16 3:00 AM) 15 BRMIN (05/04/16 1:39 AM) Respiratory Rate [14-20 BRMIN] 78 bpm (05/03/16 11:16 PM) Peripheral Pulse Rate [60-100 bpm] 72.727 kg (05/03/16 11:16 PM) Weight 29.33 m2 (05/03/16 11:16 PM) Body Mass Index Problem List Condition Effective Dates Status Health Status Informant Diabetes(Confirmed) Active Hyperlipidemia(Confi Active rmed) Hypertension(Confirm Active ed) Allergies, Adverse Reactions, Alerts Substance Reaction Severity Status amLODIPine Active citalopram Active codeine Active hydrochlorothiazide Active ibuprofen Active lisinopril1 Active pravastatin2 Active traMADol Active 1HIVES 2HIVES Medications aspirin 324 mg, 4 tab, Route: PO, Drug form: [place], ONCE, Dosing Weight 72.727, kg, Pr iority: STAT, Start date: 05/04/16 1:02:00 CDT, Stop date: 05/04/16 1:02:00 CDT Notes: Take with food. Start Date: 05/04/16 Stop Date: 05/04/16 Status: Completed cloNIDine 0.1 mg oral tablet 0.1 mg, 1 tab, Route: PO, Drug form: TAB, ONCE, Dosing Weight 72.727, kg, Priori ty: STAT, Start date: 05/04/16 1:02:00 CDT, Stop date: 05/04/16 1:02:00 CDT Notes: (Same As: Amira) Start Date: 05/04/16 Stop Date: 05/04/16 Status: Completed cloNIDine 0.1 mg oral tablet 0.1 mg=1 tab, PO, Q8H, PRN Hypertension, Systolic BP > 160, # 90 tab, 3 Refill(s) Start Date: 05/04/16 Status: Ordered morphine Sulfate 2 mg, Route: IVP, ONCE, Dosing Weight 72.727, kg, Priority: STAT, Start date: 1:02:00 CDT, Stop date: 05/04/16 1:02:00 CDT Start Date: 05/04/16 Stop Date: 05/04/16 Status: Completed ondansetron 4 mg, 2 mL, Route: IVP, Drug form: INJ, ONCE, Dosing Weight 72.727, kg, Priority : STAT, Start date: 05/04/16 1:02:00 CDT, Stop date: 05/04/16 1:02:00 CDT Notes: (Same as: Latrell) MEDICATION WASTE Product Size: 4 mgProduct Was analisa: ___ mg Start Date: 05/04/16 Stop Date: 05/04/16 Status: Completed Saline Flush 0.9% 10 mL, Route: IVP, Drug Form: INJ, Dosing Weight 72.727, kg, PRN, PRN Line Flush , Start date: 05/04/16 1:02:00 CDT, Duration: 30 day, Stop date: 06/03/16 0:01:0 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 (Same as: Tylenol) Start Date: 05/04/16 Stop Date: 05/04/16 Status: Completed Results ELECTROLYTES Most recent to 1 oldest [Reference Range]: Sodium Lvl [135-145 126 mEq/L mEq/L] *LOW* (05/04/16 1:19 AM) Potassium Lvl 4.1 mEq/L [3.5-5.1 mEq/L] (05/04/16 1:19 AM) Chloride Lvl [95-109 95 mEq/L mEq/L] (05/04/16 1:19 AM) CO2 [24-32 mEq/L] 23 mEq/L *LOW* (05/04/16 1:19 AM) AGAP [10.0-20.0 12.1 mEq/L mEq/L] (05/04/16 1:19 AM) CHEM PANEL Most recent to 1 oldest [Reference Range]: Creatinine Lvl 0.82 mg/dL [0.50-1.40 mg/dL] (05/04/16 1:19 AM) eGFR 74 mL/min/1.73m2 1 *NA* (05/04/16 1:19 AM) BUN [7-22 mg/dL] 9 mg/dL (05/04/16 1:19 AM) B/C Ratio [6-25] 11 (05/04/16 1:19 AM) Glucose Lvl [70-99 132 mg/dL mg/dL] *HI* (05/04/16 1:19 AM) Total Protein 7.8 g/dL [6.4-8.4 g/dL] (05/04/16 1:19 AM) Albumin Lvl [3.5-5.0 3.9 g/dL g/dL] (05/04/16 1:19 AM) Globulin [2.7-4.2 3.9 g/dL g/dL] (05/04/16 1:19 AM) A/G Ratio [0.7-1.6] 1.0 (05/04/16 1:19 AM) Calcium Lvl 8.6 mg/dL [8.5-10.5 mg/dL] (05/04/16 1:19 AM) ALT [0-65 unit/L] 19 unit/L (05/04/16 1:19 AM) AST [0-37 unit/L] 25 unit/L (05/04/16 1:19 AM) Alk Phos [39-136 37 unit/L unit/L] *LOW* (05/04/16 1:19 AM) Bili Total [0.2-1.3 0.3 mg/dL mg/dL] (05/04/16 1:19 AM) 1Result Comment: The eGFR is calculated [...] 1 oldest [Reference Range]: Total CK [12-191 242 unit/L unit/L] *HI* (05/04/16 1:19 AM) CK MB [0.5-3.6 2.6 ng/mL ng/mL] (05/04/16 1:19 AM) CK MB Index 1.1 [0.0-2.5] (05/04/16 1:19 AM) Troponin-I <0.02 ng/mL [0.00-0.40 ng/mL] (05/04/16 1:19 AM) HEMATOLOGY Most recent to 1 oldest [Reference Range]: WBC [3.7-10.4 K/CMM] 6.7 K/CMM (05/04/16 1:19 AM) RBC [4.20-5.40 3.84 M/CMM M/CMM] *LOW* (05/04/16 1:19 AM) Hgb [12.0-16.0 g/dL] 11.6 g/dL *LOW* (05/04/16: AM) Hct [36.0-48.0 %] 34.3 % *LOW* (05/04/16 1: AM) MCV [80.0-98.0 fL] 89.4 fL (05/04/16 1: AM) MCH [27.0-31.0 pg] 30.3 pg (05/04/16: AM) MCHC [32.0-36.0 33.9 g/dL g/dL] (05/04/16: AM) RDW [11.5-14.5 %] 12.4 % (05/04/16 1:19 AM) Platelet [133-450 213 K/CMM K/CMM] (05/04/16 1:19 AM) MPV [7.4-10.4 fL] 7.6 fL (05/04/16 1:19 AM) Segs [45.0-75.0 %] 57.6 % (05/04/16 1:19 AM) Lymphocytes 34.5 % [20.0-40.0 %] (05/04/16 1: AM) Monocytes [2.0-12.0 6.6 % %] (05/04/16 1:19 AM) Eosinophils [0.0-4.0 0.5 % %] (05/04/16 1:19 AM) Basophils [0.0-1.0 0.8 % %] (05/04/16 1: AM) Segs-Bands # 3.9 K/CMM [1.5-8.1 K/CMM] (05/04/16 1:19 AM) Lymphocytes # 2.3 K/CMM [1.0-5.5 K/CMM] (05/04/16 1:19 AM) Monocytes # [0.0-0.8 0.4 K/CMM K/CMM] (05/04/16 1:19 AM) Basophils # [0.0-0.2 0.1 K/CMM K/CMM] (05/04/16 1:19 AM) Immunizations No data available for this [...]
--- OUTSIDE RECORDS SUMMARY | 2018-05-03 14:01 | XMS REPORT | Summary of Care ---
Author Author [facility] Organization [facility] Address Unknown Phone Unavailable Encounter CHULA Latif(NEO) [id number] Date(s): 05/02/16 - 05/02/16 [facility] [address] [place] [address]- Discharge Disposition: Home or Self Care Attending Physician: Keren Melo MD Vital Signs 1 2 3 Most recent to oldest [Reference Range]: 162.56 cm (05/02/16 5:35 PM) Height 98.0 DegF (05/02/16 9:00 PM) 98.0 DegF (05/02/16 5:35 PM) Temperature Oral [96.4-99.1 DegF] 153/62 mmHg *HI* (05/02/16 9:00 PM) 158/72 mmHg *HI* (05/02/16 6:30 PM) 184/91 mmHg *HI* (05/02/16 5:35 PM) Blood Pressure [90-140/60-90 mmHg] 18 BRMIN (05/02/16 9:00 PM) 17 BRMIN (05/02/16 6:30 PM) 16 BRMIN (05/02/16 5:35 PM) Respiratory Rate [14-20 BRMIN] 91 bpm (05/02/16 9:00 PM) 93 bpm (05/02/16 6:30 PM) 96 bpm (05/02/16 5:35 PM) Peripheral Pulse Rate [60-100 bpm] 81.818 kg (05/02/16 5:35 PM) Weight 30.96 m2 (05/02/16 5:35 PM) Body Mass Index Problem List Condition Effective Dates Status Health Status Informant Diabetes(Confirmed) Active Hyperlipidemia(Confi Active rmed) Hypertension(Confirm Active ed) Allergies, Adverse Reactions, Alerts Substance Reaction Severity Status amLODIPine Active citalopram Active codeine Active hydrochlorothiazide Active ibuprofen Active lisinopril1 Active pravastatin2 Active traMADol Active 1HIVES 2HIVES Medications acetaminophen 650 mg, Route: PO, Drug form: TAB, ONCE, Dosing Weight 81.818, kg, Priority: STA T, Start date: 05/02/16 19:46:00 CDT, Stop date: 05/02/16 19:46:00 CDT Start Date: 05/02/16 Stop Date: 05/02/16 Status: Completed Saline Flush 0.9% 10 mL, Route: IVP, Drug Form: INJ, Dosing Weight 72.727, kg, PRN, PRN Line Flush , Start date: 05/02/16 17:34:00 CDT, Duration: 30 day, Stop date: 06/01/16 16:33 :00 [employer]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: (Same as: BD Posiflush) Start Date: 05/02/16 Stop Date: 05/02/16 Status: Discontinued Results ELECTROLYTES Most recent to 1 oldest [Reference Range]: Sodium Lvl [135-145 129 mEq/L mEq/L] *LOW* (05/02/16 6:28 PM) Potassium Lvl 3.8 mEq/L [3.5-5.1 mEq/L] (05/02/16 6:28 PM) Chloride Lvl [95-109 95 mEq/L mEq/L] (05/02/16 6:28 PM) CO2 [24-32 mEq/L] 26 mEq/L (05/02/16 6:28 PM) AGAP [10.0-20.0 11.8 mEq/L mEq/L] (05/02/16 6:28 PM) CHEM PANEL Most recent to 1 oldest [Reference Range]: Creatinine Lvl 0.79 mg/dL [0.50-1.40 mg/dL] (05/02/16 6:28 PM) eGFR 78 mL/min/1.73m2 1 *NA* (05/02/16 6:28 PM) BUN [7-22 mg/dL] 10 mg/dL (05/02/16 6:28 PM) B/C Ratio [6-25] 13 (05/02/16 6:28 PM) Glucose Lvl [70-99 135 mg/dL mg/dL] *HI* (05/02/16 6:28 PM) Total Protein 8.7 g/dL [6.4-8.4 g/dL] *HI* (05/02/16 6:28 PM) Albumin Lvl [3.5-5.0 4.3 g/dL g/dL] (05/02/16 6:28 PM) Globulin [2.7-4.2 4.4 g/dL g/dL] *HI* (05/02/16 6:28 PM) A/G Ratio [0.7-1.6] 1.0 (05/02/16 6:28 PM) Calcium Lvl 9.1 mg/dL [8.5-10.5 mg/dL] (05/02/16 6:28 PM) ALT [0-65 unit/L] 19 unit/L (05/02/16 6:28 PM) AST [0-37 unit/L] 19 unit/L (05/02/16 6:28 PM) Alk Phos [39-136 40 unit/L unit/L] (05/02/16 6:28 PM) Bili Total [0.2-1.3 0.3 mg/dL mg/dL] (05/02/16 6:28 PM) 1Result Comment: The eGFR is calculated [...] 1 oldest [Reference Range]: Total CK [12-191 187 unit/L unit/L] (05/02/16 6:28 PM) CK MB [0.5-3.6 2.2 ng/mL ng/mL] (05/02/16 6:28 PM) CK MB Index 1.2 [0.0-2.5] (05/02/16 6:28 PM) Troponin-I <0.02 ng/mL [0.00-0.40 ng/mL] (05/02/16 6:28 PM) BNP [<=100 pg/mL] 38 pg/mL (05/02/16 6:28 PM) URINE AND STOOL Most recent to 1 oldest [Reference Range]: UA Turbidity [Clear] Clear (05/02/16 7:58 PM) UA Color Colorless *NA* (05/02/16 7:58 PM) UA pH [5.0-8.0] 8.0 (05/02/16 7:58 PM) UA Spec Grav 1.005 [<=1.030] (05/02/16 7:58 PM) UA Glucose [Negative Negative mg/dL mg/dL] *NA* (05/02/16 7:58 PM) UA Blood [Negative] Negative (05/02/16 7:58 PM) UA Ketones [Negative Negative mg/dL mg/dL] *NA* (05/02/16 7:58 PM) UA Protein [Negative Negative mg/dL mg/dL] (05/02/16 7:58 PM) UA Urobilinogen <=1.0 mg/dL [0.1-1.0 mg/dL] *NA* (05/02/16 7:58 PM) UA Bili [Negative] Negative *NA* (05/02/16 7:58 PM) UA Leuk Est Negative [Negative] (05/02/16 7:58 PM) UA Nitrite Negative [Negative] (05/02/16 7:58 PM) UA WBC [0-5 /HPF] <1 /HPF (05/02/16 7:58 PM) UA RBC [0-2 /HPF] 2 /HPF (05/02/16 7:58 PM) UA Sq Epi [Few /LPF] Occasional /LPF *NA* (05/02/16 7:58 PM) HEMATOLOGY Most recent to 1 oldest [Reference Range]: WBC [3.7-10.4 K/CMM] 5.8 K/CMM (05/02/16 6:28 PM) RBC [4.20-5.40 3.92 M/CMM M/CMM] *LOW* (05/02/16 6:28 PM) Hgb [12.0-16.0 g/dL] 12.3 g/dL (05/02/16 6:28 PM) Hct [36.0-48.0 %] 35.3 % *LOW* (05/02/16 6:28 PM) MCV [80.0-98.0 fL] 90.0 fL (05/02/16 6:28 PM) MCH [27.0-31.0 pg] 31.3 pg *HI* (05/02/16 6:28 PM) MCHC [32.0-36.0 34.8 g/dL g/dL] (05/02/16 6:28 PM) RDW [11.5-14.5 %] 12.8 % (05/02/16 6:28 PM) Platelet [133-450 205 K/CMM K/CMM] (05/02/16 6:28 PM) MPV [7.4-10.4 fL] 8.2 fL (05/02/16 6:28 PM) Segs [45.0-75.0 %] 67.5 % (05/02/16 6:28 PM) Lymphocytes 24.8 % [20.0-40.0 %] (05/02/16 6:28 PM) Monocytes [2.0-12.0 6.8 % %] (05/02/16 6:28 PM) Eosinophils [0.0-4.0 0.3 % %] (05/02/16 6:28 PM) Basophils [0.0-1.0 0.6 % %] (05/02/16 6:28 PM) Segs-Bands # 3.9 K/CMM [1.5-8.1 K/CMM] (05/02/16 6:28 PM) Lymphocytes # 1.4 K/CMM [1.0-5.5 K/CMM] (05/02/16 6:28 PM) Monocytes # [0.0-0.8 0.4 K/CMM K/CMM] (05/02/16 6:28 PM) Immunizations No data available for this [...]
--- OUTSIDE RECORDS SUMMARY | 2018-05-03 14:01 | XMS REPORT | Summary of Care ---
Author Author [facility] Organization [facility] Address Unknown Phone Unavailable Encounter HQ Fransisca_sridhar(FIN) [id number] Date(s): 05/11/17 - 05/11/17 [facility] [address] [phone] Discharge Disposition: Home or Self Care Attending [...]
--- OUTSIDE RECORDS SUMMARY | 2018-05-03 14:01 | XMS REPORT | Summary of Care ---
Author Author [facility] Organization [facility] Address Unknown Phone Unavailable Encounter CHULA Latif(NEO) [id number] Date(s): 05/14/16 - 05/15/16 [facility] [address] [place] [address]- Discharge Diagnosis: Headache Discharge Diagnosis: Numbness and tingling in left arm Discharge Disposition: Home or Self Care Attending Physician: Js Ahumada MD Vital Signs 1 2 3 Most recent to oldest [Reference Range]: 154.94 cm (05/14/16 7:10 PM) Height 97.9 DegF (05/15/16 3:30 AM) 97.5 DegF (05/14/16 11:12 PM) 97.6 DegF (05/14/16 7:10 PM) Temperature Oral [96.4-99.1 DegF] 132/62 mmHg (05/15/16 3:30 AM) 120/74 mmHg (05/15/16 2:00 AM) 158/66 mmHg *HI* (05/14/16 11:40 PM) Blood Pressure [90-140/60-90 mmHg] 16 BRMIN (05/15/16 3:30 AM) 18 BRMIN (05/15/16 2:00 AM) 18 BRMIN (05/14/16 11:40 PM) Respiratory Rate [14-20 BRMIN] 64 bpm (05/15/16 3:30 AM) 89 bpm (05/15/16 2:00 AM) 90 bpm (05/14/16 11:40 PM) Peripheral Pulse Rate [60-100 bpm] 72.727 kg (05/14/16 7:10 PM) Weight 30.29 m2 (05/14/16 7:10 PM) Body Mass Index Problem List Condition Effective Dates Status Health Status Informant Diabetes(Confirmed) Active Hyperlipidemia(Confi Active rmed) Hypertension(Confirm Active ed) Allergies, Adverse Reactions, Alerts Substance Reaction Severity Status amLODIPine Active citalopram Active codeine Active hydrochlorothiazide Active ibuprofen Active lisinopril1 Active pravastatin2 Active traMADol Active 1HIVES 2HIVES Medications Benadryl 25 mg, Route: IVP, ONCE, Dosing Weight 72.727, kg, Priority: STAT, Start date: 1 0:40:00 CDT, Stop date: 05/15/16 0:40:00 CDT Start Date: 05/15/16 Stop Date: 05/15/16 Status: Completed Reglan 10 mg, Route: IVP, Drug form: INJ, ONCE, Dosing Weight 72.727, kg, Priority: STA T, Start date: 05/15/16 0:40:00 CDT, Stop date: 05/15/16 0:40:00 CDT Start Date: 05/15/16 Stop Date: 05/15/16 Status: Completed Tylenol 975 mg, Route: PO, Drug form: TAB, ONCE, Dosing Weight 72.727, kg, Priority: STA T, Start date: 05/15/16 0:40:00 CDT, Stop date: 05/15/16 0:40:00 CDT Start Date: 05/15/16 Stop Date: 05/15/16 Status: Completed Tylenol 325 mg oral tablet 650 mg=2 tab, PO, Q6H, PRN Pain, X 3 day, # 24 tab, 0 Refill(s) Start Date: 05/15/16 Stop Date: 05/18/16 Status: Ordered Results ELECTROLYTES Most recent to 1 2 oldest [Reference Range]: Sodium Lvl [135-145 131 mEq/L 130 mEq/L mEq/L] *LOW* *LOW* (05/15/16 2:06 AM) (05/15/16 2:06 AM) Potassium Lvl 3.7 mEq/L 3.8 mEq/L [3.5-5.1 mEq/L] (05/15/16 2:06 AM) (05/15/16 2:06 AM) Chloride Lvl [95-109 96 mEq/L 96 mEq/L mEq/L] (05/15/16 2:06 AM) (05/15/16 2:06 AM) CO2 [24-32 mEq/L] 26 mEq/L 26 mEq/L (05/15/16 2:06 AM) (05/15/16 2:06 AM) AGAP [10.0-20.0 12.7 mEq/L 11.8 mEq/L mEq/L] (05/15/16 2:06 AM) (05/15/16 2:06 AM) CHEM PANEL Most recent to 1 2 oldest [Reference Range]: Creatinine Lvl 0.63 mg/dL 0.70 mg/dL [0.50-1.40 mg/dL] (05/15/16 2:06 AM) (05/15/16 2:06 AM) eGFR 93 mL/min/1.73m2 1 90 mL/min/1.73m2 2 *NA* *NA* (05/15/16 2:06 AM) (05/15/16 2:06 AM) BUN [7-22 mg/dL] 7 mg/dL 7 mg/dL (05/15/16 2:06 AM) (05/15/16 2:06 AM) B/C Ratio [6-25] 11 10 (05/15/16 2:06 AM) (05/15/16 2:06 AM) Glucose Lvl [70-99 110 mg/dL 109 mg/dL mg/dL] *HI* *HI* (05/15/16 2:06 AM) (05/15/16 2:06 AM) Total Protein 7.5 g/dL 7.9 g/dL [6.4-8.4 g/dL] (05/15/16 2:06 AM) (05/15/16 2:06 AM) Albumin Lvl [3.5-5.0 3.9 g/dL 4.1 g/dL g/dL] (05/15/16 2:06 AM) (05/15/16 2:06 AM) Globulin [2.7-4.2 3.6 g/dL 3.8 g/dL g/dL] (05/15/16 2:06 AM) (05/15/16 2:06 AM) A/G Ratio [0.7-1.6] 1.1 1.1 (05/15/16 2:06 AM) (05/15/16 2:06 AM) Calcium Lvl 8.4 mg/dL 8.7 mg/dL [8.5-10.5 mg/dL] *LOW* (05/15/16 2:06 AM) (05/15/16 2:06 AM) Phosphorus [2.5-4.5 2.9 mg/dL mg/dL] (05/15/16 2:06 AM) Magnesium Lvl 2.1 mg/dL [1.8-2.4 mg/dL] (05/15/16 2:06 AM) ALT [0-65 unit/L] 20 unit/L 22 unit/L (05/15/16 2:06 AM) (05/15/16 2:06 AM) AST [0-37 unit/L] 13 unit/L 14 unit/L (05/15/16 2:06 AM) (05/15/16 2:06 AM) Alk Phos [39-136 35 unit/L 37 unit/L unit/L] *LOW* *LOW* (05/15/16 2:06 AM) (05/15/16 2:06 AM) Bili Total [0.2-1.3 0.5 mg/dL 0.4 mg/dL mg/dL] (05/15/16 2:06 AM) (05/15/16 2:06 AM) 1Result Comment: The eGFR is calculated [...] BMI. CARDIAC ENZYMES Most recent to 1 2 oldest [Reference Range]: Troponin-I <0.02 ng/mL [0.00-0.40 ng/mL] (05/15/16 2:06 AM) HEMATOLOGY Most recent to 1 2 oldest [Reference Range]: WBC [3.7-10.4 K/CMM] 5.5 K/CMM (05/15/16 2:06 AM) RBC [4.20-5.40 3.68 M/CMM M/CMM] *LOW* (05/15/16 2:06 AM) Hgb [12.0-16.0 g/dL] 11.5 g/dL *LOW* (05/15/16:06 AM) Hct [36.0-48.0 %] 33.4 % *LOW* (05/15/16 2:06 AM) MCV [80.0-98.0 fL] 90.5 fL (05/15/16 2:06 AM) MCH [27.0-31.0 pg] 31.2 pg *HI* (05/15/16:06 AM) MCHC [32.0-36.0 34.5 g/dL g/dL] (05/15/16 2:06 AM) RDW [11.5-14.5 %] 12.6 % (05/15/16 2:06 AM) Platelet [133-450 219 K/CMM K/CMM] (05/15/16 2:06 AM) MPV [7.4-10.4 fL] 7.9 fL (05/15/16 2:06 AM) Segs [45.0-75.0 %] 66.4 % (05/15/16 2:06 AM) Lymphocytes 21.5 % [20.0-40.0 %] (05/15/16 2:06 AM) Monocytes [2.0-12.0 9.0 % %] (05/15/16 2:06 AM) Eosinophils [0.0-4.0 2.5 % %] (05/15/16 2:06 AM) Basophils [0.0-1.0 0.6 % %] (05/15/16 2:06 AM) Segs-Bands # 3.6 K/CMM [1.5-8.1 K/CMM] (05/15/16 2:06 AM) Lymphocytes # 1.2 K/CMM [1.0-5.5 K/CMM] (05/15/16 2:06 AM) Monocytes # [0.0-0.8 0.5 K/CMM K/CMM] (05/15/16 2:06 AM) Eosinophils # 0.1 K/CMM [0.0-0.5 K/CMM] (05/15/16 2:06 AM) Immunizations No data available for this [...]
== END 2018-05-01 11:47 | disposition left against medical advice (07) ==
LOC: ER 10:38
DX: G89.29 Other chronic pain (principal)

== ENCOUNTER 2018-05-26 09:39 | Emergency (ER) | payer MEDICARE, OTHER ==
[~2018-05-26] VITALS: Ht 154.9 cm; Wt 74.8 kg
[2018-05-26] MEDS ORDERED: SODIUM CHLORIDE 0.9% 500ML 500 ML IV STA (10:06)
[2018-05-26] MEDS ORDERED: PANTOPRAZOLE 40 MG 10ML VIAL IV STA (10:06)
[2018-05-26 11:23] LABS: BASOPHILS % 0.4 % (0.0-1.0); EOSINOPHILS % 0.2 % (0.0-6.0); HEMATOCRIT 34.7 % (34.2-44.1); HEMOGLOBIN 12.1 g/dL (12.0-16.0); LYMPHOCYTES # (AUTO) 1.2 (1.0-3.2); LYMPHOCYTES % 25.8 % (18.0-39.1); MEAN CORPUSCULAR HEMOGLOBIN 31.3 pg (28-32); MEAN CORPUSCULAR HGB CONC 34.9 g/dL (31-35); MEAN CORPUSCULAR VOLUME 89.7 fL (81-99); MONOCYTES # (AUTO) 0.4 (0.2-0.8); MONOCYTES % 8.2 % (4.4-11.3); NEUTROPHILS # (AUTO) 2.9 (2.1-6.9); PLATELET COUNT 256 x10e3/uL (140-360); RED BLOOD COUNT 3.87 x10e6/uL (3.6-5.1)
[2018-05-26 11:27] LABS: CLARITY,URINE CLEAR (CLEAR); COLOR,URINE YELLOW (YELLOW)
[2018-05-26 11:28] LABS: BILIRUBIN,URINE NEGATIVE (NEGATIVE); KETONES,URINE NEGATIVE (NEGATIVE); LEUKOCYTE ESTERASE ,URINE NEGATIVE (NEGATIVE); NITRITE,URINE NEGATIVE (NEGATIVE); PROTEIN,URINE DIPSTICK NEGATIVE (NEGATIVE); URINE UROBILINOGEN 0.2 mg/dL (0.2 - 1)
[2018-05-26 11:33] LABS: INR 0.9
[2018-05-26 11:36] LABS: EPITHELIAL CELLS,URINE RARE /LPF
[2018-05-26 11:45] LABS: ALANINE AMINOTRANSFERASE 18 IU/L (0-55); ALBUMIN 4.2 g/dL (3.5-5.0); ALBUMIN/GLOBULIN RATIO 1.3 (0.8-2.0); ALKALINE PHOSPHATASE 42 IU/L (40-150); ANION GAP 14.7 mmol/L (8-16); BLOOD UREA NITROGEN 9 mg/dL (7-26); BUN/CREATININE RATIO 13 (6-25); CALCIUM 9.8 mg/dL (8.4-10.2); CARBON DIOXIDE 22 mmol/L (22-29); CHLORIDE 97 mmol/L (98-107); CREATINE KINASE 162 IU/L (29-168); CREATININE, SERUM 0.69 mg/dL (0.57-1.11); EST GLOMERULAR FILTRATION RATE > 60 ML/MIN (60-); GLUCOSE 110 mg/dL (74-118); POTASSIUM 3.7 mmol/L (3.5-5.1); SODIUM 130 mmol/L (136-145)
--- NOTE | 2018-05-26 13:45 | Diagnostic Imaging Report ---
Frontal and lateral views of the chest. HISTORY: Trouble breathing, pain, chest tightness COMPARISON: None available. DISCUSSION: Lungs: The lungs are well inflated. No evidence of a consolidative pneumonia or pulmonary alveolar edema. Pleura: No pleural effusion or pneumothorax. Heart and mediastinum: The cardiomediastinal silhouette appears unremarkable. Bones: No acute osseous lesion. Bulky anterior flowing nonmarginal syndesmophytes of the thoracic spine with relative preservation of the disc spaces. IMPRESSION: 1. No acute radiographic abnormality.\ 2. Findings compatible with DISH (Diffuse idiopathic skeletal hyperostosis). Signed by: Dr. Seth Fournier D.O., M.M.M. on 05/26/2018 1:42 PM
[2018-05-26] MEDS ORDERED: SODIUM CHLORIDE 0.9% 50ML 50 ML ONE (14:01)
[2018-05-26] MEDS ORDERED: IOPAMIDOL 370 MG/ML 200 ML INFUS..BTL INJ ONE (14:01)
--- NOTE | 2018-05-26 14:22 | Diagnostic Imaging Report ---
EXAM: CT Abdomen and Pelvis WITH contrast INDICATION: ^abd pain ^[id number] ^1300 COMPARISON: CT abdomen and pelvis 04/29/2018 TECHNIQUE: Abdomen and pelvis were scanned utilizing a multidetector helical scanner from the lung base to the pubic symphysis after administration of IV contrast. Coronal and sagittal reformations were obtained. Routine protocol was performed. Scan was performed when during portal venous phase. IV CONTRAST: 100 mL of Isovue-370 ORAL CONTRAST: Water RADIATION DOSE: Total DLP: 302.8 mGy*cm Estimated effective dose: (DLP x 0.015 x size factor) mSv COMPLICATIONS: None FINDINGS: LINES and TUBES: None. LOWER THORAX: Unremarkable HEPATOBILIARY: No focal hepatic lesions. No biliary ductal dilation. GALLBLADDER: No radio-opaque stones or sludge. No wall thickening. SPLEEN: No splenomegaly. PANCREAS: No focal masses or ductal dilatation. ADRENALS: No adrenal nodules KIDNEYS/URETERS: Kidneys enhance symmetrically. No hydronephrosis. Unchanged few bilateral subcentimeter renal cysts. No stones. GI TRACT: No abnormal distention, wall thickening, or evidence of bowel obstruction. Appendix is normal. PELVIC ORGANS/BLADDER: Unremarkable. LYMPH NODES: No lymphadenopathy. VESSELS: Atherosclerotic calcifications of the abdominal aorta without aneurysm. PERITONEUM / RETROPERITONEUM: No free air or fluid. BONES: Sclerosis at the right sacroiliac joint. Lower lumbar facet arthropathy. Thoracic spine skeletal hyperostosis. SOFT TISSUES: Unremarkable. IMPRESSION: No acute abnormality within the abdomen and pelvis. Signed by: Dr. Elsie Leon M.D. on 05/26/2018 2:19 PM
[2018-05-26] MEDS ORDERED: SODIUM CHLORIDE 0.9% 500ML 500 ML ONE (14:43)
[2018-05-26] MEDS ORDERED: PANTOPRAZOLE 40 MG 10ML VIAL ONE (14:45)
== END 2018-05-26 15:56 | disposition home or self-care (01) ==
LOC: ER 09:39
DX: R10.12 Left upper quadrant pain (principal); R11.0 Nausea; K58.9 Irritable bowel syndrome, unspecified; E11.9 Type 2 diabetes mellitus without complications; M06.9 Rheumatoid arthritis, unspecified; M81.0 Age-related osteoporosis without current pathological fracture; G89.29 Other chronic pain
CPT/HCPCS: 36415; 71046; 74177; 80053; 81001; 82550; 82553; 83880; 84484; 85025; 85610; 85730; 93005; 99284; J7040; Q9967

== ENCOUNTER 2018-06-04 13:12 | Emergency (ER) | payer MEDICARE, OTHER ==
[~2018-06-04] VITALS: Ht 154.9 cm; Wt 74.8 kg
--- OUTSIDE RECORDS SUMMARY | 2018-06-04 13:17 | XMS REPORT | Continuity of Care Document ---
Author Author Dona pranav [facility] Interface Address Unknown Phone Unavailable Problems Problem Status Onset Date Classification Date Reported Comments Source SOB Active 04/06/2018 [facility] URINARY SYMPTOMS Active 04/02/2018 [place] DIZZINESS Active 03/29/2018 [place] HEADACHE Active 03/28/2018 [place] WEAKNESS Active 03/27/2018 [place] HYPONATREMIA Active 03/25/2018 [facility] DIFFICULTY BREATHING Active 03/25/2018 [facility] ACUTE HYPONATREMIA, GENERALIZED MUSCLE W Active 03/23/2018 [facility] BACK PAIN Active 03/23/2018 [facility] COUGH Active 03/19/2018 [facility] HYPERTENSION Active 03/18/2018 [facility] ELEVATED B/P Active 03/18/2018 [facility] R26.81 - UNSTEADINESS ON FEET Active 03/01/2018 [place] Discharge Diagnosis: Headache 05/15/2016 05/18/2016 [place] Discharge Diagnosis: Numbness and tingling in left arm 05/15/2016 05/18/2016 [facility] ALLERGIC REACTION Active 05/14/2016 [place] Discharge Diagnosis: Hyperglycemia 05/08/2016 05/11/2016 [place] Discharge Diagnosis: Hyponatremia 05/08/2016 05/11/2016 [facility] OTHER Active 05/07/2016 [place] Discharge Diagnosis: Anxiety reaction 05/04/2016 05/07/2016 [place] Discharge Diagnosis: Uncontrolled hypertension 05/04/2016 05/07/2016 [facility] HIGH BP Active 05/03/2016 [place] Discharge Diagnosis: Acute headache 05/02/2016 05/05/2016 [place] Discharge Diagnosis: Hypertension 05/02/2016 05/05/2016 [place] Discharge Diagnosis: Chest pain 05/02/2016 05/05/2016 [place] Discharge Diagnosis: Chronic hyponatremia 05/02/2016 05/05/2016 [facility] HIGH BLOOD PRESSURE Active 05/02/2016 [facility] CHEST PAIN, HYPONATREMIA Active 04/28/2016 [facility] CHEST PAIN Active 04/28/2016 [facility] SHORTNESS OF BREATH Active 04/22/2016 [place] Discharge Diagnosis: Acute tension-type headache 09/28/2015 10/01/2015 [facility] Discharge Diagnosis: Headache, migraine 09/28/2015 10/01/2015 [facility] 844.2 Active 11/22/2014 [facility] Diabetes Active Problem 01/28/2018 [facility] [place] Hyperlipidemia Active Problem 01/28/2018 [facility] [place] Hypertension Active Problem 01/28/2018 [facility], [facility] [place] Encounter for screening mammogram for malignant neoplasm of breast 11/13/2017 [facility] [place] Diabetes Active Problem 02/10/2018 [facility], [facility] Body mass index 31.0-31.9, adult(<span ID="[id number]</span>) Active Problem 02/10/2018 [facility] [place], [facility] Hyperlipidemia Active Problem 02/10/2018 [facility], [facility] Hypertension Active Problem 02/10/2018 [facility] Osteoporosis Active Problem 02/10/2018 [facility] Left knee pain Active Problem 02/10/2018 [facility] Medial meniscus tear Active Problem 02/10/2018 [facility] Unsteady gait Active Problem 02/10/2018 [facility],[place] Diabetes Active Problem 02/08/2018 [facility] Body mass index 31.0-31.9, adult(<span ID="[id number]">Confirmed</span>) Active Problem 02/08/2018 [facility] [place] Hyperlipidemia Active Problem 02/08/2018 [facility] Hypertension Active Problem 02/08/2018 [facility] Osteoporosis Active Problem 02/08/2018 [facility] [place] NECK PAIN Active [facility] [place] CHEST PAIN, UNSPECIFIED Active [facility] HYPO-OSMOLALITY AND HYPONATREMIA Active [facility] MUSCLE WEAKNESS (GENERALIZED) Active [facility] Medications Medication Details Route Status Patient Instructions Ordering Provider Order Date Source Walker 1 ea, MISC, ONCALL, dispense 1 rollator walker, # 1 ea, 0 Refill(s) Active 02/08/[facility] naproxen 500 mg oral tablet 500 mg=1 tab, PO, BID, X 14 day, # 28 tab, 0 Refill(s), Pharmacy: [id number] Active 02/05/2018 [facility] glimepiride 2 mg oral tablet 2 mg=1 tab, PO, Breakfast, # 90 tab, 1 Refill(s), Pharmacy: [id number] Active 01/25/2018 [facility] lisinopril 10 mg oral tablet 10 mg=1 tab, PO, BID, # 180 tab, 1 Refill(s), Pharmacy: [id number] Active 01/25/2018 [facility] tizanidine 2 mg oral tablet 2 mg=1 tab, PO, Bedtime, PRN for muscle spasms, # 30 tab, 1 Refill(s), Pharmacy: [id number] Active 01/25/2018 [facility] meloxicam 7.5 mg oral tablet 7.5 mg=1 tab, PO, Daily, # 30 tab, 1 Refill(s), Pharmacy: [id number] Active 01/25/2018 [facility] mometasone furoate 0.05 MG/ACTUAT Metered Dose Nasal [place] 2 spray, NASAL, Daily, # 1 btl, [...] # 24 tab, 0 Refill(s) Active 05/15/2016 [facility] Reglan 10 mg, Route: IVP, Drug form: INJ, ONCE, Dosing Weight 72.727, kg, Priority: STAT, Start date: 05/15/16 0:40:00 CDT, Stop date: 05/15/16 0:40:00 CDT Inactive 05/15/2016 [facility] Benadryl 25 mg, Route: IVP, ONCE, Dosing Weight 72.727, kg, Priority: STAT, Start date: 05/15/16 0:40:00 CDT, Stop date: 05/15/16 0:40:00 CDT Inactive 05/15/2016 [facility] Tylenol 975 mg, Route: PO, Drug form: TAB, ONCE, Dosing Weight 72.727, kg, Priority: STAT, Start date: 05/15/16 0:40:00 CDT, Stop date: 05/15/16 0:40:00 CDT Inactive 05/15/2016 [facility] Sodium Chloride 0.154 MEQ/ML Injectable Solution 1,000 mL, 2,000 ml/hr, Infuse Over: 30 minutes, Route: IV, ONCE, Priority: STAT, Dosing Weight 72.727 kg, Start date: 05/08/16 2:10:00 CDT, Duration: 1 doses or times, Stop date: 05/08/16 2:10:00 CDT Inactive 05/08/2016 [facility] Clonidine Hydrochloride 0.1 MG Oral Tablet 0.1 mg=1 tab, PO, Q8H, PRN Hypertension, Systolic BP > 160, # 90 tab, 3 Refill(s) Active 05/04/2016 [facility] Tylenol 650 mg, 2 tab, Route: PO, Drug form: TAB, ONCE, Dosing Weight 72.727, kg, Priority: STAT, Start date: 05/04/16 1:26:00 CDT, Stop date: 05/04/16 1:26:00 CDTNotes: Do not exceed 4 gm/day. (Same as: Ty lenol) Inactive 05/04/2016 [facility] Clonidine Hydrochloride 0.1 MG Oral Tablet 0.1 mg, 1 tab, Route: PO, Drug form: TAB, ONCE, Dosing Weight 72.727, kg, Priority: STAT, Start date: 05/04/16 1:02:00 CDT, Stop date: 05/04/16 1:02:00 CDTNotes: (Same As: Catapres) Inactive 05/04/2016 [facility] Ondansetron 4 mg, 2 mL, Route: IVP, Drug form: INJ, ONCE, Dosing Weight 72.727, kg, Priority: STAT, Start date: 05/04/16 1:02:00 CDT, Stop date: 05/04/16 1:02:00 CDTNotes: (Same as: Latrell) MEDICATION WASTE * Product Size: 4 mg Product Wasted: ___ mg Inactive 05/04/2016 [facility] Morphine 2 mg, Route: IVP, ONCE, Dosing Weight 72.727, kg, Priority: STAT, Start date: 05/04/16 1:02:00 CDT, Stop date: 05/04/16 1:02:00 CDT Inactive 05/04/2016 [facility] Aspirin 324 mg, 4 tab, Route: PO, Drug form: CHEWTAB, ONCE, Dosing Weight 72.727, kg, Priority: STAT, Start date: 05/04/16 1:02:00 CDT, Stop date: 05/04/16 1:02:00 CDTNotes: Take with food. Inactive 05/04/2016 [facility] Saline Flush 0.9% 10 mL, Route: IVP, Drug Form: INJ, Dosing Weight 72.727, kg, PRN, PRN Line Flush, Start date: 05/04/16 1:02:00 CDT, Duration: 30 day, Stop date: 06/03/16 0:01:00 CSTNotes: (Same as: BD Posiflush) Inactive 05/04/2016 [facility] Acetaminophen 650 mg, Route: PO, Drug form: TAB, ONCE, Dosing Weight 81.818, kg, Priority: STAT, Start date: 05/02/16 19:46:00 CDT, Stop date: 05/02/16 19:46:00 CDT Inactive 05/03/2016 [facility] Saline Flush 0.9% 10 mL, Route: IVP, Drug Form: INJ, Dosing Weight 72.727, kg, PRN, PRN Line Flush, Start date: 05/02/16 17:34:00 CDT, Duration: 30 day, Stop date: 06/01/16 16:33:00 CSTNotes: (Same as: BD Posiflush) Inactive 05/02/2016 [facility] Pepcid 40 mg, 4 mL, Route: IV, Drug form: INJ, ONCE, Dosing Weight 72.727, kg, Start date: 05/02/16 4:50:00 CDT, Stop date: 05/02/16 4:50:00 CDTNotes: (Same as: Pepcid) Can be dilute in 5-10cc NS IVP: Slow IV push over at least 2 minutes. Inactive 05/02/2016 [facility] Benadryl 25 mg, 0.5 mL, Route: IVP, Drug form: INJ, ONCE, Dosing Weight 72.727, kg, Priority: STAT, Start date: 05/02/16 4:50:00 CDT, Stop date: 05/02/16 4:50:00 CDTNotes: (Same as: Benadryl) Inactive 05/02/2016 [facility] Tylenol 650 mg, 2 tab, Route: PO, Drug form: TAB, ONCE, Dosing Weight 72.727, kg, Priority: STAT, Start date: 05/02/16 1:42:00 CDT, Stop date: 05/02/16 1:42:00 CDTNotes: Do not exceed 4 gm/day. (Same as: Ty lenol) Inactive 05/02/2016 [facility] Hydralazine Hydrochloride 25 MG Oral Tablet 25 mg=1 tab, PO, Q8H, # 90 tab, 5 Refill(s) Active 04/30/2016 [facility] Miralax 17 gm, 1 pkt, Route: PO, Drug form: PWDR, ONCE, Dosing Weight 75, kg, Start date: 04/30/16 12:28:00 CDT, Duration: 1 doses or times, Stop date: 04/30/16 12:28:00 CDTNotes: Dissolve in 8 oz of water or juice. (Same as: Miralax) Inactive 04/30/2016 [facility] 24 HR Nifedipine 30 MG Extended Release Tablet 30 mg, Route: PO, Drug form: ERTAB, Daily, Dosing Weight 75, kg, Start date: 04/30/16 9:00:00 CDT, Duration: 30 day, Stop date: 05/29/16 9:00:00 STAFF PSYCHIATRIST No Longer Active 04/30/2016 [facility] Tylenol 650 mg, 2 tab, Route: PO, Drug form: TAB, Q4H, Dosing Weight 75, kg, PRN Pain Score 1-3, Start date: 04/29/16 20:11:00 CDT, Duration: 30 day, Stop date: 05/29/16 20:10:00 CSTNotes: Do not exceed 4 gm/day. (Same as: Tylenol) No Longer Active 04/30/2016 [facility] Hydralazine Hydrochloride 25 MG Oral Tablet 25 mg, 1 tab, Route: PO, Drug form: TAB, Q6H, Dosing Weight 75, kg, Start date: 04/29/16 18:00:00 CDT, Duration: 30 day, Stop date: 05/29/16 12:00:00 CSTNotes: (Same as: Apresoline) May interfere w/enteral feedings Take With Food. No Longer Active 04/29/2016 [facility] Lyrica 100 mg, 2 cap, Route: PO, Drug form: CAP, TID, Dosing Weight 75, kg, Start date: 04/29/16 9:00:00 CDT, Duration: 30 day, Stop date: 05/28/16 21:00:00 CSTNotes: Same as Lyrica No Longer Active 04/29/2016 [facility] Pravachol 20 mg, 1 tab, Route: PO, Drug form: TAB, Daily, Dosing Weight 75, kg, Start date: 04/29/16 9:00:00 CDT, Duration: 30 day, Stop date: 05/28/16 9:00:00 CSTNotes: (Same as: Pravachol) No Longer Active 04/29/2016 [facility] Glipizide 2.5 MG / Metformin hydrochloride 250 MG Oral Tablet 1 tab, Route: PO, Drug Form: TAB, Dosing Weight 75, kg, Daily, Start date: 04/29/16 9:00:00 CDT, Duration: 30 day, Stop date: 05/28/16 9:00:00 STAFF PSYCHIATRIST Inactive 04/29/2016 [facility] Lisinopril 10 mg, 2 tab, Route: PO, Drug form: TAB, Daily, Dosing Weight 75, kg, Start date: 04/29/16 9:00:00 CDT, Duration: 30 day, Stop date: 05/28/16 9:00:00 CSTNotes: (Same as: Prinivil, Zestril) No Longer Active 04/29/2016 [facility] Glucotrol 2.5 mg, 0.5 tab, Route: PO, Drug form: TAB, Daily, Start date: 04/29/16 9:00:00 CDT, Duration: 30 day, Stop date: 05/28/16 9:00:00 CSTNotes: (Same as: Glucotrol) 30 min before meals. No Longer Active 04/29/2016 [facility] Glucophage 250 mg, 0.5 tab, Route: PO, Drug form: TAB, Daily, Start date: 04/29/16 9:00:00 CDT, Duration: 30 day, Stop date: 05/28/16 9:00:00 CSTNotes: (Same as: Glucophage) Take with meal No Longer Active 04/29/2016 [facility] Temazepam 30 mg, 2 cap, Route: PO, Drug form: CAP, Bedtime, Dosing Weight 75, kg, PRN Sleep, Start date: 04/29/16 0:10:00 CDT, Duration: 30 day, Stop date: 05/29/16 0:09:00 CSTNotes: (Same As: Restoril) No Longer Active 04/29/2016 [facility] sodium chloride 0.9% 1000 ml INJ 1,000 mL 1,000 mL, Rate: 75 ml/hr, Infuse over: 13.3 hr, Route: IV, Dosing Weight 75 kg, Total Volume: 1,000, Start date: 04/29/16 0:06:00 CDT, Duration: 30 day, Stop date: 05/29/16 0:05:00 STAFF PSYCHIATRIST No Longer Active 04/29/2016 [facility] Saline Flush 0.9% 10 ml, Route: IVP, Drug Form: INJ, Dosing Weight 75, kg, Q12H, Start date: 04/28/16 21:00:00 CDT, Duration: 30 day, Stop date: 05/28/16 9:00:00 CSTNotes: (Same as: BD Posiflush) No Longer Active 04/29/2016 [facility] Saline Flush 0.9% 10 ml, Route: IVP, Drug Form: INJ, Dosing Weight 75, kg, PRN, PRN Line Flush, Start date: 04/28/16 13:12:00 CDT, Duration: 30 day, Stop date: 05/28/16 12:11:00 CSTNotes: (Same as: BD Posiflush) No Longer Active 04/28/2016 [facility] Nitroglycerin 0.4 mg, 1 tab, Route: SL, Drug form: TAB, Q5Min, Dosing Weight 75, kg, PRN Chest Pain, Start date: 04/28/16 13:12:00 CDT, Duration: 3 doses or times, Stop date: Limited # of timesNotes: (Same as:Nitr oquick, Nitrostat) "Do Not Crush" Sublingual tablet No Longer Active 04/28/2016 [facility] Morphine 2 mg, 1 mL, Route: IVP, Drug form: INJ, Q15Min, Dosing Weight 75, kg, PRN Chest Pain, Start date: 04/28/16 13:12:00 CDT, Duration: 2 doses or times, Stop date: Limited # of timesNotes: (Same as:MORPh ine Sulfate) No Longer Active 04/28/2016 [facility] Aspirin 325 mg, Route: PO, Drug form: ECTAB, ONCE, Dosing Weight 75, kg, Priority: STAT, Start date: 04/28/16 8:40:00 CDT, Stop date: 04/28/16 8:40:00 CDT Inactive 04/28/2016 [facility] Labetalol 10 mg, Route: IVP, Drug form: INJ, ONCE, Dosing Weight 75, kg, Priority: STAT, Start date: 04/28/16 8:39:00 CDT, Stop date: 04/28/16 8:39:00 CDT Inactive 04/28/2016 [facility] Nitroglycerin 0.4 mg, 1 tab, Route: SL, Drug form: TAB, Q5Min, Dosing Weight 75, kg, PRN Chest Pain, Start date: 04/28/16 8:38:00 CDT, Duration: 3 doses or times, Stop date: Limited # of timesNotes: (Same as:Nitro quick, Nitrostat) "Do Not Crush" Sublingual tablet Inactive 04/28/2016 [facility] Saline Flush 0.9% 10 mL, Route: IVP, Drug Form: INJ, Dosing Weight 75, kg, PRN, PRN Line Flush, Start date: 04/28/16 8:38:00 CDT, Duration: 30 day, Stop date: 05/28/16 7:37:00 CSTNotes: (Same as: BD Posiflush) Inactive 04/28/2016 [facility] ondansetron 8 mg oral tablet 8 mg=1 tab, PO, TID, X 4 day, # 30 tab, 0 Refill(s) Active 09/29/2015 [facility] Acetaminophen 300 MG / butalbital 50 MG / Caffeine 40 MG Oral Capsule [Fioricet] 1 cap, PO, Q4H, PRN Pain, Do not exceed 6 capsules in 24 hours, # 30 caplet, 0 Refill(s) Active 09/29/2015 [facility] Aspirin 325 MG / butalbital 50 MG / Caffeine 40 MG Oral Capsule [Fiorinal] 1 cap, Route: PO, Dosing Weight 71.818, kg, ONCE, STAT, Start date: 09/28/15 20:28:00, Stop date: 09/28/15 20:28:00 Inactive 09/29/2015 [facility] Aspirin 324 mg, Route: PO, ONCE, Dosing Weight 71.818, kg, Priority: STAT, Start date: 09/28/15 18:28:00, Stop date: 09/28/15 18:28:00 Inactive 09/29/2015 [facility] Morphine 4 mg, Route: IVP, ONCE, Dosing Weight 71.818, kg, Priority: STAT, Start date: 09/28/15 18:28:00, Stop date: 09/28/15 18:28:00 Inactive 09/29/2015 [facility] Ondansetron 4 mg, Route: IVP, ONCE, Dosing Weight 71.818, kg, Priority: STAT, Start date: 09/28/15 18:28:00, Stop date: 09/28/15 18:28:00 Inactive 09/29/2015 [facility] Saline Flush 0.9% 10 mL, Route: IVP, Drug Form: INJ, Dosing Weight 71.818, kg, PRN, PRN Line Flush, Start date: 09/28/15 18:28:00, Duration: 30 day, Stop date: 10/28/15 19:27:00Notes: (Same as: BD Posiflush) Inactive 09/29/2015 [facility] Benadryl 25 mg, Route: IVP, ONCE, Dosing Weight 71.818, kg, Priority: STAT, Start date: 09/28/15 18:28:00, Stop date: 09/28/15 18:28:00 Inactive 09/29/2015 [facility] Reglan 10 mg, Route: IVP, Drug form: INJ, ONCE, Dosing Weight 71.818, kg, Priority: STAT, Start date: 09/28/15 18:28:00, Stop date: 09/28/15 18:28:00 Inactive 09/29/2015 [facility] Acetaminophen 300 MG / butalbital 50 MG / Caffeine 40 MG Oral Capsule [Fioricet] 1 cap, PO, Q4H, PRN PRN Headache, Do not exceed 6 capsules in 24 hours, X 10 day, # 60 cap, 0 Refill(s) Active 09/17/2015 [facility] Reglan 10 mg, 2 mL, Route: IVP, Drug form: INJ, ONCE, Dosing Weight 70.455, kg, Priority: STAT, Start date: 09/16/15 18:22:00, Stop date: 09/16/15 18:22:00Notes: (Same as: Reglan) Inactive 09/17/2015 [facility] Benadryl 25 mg, 0.5 mL, Route: IVP, Drug form: INJ, ONCE, Dosing Weight 70.455, kg, Priority: STAT, Start date: 09/16/15 18:22:00, Stop date: 09/16/15 18:22:00Notes: (Same as: Benadryl) Inactive 09/17/2015 [facility] Sodium Chloride 0.154 MEQ/ML Injectable Solution 1,000 mL, 1000 ml/hr, Infuse Over: 1 hr, Route: IV, 1,000, Drug form: INJ, ONCE, Priority: STAT, Dosing Weight 70.455 kg, Start date: 09/16/15 18:21:00, Duration: 1 doses or times, Stop date: 09/16/15 18:21:00 Inactive 09/17/2015 [facility] Ativan 1 mg, 1 tab, Route: PO, Drug form: TAB, ONCE, Dosing Weight 70.455, kg, Priority: STAT, Start date: 09/16/15 18:21:00, Stop date: 09/16/15 18:21:00Notes: (Same as: Ativan) Inactive 09/17/2015 [facility] Allergies, Adverse Reactions, Alerts Substance Category Reaction Severity Reaction type Status Date Reported Comments Source amLODIPine Assertion Drug allergy [facility] citalopram Assertion Drug allergy [facility] codeine Assertion Drug allergy Active [facility] [place] hydrochlorothiazide Assertion Drug allergy Active [facility] ibuprofen Assertion Drug allergy Active [facility] [place] lisinopril<sup>1</sup> Assertion Drug allergy Active [facility] [place] pravastatin<sup>2</sup> Assertion Drug allergy Active [facility] [place] traMADol Assertion Drug allergy Active [facility] [place] codeine<sup>1</sup> Assertion Drug allergy Active [facility] ibuprofen<sup>2</sup> Assertion Drug allergy Active [facility] pravastatin<sup>3</sup> Assertion Drug allergy Active [facility] traMADol<sup>4</sup> Assertion Drug allergy Active [facility] pravastatin<sup>1</sup> Assertion Drug allergy Active [facility] [place] lisinopril<sup>2</sup> Assertion Drug allergy Active [facility] [place] Immunizations Immunization Date Given Site Status Last [...] acute radiographic abnormality of the thorax. SL: [id number] 04/06/2018 - - Read by: Alistair Padilla MD Dictated Date/time: 04/06/18 15:12 Electronically Signed by: Alistair Padilla MD 04/06/18 15:14 FINAL REPORT [facility] 1view DX Chest 1view DX Clinical Indication: - fatigue; Comparison: 03/27/2018 Technique: X-ray chest frontal projection FINDINGS: There is no consolidation, pleural effusion or pneumothorax. The heart is normal in size. The mediastinum and berna are unremarkable. The visualized bones and soft tissues are within normal limits. IMPRESSION: No chest radiographic evidence of acute cardiopulmonary disease. SL: ANA MARÍA 04/02/2018 - - Read by: Lana De Luna MD Dictated Date/time: 04/02/18 17:39 Electronically Signed by: Lana De Luna MD 04/02/18 17:40 FINAL REPORT [facility] Chest 1view DX Chest 1view DX EXAM: Chest 1view DX DATE: 03/27/2018 8:40 PM CDT INDICATION: Chest pain - chest pain COMPARISON: 03/25/2018. IMPRESSION: Stable cardiac silhouette and mediastinum. The lungs are mildly hyperexpanded. No focal consolidation, significant pleural effusion or pneumothorax. SL: [id number] 03/27/2018 - - Read by: Brett Louise MD Dictated Date/time: 03/27/18 21:14 Electronically Signed by: Brett Louise MD 03/27/18 21:15 FINAL REPORT [facility] Chest 1view DX Chest 1view DX [...] Lev Mathew MD 03/25/18 22:48 FINAL REPORT [facility] Brain wo contrast CT Brain wo [...] changes of the right temporomandibular joint. SL: [id number] 03/23/2018 - - Read by: Garrett Jason MD Dictated Date/time: 03/23/18 21:44 Electronically Signed by: Garrett Jason MD 03/23/18 21:48 FINAL REPORT [facility] Chest 1view DX Chest 1view DX Clinical Indication: Dyspnea, weakness, back pain. Comparison: 03/21/2018 FINDINGS: AP view of the chest submitted for interpretation. Lungs are clear. Heart mildly to moderately enlarged. Central pulmonary vasculature appears normal. No effusion. No pneumothorax. No radiographically apparent acute osseous abnormality. IMPRESSION: 1. No radiographically apparent acute cardiopulmonary process. 2. Mild to moderate cardiomegaly. SL: [id number] 03/23/2018 - - Read by: Essence Perez MD Dictated Date/time: 03/23/18 20:26 Electronically Signed by: Essence Perez MD 03/23/18 20:26 FINAL REPORT [facility] 1view DX Chest 1view DX Study: Chest 1view DX Clinical Indication: - dyspnea Comparison: Chest x-ray from 03/19/2018 FINDINGS: The cardiac silhouette is normal in size. The lungs are clear and without consolidation or congestion. No pleural effusion or pneumothorax is seen. The osseous structures are unremarkable. IMPRESSION: No acute cardiopulmonary disease. SL: [id number] 03/21/2018 - - Read by: Lev Mathew MD Dictated Date/time: 03/21/18 10:30 Electronically Signed by: Lev Mathew MD 03/21/18 10:30 FINAL REPORT [facility] Abdomen RUQ US Abdomen RUQ US [...] identified. No bile duct dilatation. END REPORT SL: [id number] 03/19/2018 - - Read by: Colin Marroquin MD Dictated Date/time: 03/19/18 08:13 Electronically Signed by: Colin Marroquin MD 03/19/18 08:15 FINAL REPORT [facility] Chest 1view DX Chest 1view DX EXAM: Chest 1view DX DATE: 03/19/2018 6:20 AM CDT INDICATION: - cough/chest pain. COMPARISON: 03/18/2018. IMPRESSION: Stable cardiac silhouette and mediastinum. Atherosclerotic thoracic aorta. No focal consolidation, significant pleural effusion or pneumothorax. SL: [id number] 03/19/2018 - - Read by: Brett Louise MD Dictated Date/time: 03/19/18 06:45 Electronically Signed by: Brett Louise MD 03/19/18 06:46 FINAL REPORT [facility] Brain wo contrast CT Brain wo [...] No CT evidence of acute intracranial abnormality. SL: MITCHELL 03/18/2018 - - Read by: Quinton Escoto MD Dictated Date/time: 03/18/18 04:12 Electronically Signed by: Quinton Escoto MD 03/18/18 04:17 FINAL REPORT [facility] Chest 1view DX Chest 1view DX EXAM: Chest radiograph HISTORY: Chest pain, shortness of breath, hypertension COMPARISON: 05/15/2016 TECHNIQUE: Frontal view of the chest FINDINGS/IMPRESSION: The lungs are well-inflated and may reflect a deep inspiration or COPD. No appreciable pneumonia, edema, or significant pleural effusion. Heart size upper normal. SL: [id number] 03/18/2018 - - Read by: Jude Faye MD Dictated Date/time: 03/18/18 03:35 Electronically Signed by: Jude Faye MD 03/18/18 03:38 FINAL REPORT [facility] Spine lumbar wo contrast MRI Spine [...] Seun Correa MD 03/07/18 09:20 FINAL REPORT [place] Spine lumbar 2 or 3 views DX [...] Forrest Myers MD 02/07/18 12:16 FINAL REPORT [facility] Knee 3 views DX Knee 3 [...] Lory Antoine MD 01/25/18 15:45 FINAL REPORT [facility] DONTAE incl CAD MA Breast Mammo Scrn DONTAE incl CAD MA BILATERAL DIGITAL SCREENING MAMMOGRAM WITH CAD: 11/10/2017 CLINICAL: Routine/Screening. Current study was evaluated with a Computer Aided Detection (CAD) system. COMPARISON:Comparison is made to exams dated: 09/02/2016 mammogram, 01/26/2013 mammogram, 11/23/2011 mammogram - [facility], and 09/18/2010 mammogram - [facility]. TECHNIQUE: Mammographic views were obtained using digital [...] is recommended.(11/11/2018) This exam was interpreted at [id number] for RONNIE Loaiza, SL 15. Professional services are provided by the [facility] M.D. [facility] Division of Diagnostic Imaging. Raheem Horn M.D. cm/penrad:11/11/2017 08:27:55 Director Park(s): RT Viry(R)(M), [facility] letter sent: BI-RADS 1/2 Mammogram BI-RADS: 2 Benign 11/10/2017 - - Read by: Nemesio Saenz MD Dictated Date/time: 11/11/17 08:27 Electronically Signed by: Nemesio Saenz MD 11/11/17 08:27 FINAL REPORT RONNIE GONCALVES Fadia Bone Density [employer] [place] Bone [...] for fracture. This exam was interpreted at [id number] for SHELLI Elizalde 15Adamaris Horn M.D. cm/penrad:05/11/2017 16:48:33 Director Park(s): Leti FELDMAN(R)(M), [facility] 05/11/2017 - - Read by: Nemesio Saenz MD Dictated Date/time: 05/11/17 16:48 Electronically Signed by: Nemesio Saenz MD 05/11/17 16:48 [facility]PORT [facility] [place] Breast Mammo Scrn DONTAE incl CAD MA Breast Mammo Scrn DONTAE incl CAD MA - BREAST MAMMO SCRN [place]E INCL CAD MA BILATERAL DIGITAL SCREENING MAMMOGRAM WITH CAD: 09/02/2016 CLINICAL: Z12.31 Encounter For Screening Mammogram For Malignant Neoplasm Of Breast. Current study was evaluated with a Computer Aided Detection (CAD) system. Comparison is made to exams dated: 01/26/2013 mammogram, 11/23/2011 mammogram - [facility] and 09/18/2010 mammogram - [facility]. There are scattered fibroglandular densities in both [...] Diagnostic Imaging. Raheem Horn M.D. cm/penrad:09/03/2016 08:34:56 Director Park: Leti ZARAGOZA)(Taj), [facility] This exam was dictated and interpreted by [id number] for RONNIE Loaiza. letter sent: Normal exam Mammogram BI-RADS: 2 Benign 09/02/2016 - - Read by: Nemesio Saenz MD Dictated Date/time: 09/03/16 08:34 Electronically Signed by: Nemesio Saenz MD 09/03/16 08:34 FINAL REPORT RONNIE Loaiza CARDIAC ENZYMES Troponin-I null 0.00 - 0.40 05/15/2016 [facility] CHEM PANEL eGFR 93 mL/min/1.73m2 05/15/2016 Result [...] should be multiplied by the estimated BMI. [facility] CHEM PANEL Calcium Lvl 8.4 mg/dL 8.5 - 10.5 05/15/2016 [facility] CHEM PANEL Potassium Lvl 3.7 meq/L 3.5 [...] Lvl 96 meq/L 95 - 109 05/15/2016 [facility] CHEM PANEL AST 14 unit/L 0 - 37 05/15/2016 [facility] CHEM PANEL Alk Phos 37 unit/L 39 - 136 05/15/2016 [facility] CHEM PANEL Potassium Lvl 3.8 meq/L 3.5 - 5.1 05/15/2016 [facility] CHEM PANEL Creatinine Lvl 0.70 mg/dL 0.50 - 1.40 05/15/2016 [facility] CHEM PANEL Sodium Lvl 130 meq/L 135 - 145 05/15/2016 [facility] CHEM PANEL CO2 26 meq/L 24 - 32 05/15/2016 [facility] CHEM PANEL Calcium Lvl 8.7 mg/dL 8.5 - 10.5 05/15/2016 [facility] CHEM PANEL eGFR 90 mL/min/1.73m2 05/15/2016 [...] should be multiplied by the estimated BMI. [facility] CHEM PANEL B/C Ratio 10 6 - 25 05/15/2016 [facility] CHEM PANEL Globulin 3.8 g/dL 2.7 - 4.2 05/15/2016 [facility] CHEM PANEL Bili Total 0.4 mg/dL 0.2 - 1.3 05/15/2016 [facility] CHEM PANEL AGAP 11.8 meq/L 10.0 - 20.0 05/15/2016 [facility] CHEM PANEL ALT 22 unit/L 0 - 65 05/15/2016 [facility] CHEM PANEL A/G Ratio 1.1 0.7 - 1.6 05/15/2016 [facility] HEMATOLOGY RBC 3.68 M/CMM 4.20 - 5.40 05/15/2016 [facility] HEMATOLOGY WBC 5.5 K/CMM 3.7 - 10.4 05/15/2016 [facility] MCH 31.2 pg 27.0 - 31.0 05/15/2016 [facility] Hgb 11.5 g/dL 12.0 - 16.0 05/15/2016 [facility] Hct 33.4 % 36.0 - 48.0 05/15/2016 [facility] MCV 90.5 fL 80.0 - 98.0 05/15/2016 [facility] MCHC 34.5 g/dL 32.0 - 36.0 05/15/2016 [facility] Platelet 219 K/CMM 133 - 450 05/15/2016 [facility] RDW 12.6 % 11.5 - 14.5 05/15/2016 [facility] MPV 7.9 fL 7.4 - 10.4 05/15/2016 [facility] Basophils 0.6 % 0.0 - 1.0 05/15/2016 [facility] Lymphocytes # 1.2 K/CMM 1.0 - 5.5 05/15/2016 [facility] Segs-Bands # 3.6 K/CMM 1.5 - 8.1 05/15/2016 [facility] Eosinophils 2.5 % 0.0 - 4.0 05/15/2016 [facility] Eosinophils # 0.1 K/CMM 0.0 - 0.5 05/15/2016 [facility] Monocytes # 0.5 K/CMM 0.0 - 0.8 05/15/2016 [facility] Segs 66.4 % 45.0 - 75.0 05/15/2016 [facility] Lymphocytes 21.5 % 20.0 - 40.0 05/15/2016 [facility] Monocytes 9.0 % 2.0 - 12.0 05/15/2016 [facility] Chest 1view DX Chest 1view DX EXAM: XR CHEST 1 VIEW DATE: 05/15/2016 12:39 AM CDT INDICATION: Chest pain COMPARISON: 05/04/2016 TECHNIQUE: Frontal chest radiograph FINDINGS: The lungs are clear. The cardiomediastinal silhouette is normal. There is no acute bony abnormality. IMPRESSION: No acute abnormality SL: WR4-M 05/15/2016 - - Read by: Miguel Pearson Dictated Date/time: 05/15/16 01:18 Electronically Signed by: Miguel Pearson 05/15/16 01:18 FINAL REPORT [facility] Brain wo contrast CT Brain wo contrast [...] a mass, hemorrhage, or subacute stroke. SL: RADHA 05/15/2016 - - Read by: Derek Barboza DO Dictated Date/time: 05/15/16 01:52 Electronically Signed by: Derek Barboza DO 05/15/16 01:54 FINAL REPORT [facility] CHEM PANEL BUN 8 mg/dL 7 - 22 05/08/2016 [facility] CHEM PANEL Potassium Lvl 3.7 meq/L 3.5 - 5.1 05/08/2016 [facility] CHEM PANEL Creatinine Lvl 0.67 mg/dL 0.50 - 1.40 05/08/2016 [facility] CHEM PANEL Sodium Lvl 128 meq/L 135 - 145 05/08/2016 [facility] CHEM PANEL Chloride Lvl 97 meq/L 95 - 109 05/08/2016 [facility] CHEM PANEL AGAP 9.7 meq/L 10.0 - 20.0 05/08/2016 [facility] CHEM PANEL CO2 25 meq/L 24 - 32 05/08/2016 [facility] CHEM PANEL Calcium Lvl 8.8 mg/dL 8.5 - 10.5 05/08/2016 [facility] CHEM PANEL Glucose Lvl 125 mg/dL 70 - 99 05/08/2016 [facility] CHEM PANEL eGFR 91 mL/min/1.73m2 05/08/2016 [...] should be multiplied by the estimated BMI. [facility] CHEM PANEL Ketone Quantitative 0.26 mmol/L <=0.27 mmol/L 05/08/2016 [facility] ELECTROLYTES CO2 24 meq/L 24 - 32 05/08/2016 [facility] ELECTROLYTES Calcium Lvl 9.0 mg/dL 8.5 - 10.5 05/08/2016 [facility] ELECTROLYTES eGFR 85 mL/min/1.73m2 05/08/2016 Result [...] should be multiplied by the estimated BMI. [facility] ELECTROLYTES Chloride Lvl 91 meq/L 95 - 109 05/08/2016 [facility] ELECTROLYTES Potassium Lvl 3.7 meq/L 3.5 - 5.1 05/08/2016 [facility] ELECTROLYTES BUN 9 mg/dL 7 - 22 05/08/2016 [facility] ELECTROLYTES Glucose Lvl 111 mg/dL 70 - 99 05/08/2016 [facility] ELECTROLYTES Sodium Lvl 124 meq/L 135 - 145 05/08/2016 [facility] ELECTROLYTES Creatinine Lvl 0.73 mg/dL 0.50 - 1.40 05/08/2016 [facility] ELECTROLYTES AGAP 12.7 meq/L 10.0 - 20.0 05/08/2016 [facility] HEMATOLOGY Monocytes # 0.5 K/CMM 0.0 - 0.8 05/08/2016 [facility] HEMATOLOGY Lymphocytes # 1.4 K/CMM 1.0 - 5.5 05/08/2016 [facility] HEMATOLOGY Segs-Bands # 4.0 K/CMM 1.5 - 8.1 05/08/2016 [facility] HEMATOLOGY Basophils 0.6 % 0.0 - 1.0 05/08/2016 [facility] HEMATOLOGY Eosinophils 0.7 % 0.0 - 4.0 05/08/2016 [facility] HEMATOLOGY Monocytes 7.9 % 2.0 - 12.0 05/08/2016 [facility] HEMATOLOGY Lymphocytes 23.8 % 20.0 - 40.0 05/08/2016 [facility] HEMATOLOGY Segs 67.0 % 45.0 - 75.0 05/08/2016 [facility] HEMATOLOGY MCHC 34.0 g/dL 32.0 - 36.0 05/08/2016 [facility] HEMATOLOGY MPV 7.9 fL 7.4 - 10.4 05/08/2016 [facility] HEMATOLOGY Hct 32.4 % 36.0 - 48.0 05/08/2016 [facility] HEMATOLOGY Platelet 207 K/CMM 133 - 450 05/08/2016 [facility] HEMATOLOGY RDW 12.4 % 11.5 - 14.5 05/08/2016 [facility] HEMATOLOGY RBC 3.59 M/CMM 4.20 - 5.40 05/08/2016 [facility] HEMATOLOGY Hgb 11.0 g/dL 12.0 - 16.0 05/08/2016 [facility] HEMATOLOGY MCH 30.8 pg 27.0 - 31.0 05/08/2016 [facility] HEMATOLOGY MCV 90.4 fL 80.0 - 98.0 05/08/2016 [facility] HEMATOLOGY WBC 6.0 K/CMM 3.7 - 10.4 05/08/2016 [facility] CARDIAC ENZYMES CK MB Index 1.1 0.0 - 2.5 05/04/2016 [facility] CARDIAC ENZYMES Troponin-I null 0.00 - 0.40 05/04/2016 [facility] CARDIAC ENZYMES Total CK 242 unit/L 12 - 191 05/04/2016 [facility] CARDIAC ENZYMES CK MB 2.6 ng/mL 0.5 - 3.6 05/04/2016 [facility] CHEM PANEL eGFR 74 mL/min/1.73m2 05/04/2016 [...] should be multiplied by the estimated BMI. [facility] CHEM PANEL Bili Total 0.3 mg/dL 0.2 - 1.3 05/04/2016 [facility] CHEM PANEL AGAP 12.1 meq/L 10.0 - 20.0 05/04/2016 [facility] CHEM PANEL B/C Ratio 11 6 - 25 05/04/2016 [facility] CHEM PANEL Globulin 3.9 g/dL 2.7 - 4.2 05/04/2016 [facility] CHEM PANEL A/G Ratio 1.0 0.7 - 1.6 05/04/2016 [facility] CHEM PANEL Total Protein 7.8 g/dL 6.4 - 8.4 05/04/2016 [facility] CHEM PANEL Albumin Lvl 3.9 g/dL 3.5 - 5.0 05/04/2016 [facility] CHEM PANEL ALT 19 unit/L 0 - 65 05/04/2016 [facility] CHEM PANEL Calcium Lvl 8.6 mg/dL 8.5 - 10.5 05/04/2016 [facility] CHEM PANEL Alk Phos 37 unit/L 39 - 136 05/04/2016 [facility] CHEM PANEL AST 25 unit/L 0 [...] # 3.9 K/CMM 1.5 - 8.1 05/04/2016 [facility] HEMATOLOGY Monocytes # 0.4 K/CMM 0.0 - 0.8 05/04/2016 [facility] HEMATOLOGY Basophils 0.8 % 0.0 - 1.0 05/04/2016 [facility] HEMATOLOGY Segs 57.6 % 45.0 - 75.0 05/04/2016 [facility] HEMATOLOGY Monocytes 6.6 % 2.0 - 12.0 05/04/2016 [facility] HEMATOLOGY Lymphocytes 34.5 % 20.0 - 40.0 05/04/2016 [facility] HEMATOLOGY RBC 3.84 M/CMM 4.20 - 5.40 05/04/2016 [facility] HEMATOLOGY Hct 34.3 % 36.0 - 48.0 05/04/2016 [facility] HEMATOLOGY MCH 30.3 pg 27.0 - 31.0 05/04/2016 [facility] HEMATOLOGY MCV 89.4 fL 80.0 - 98.0 05/04/2016 [facility] HEMATOLOGY WBC 6.7 K/CMM 3.7 - 10.4 05/04/2016 [facility] HEMATOLOGY Hgb 11.6 g/dL 12.0 - 16.0 05/04/2016 [facility] HEMATOLOGY RDW 12.4 % 11.5 - 14.5 05/04/2016 [facility] HEMATOLOGY MCHC 33.9 g/dL 32.0 - 36.0 05/04/2016 [facility] HEMATOLOGY Platelet 213 K/CMM 133 - 450 05/04/2016 [facility] HEMATOLOGY MPV 7.6 fL 7.4 - 10.4 05/04/2016 [facility] Chest 1view DX Chest 1view DX EXAM: XR CHEST 1 VIEW DATE: 05/04/2016 1:02 AM CDT INDICATION: Chest pain COMPARISON: 05/02/2016 TECHNIQUE: Frontal chest radiograph FINDINGS: The lungs are clear. The cardiomediastinal silhouette is normal. There is no acute bony abnormality. IMPRESSION: No acute abnormality SL: DEDE 05/04/2016 - - Read by: Miguel Pearson [facility] Date/time: 05/04/16 01:28 Electronically Signed by: Miguel Pearson 05/04/16 01:29 FINAL REPORT [facility] URINE AND STOOL UA Spec Grav 1.005 <=1.030 05/03/2016 [facility] URINE AND STOOL UA Turbidity Clear (05/02/16 7:58 PM) Clear 05/03/2016 [facility] URINE AND STOOL UA pH 8.0 5.0 - 8.0 05/03/2016 [facility] URINE AND STOOL UA Glucose Negative mg/dL Negative mg/dL 05/03/2016 [facility] URINE AND STOOL UA Protein Negative mg/dL Negative mg/dL 05/03/2016 [facility] URINE AND STOOL UA Ketones Negative mg/dL Negative mg/dL 05/03/2016 [facility] URINE AND STOOL UA Bili Negative *NA* (05/02/16 7:58 PM) Negative 05/03/2016 [facility] URINE AND STOOL UA Nitrite Negative (05/02/16 [...] URINE AND STOOL UA Color Colorless 05/03/2016 [facility] URINE AND STOOL UA RBC 2 /HPF 0 - 2 05/03/2016 [facility] URINE AND STOOL UA Urobilinogen <=1.0 mg/dL 0.1 - 1.0 05/03/2016 [facility] CARDIAC ENZYMES BNP 38 pg/mL <=100 pg/mL 05/02/2016 [facility] CARDIAC ENZYMES Total CK 187 unit/L 12 - 191 05/02/2016 [facility] CARDIAC ENZYMES CK MB 2.2 ng/mL 0.5 - 3.6 05/02/2016 [facility] CARDIAC ENZYMES Troponin-I null 0.00 - 0.40 05/02/2016 [facility] CARDIAC ENZYMES CK MB Index 1.2 0.0 - 2.5 05/02/2016 [facility] CHEM PANEL eGFR 78 mL/min/1.73m2 05/02/2016 [...] should be multiplied by the estimated BMI. [facility] CHEM PANEL Albumin Lvl 4.3 g/dL 3.5 - 5.0 05/02/2016 [facility] CHEM PANEL Potassium Lvl 3.8 meq/L 3.5 - 5.1 05/02/2016 [facility] CHEM PANEL ALT 19 unit/L 0 - 65 05/02/2016 [facility] CHEM PANEL AST 19 unit/L 0 - 37 05/02/2016 [facility] CHEM PANEL Calcium Lvl 9.1 mg/dL 8.5 - 10.5 05/02/2016 [facility] CHEM PANEL Total Protein 8.7 g/dL 6.4 - 8.4 05/02/2016 [facility] CHEM PANEL Chloride Lvl 95 meq/L 95 - 109 05/02/2016 [facility] CHEM PANEL CO2 26 meq/L 24 - 32 05/02/2016 [facility] CHEM PANEL Creatinine Lvl 0.79 mg/dL 0.50 - 1.40 05/02/2016 [facility] CHEM PANEL Sodium Lvl 129 meq/L 135 - 145 05/02/2016 [facility] CHEM PANEL Glucose Lvl 135 mg/dL 70 - 99 05/02/2016 [facility] CHEM PANEL BUN 10 mg/dL 7 - 22 05/02/2016 [facility] CHEM PANEL A/G Ratio 1.0 0.7 - 1.6 05/02/2016 [facility] CHEM PANEL B/C Ratio 13 6 - 25 05/02/2016 [facility] CHEM PANEL Globulin 4.4 g/dL 2.7 - 4.2 05/02/2016 [facility] CHEM PANEL Bili Total 0.3 mg/dL 0.2 - 1.3 05/02/2016 [facility] CHEM PANEL AGAP 11.8 meq/L 10.0 - 20.0 05/02/2016 [facility] CHEM PANEL Alk Phos 40 unit/L 39 - 136 05/02/2016 [facility] HEMATOLOGY Platelet 205 K/CMM 133 - 450 05/02/2016 [facility] HEMATOLOGY MPV 8.2 fL 7.4 - 10.4 05/02/2016 [facility] HEMATOLOGY MCH 31.3 pg 27.0 - 31.0 05/02/2016 [facility] HEMATOLOGY Hct 35.3 % 36.0 - 48.0 05/02/2016 [facility] HEMATOLOGY MCHC 34.8 g/dL 32.0 - 36.0 05/02/2016 [facility] HEMATOLOGY MCV 90.0 fL 80.0 - 98.0 05/02/2016 [facility] HEMATOLOGY RDW 12.8 % 11.5 - 14.5 05/02/2016 [facility] HEMATOLOGY RBC 3.92 M/CMM 4.20 - 5.40 05/02/2016 [facility] HEMATOLOGY WBC 5.8 K/CMM 3.7 - 10.4 05/02/2016 [facility] HEMATOLOGY Hgb 12.3 g/dL 12.0 - 16.0 05/02/2016 [facility] HEMATOLOGY Eosinophils 0.3 % 0.0 - 4.0 05/02/2016 [facility] HEMATOLOGY Basophils 0.6 % 0.0 - 1.0 05/02/2016 [facility] HEMATOLOGY Segs-Bands # 3.9 K/CMM 1.5 - 8.1 05/02/2016 [facility] HEMATOLOGY Lymphocytes 24.8 % 20.0 - 40.0 05/02/2016 [facility] HEMATOLOGY Monocytes 6.8 % 2.0 - 12.0 05/02/2016 [facility] HEMATOLOGY Segs 67.5 % 45.0 - 75.0 05/02/2016 [facility] HEMATOLOGY Lymphocytes # 1.4 K/CMM 1.0 - 5.5 05/02/2016 [facility] HEMATOLOGY Monocytes # 0.4 K/CMM 0.0 - 0.8 05/02/2016 [facility] Brain wo contrast CT Brain wo [...] No acute brain abnormality is noted. SL: MCHAWLA-MARGOT 05/02/2016 - - Read by: Irlanda Dupree MD Dictated Date/time: 05/02/16 19:59 Electronically Signed by: Irlanda Dupree MD 05/02/16 19:59 FINAL REPORT - - Read by: Joao Daniels MD Dictated Date/time: 05/02/16 19:55 Electronically Signed by: Joao Daniels MD 05/02/16 19:57 FINAL REPORT [facility] Chest 1view DX Chest 1view DX [...] Kings Khan MD 05/02/16 19:15 FINAL REPORT [facility] CARDIAC ENZYMES Troponin-I null 0.00 - 0.40 05/02/2016 [facility] CHEM PANEL eGFR 90 mL/min/1.73m2 05/02/2016 [...] should be multiplied by the estimated BMI. [facility] CHEM PANEL CO2 17 meq/L 24 - 32 05/02/2016 [facility] CHEM PANEL Calcium Lvl 8.4 mg/dL 8.5 - 10.5 05/02/2016 [facility] CHEM PANEL Glucose Lvl 111 mg/dL 70 - 99 05/02/2016 [facility] CHEM PANEL Sodium Lvl 130 meq/L 135 - 145 05/02/2016 [facility] CHEM PANEL BUN 15 mg/dL 7 - 22 05/02/2016 [facility] CHEM PANEL Potassium Lvl 3.8 meq/L 3.5 - 5.1 05/02/2016 [facility] CHEM PANEL Chloride Lvl 102 meq/L 95 - 109 05/02/2016 [facility] CHEM PANEL Creatinine Lvl 0.69 mg/dL 0.50 - 1.40 05/02/2016 [facility] CHEM PANEL AGAP 14.8 meq/L 10.0 - 20.0 05/02/2016 [facility] HEMATOLOGY Lymphocytes # 2.3 K/CMM 1.0 - 5.5 05/02/2016 [facility] HEMATOLOGY Basophils 0.7 % 0.0 - 1.0 05/02/2016 [facility] Segs-Bands # 3.5 K/CMM 1.5 - 8.1 05/02/2016 [facility] Monocytes 7.6 % 2.0 - 12.0 05/02/2016 [facility] Eosinophils 0.7 % 0.0 - 4.0 05/02/2016 [facility] Lymphocytes 36.1 % 20.0 - 40.0 05/02/2016 [facility] Monocytes # 0.5 K/CMM 0.0 - 0.8 05/02/2016 [facility] Segs 54.9 % 45.0 - 75.0 05/02/2016 [facility] MPV 8.2 fL 7.4 - 10.4 05/02/2016 [facility] Platelet 200 K/CMM 133 - 450 05/02/2016 [facility] RDW 12.6 % 11.5 - 14.5 05/02/2016 [facility] MCHC 33.7 g/dL 32.0 - 36.0 05/02/2016 [facility] MCH 30.4 pg 27.0 - 31.0 05/02/2016 [facility] WBC 6.4 K/CMM 3.7 - 10.4 05/02/2016 [facility] RBC 3.63 M/CMM 4.20 - 5.40 05/02/2016 [facility] MCV 90.2 fL 80.0 - 98.0 05/02/2016 [facility] Hct 32.8 % 36.0 - 48.0 05/02/2016 [facility] Hgb 11.0 g/dL 12.0 - 16.0 05/02/2016 [facility] Chest Pulmonary Embolism CTA Chest Pulmonary [...] by: Miguel Pearson 05/02/16 04:34 FINAL REPORT [facility] Chest 1view DX Chest 1view DX EXAM: XR CHEST 1 VIEW DATE: 05/02/2016 1:41 AM CDT INDICATION: Chest pain COMPARISON: 04/28/2016 TECHNIQUE: Frontal chest radiograph FINDINGS: The lungs are clear. The cardiomediastinal silhouette is normal. There is no acute bony abnormality. IMPRESSION: No acute abnormality SL: DEDE 05/02/2016 - - Read by: Miguel Pearson Dictated Date/time: 05/02/16 02:09 Electronically Signed by: Miguel Pearson 05/02/16 02:09 FINAL REPORT [facility] [employer] [facility] eGFR 90 mL/min/1.73m2 04/30/2016 Result Comment: The [...] should be multiplied by the estimated BMI. [facility] CHEM PANEL Calcium Lvl 8.6 mg/dL 8.5 - 10.5 04/30/2016 [facility] CHEM PANEL AGAP 14.1 meq/L 10.0 - 20.0 04/30/2016 [facility] CHEM PANEL Creatinine Lvl 0.70 mg/dL 0.50 - 1.40 04/30/2016 [facility] CHEM PANEL BUN 13 mg/dL 7 [...] Lvl 127 meq/L 135 - 145 04/29/2016 [facility] CHEM PANEL Creatinine Lvl 0.87 mg/dL 0.50 - 1.40 04/29/2016 [facility] CHEM PANEL CO2 24 meq/L 24 - 32 04/29/2016 [facility] CHEM PANEL Chloride Lvl 95 meq/L 95 - 109 04/29/2016 [facility] CHEM PANEL Potassium Lvl 4.2 meq/L 3.5 - 5.1 04/29/2016 [facility] CHEM PANEL BUN 13 mg/dL 7 - 22 04/29/2016 [facility] CHEM PANEL Glucose Lvl 179 mg/dL 70 - 99 04/29/2016 [facility] URINE CHEM U Osmolality 383 mOsm/kg 300 - 800 04/29/2016 [facility] URINE CHEM U Chloride 62 meq/L 04/29/2016 [facility] URINE CHEM U Sodium 56 meq/L 04/29/2016 [facility] CHEM PANEL eGFR 90 mL/min/1.73m2 04/29/2016 [...] should be multiplied by the estimated BMI. [facility] CHEM PANEL Glucose Lvl 111 mg/dL 70 - 99 04/29/2016 [facility] CHEM PANEL Sodium Lvl 129 meq/L 135 - 145 04/29/2016 [facility] CHEM PANEL Creatinine Lvl 0.69 mg/dL 0.50 - 1.40 04/29/2016 [facility] CHEM PANEL BUN 12 mg/dL 7 - 22 04/29/2016 [facility] CHEM PANEL Potassium Lvl 4.2 meq/L 3.5 - 5.1 04/29/2016 [facility] CHEM PANEL Chloride Lvl 97 meq/L 95 - 109 04/29/2016 [facility] CHEM PANEL AGAP 10.2 meq/L 10.0 - 20.0 04/29/2016 [facility] CHEM PANEL Calcium Lvl 8.8 mg/dL 8.5 - 10.5 04/29/2016 [facility] CHEM PANEL CO2 26 meq/L 24 - 32 04/29/2016 [facility] Cardiac SPECT multi studies NM Cardiac [...] _*_*_ Dictated by: JOSE RAI MD cc: STAFF PSYCHIATRIST / M: STAFF PSYCHIATRIST [id number] Doc#: [id number]//lt/ Signature Line Jose Rai MD Electronically Signed: 05/12/16 08:44 04/29/2016 - - Electronically Signed by: Jose Rai MD 10/23/16 10:31 FINAL REPORT [facility] CARDIAC ENZYMES CK MB Index 0.8 0.0 - 2.5 04/29/2016 [facility] CARDIAC ENZYMES CK MB 1.4 ng/mL 0.5 - 3.6 04/29/2016 [facility] CARDIAC ENZYMES Total CK 182 unit/L 12 - 191 04/29/2016 [facility] CARDIAC ENZYMES Troponin-I null 0.00 - 0.40 04/29/2016 [facility] CARDIAC ENZYMES CK MB 1.7 ng/mL 0.5 - 3.6 04/28/2016 [facility] CARDIAC ENZYMES CK MB Index 0.9 0.0 - 2.5 04/28/2016 [facility] CARDIAC ENZYMES Total CK 195 unit/L 12 - 191 04/28/2016 [facility] CARDIAC ENZYMES Troponin-I null 0.00 - 0.40 04/28/2016 [facility] CARDIAC ENZYMES BNP 116 pg/mL <=100 pg/mL 04/28/2016 [facility] CARDIAC ENZYMES Troponin-I null 0.00 - 0.40 04/28/2016 [facility] CARDIAC ENZYMES CK MB 2.7 ng/mL 0.5 - 3.6 04/28/2016 [facility] CARDIAC ENZYMES Total CK 242 unit/L 12 - 191 04/28/2016 [facility] CARDIAC ENZYMES CK MB Index 1.1 0.0 - 2.5 04/28/2016 [facility] CHEM PANEL Magnesium Lvl 2.0 mg/dL 1.8 - 2.4 04/28/2016 [facility] CHEM PANEL Lipase Lvl 170 unit/L 73 - 393 04/28/2016 [facility] CHEM PANEL B/C Ratio 18 6 - 25 04/28/2016 [facility] CHEM PANEL ALT 21 unit/L 0 - 65 04/28/2016 [facility] CHEM PANEL AST 19 unit/L 0 - 37 04/28/2016 [facility] CHEM PANEL Alk Phos 38 unit/L 39 - 136 04/28/2016 [facility] CHEM PANEL Bili Total 0.4 mg/dL 0.2 - 1.3 04/28/2016 [facility] CHEM PANEL Total Protein 8.4 g/dL 6.4 - 8.4 04/28/2016 [facility] CHEM PANEL Albumin Lvl 4.1 g/dL 3.5 - 5.0 04/28/2016 [facility] CHEM PANEL Globulin 4.3 g/dL 2.7 - 4.2 04/28/2016 [facility] CHEM PANEL A/G Ratio 1.0 0.7 - 1.6 04/28/2016 [facility] HEMATOLOGY PTT 29.7 s 22.9 - 35.8 04/28/2016 [facility] HEMATOLOGY INR 0.97 0.85 - 1.17 04/28/2016 [facility] HEMATOLOGY PT 13.1 s 12.0 - 14.7 04/28/2016 [facility] HEMATOLOGY Hgb 12.0 g/dL 12.0 - 16.0 04/28/2016 [facility] HEMATOLOGY MCV 89.4 fL 80.0 - 98.0 04/28/2016 [facility] HEMATOLOGY RBC 3.91 M/CMM 4.20 - 5.40 04/28/2016 [facility] WBC 4.3 K/CMM 3.7 - 10.4 04/28/2016 [facility] Hct 34.9 % 36.0 - 48.0 04/28/2016 [facility] MPV 9.0 fL 7.4 - 10.4 04/28/2016 [facility] [facility] MCH 30.8 pg 27.0 - 31.0 04/28/2016 [facility] RDW 12.6 % 11.5 - 14.5 04/28/2016 [facility] MCHC 34.5 g/dL 32.0 - 36.0 04/28/2016 [facility] Platelet 194 K/CMM 133 - 450 04/28/2016 [facility] Segs-Bands # 2.4 K/CMM 1.5 - 8.1 04/28/2016 [facility] Monocytes # 0.3 K/CMM 0.0 - 0.8 04/28/2016 [facility] Lymphocytes # 1.5 K/CMM 1.0 - 5.5 04/28/2016 [facility] Basophils 0.9 % 0.0 - 1.0 04/28/2016 [facility] Eosinophils 0.9 % 0.0 - 4.0 04/28/2016 [facility] Segs 56.8 % 45.0 - 75.0 04/28/2016 [facility] Monocytes 7.0 % 2.0 - 12.0 04/28/2016 [facility] Lymphocytes 34.4 % 20.0 - 40.0 04/28/2016 [facility] Chest 1view DX Chest 1view DX [...] Kings Khan MD 04/28/16 09:44 FINAL REPORT [facility] CARDIAC ENZYMES Total CK 169 unit/L 12 - 191 09/29/2015 [facility] CARDIAC ENZYMES Troponin-I null 0.00 - 0.40 09/29/2015 [facility] CARDIAC ENZYMES CK MB 1.2 ng/mL 0.5 - 3.6 09/29/2015 [facility] CARDIAC ENZYMES BNP 109 pg/mL <=100 pg/mL 09/29/2015 [facility] CARDIAC ENZYMES CK MB Index 0.7 0.0 - 2.5 09/29/2015 [facility] CHEM PANEL eGFR 92 mL/min/1.73m2 09/29/2015 [...] should be multiplied by the estimated BMI. [facility] CHEM PANEL A/G Ratio 1.2 0.7 - 1.6 09/29/2015 [facility] CHEM PANEL Globulin 3.8 g/dL 2.0 - 4.0 09/29/2015 [facility] CHEM PANEL Bili Total 0.2 mg/dL 0.2 - 1.3 09/29/2015 [facility] CHEM PANEL AGAP 10.8 meq/L 10.0 - 20.0 09/29/2015 [facility] CHEM PANEL B/C Ratio 15 6 - 25 09/29/2015 [facility] CHEM PANEL Creatinine Lvl 0.66 mg/dL 0.50 - 1.40 09/29/2015 [facility] CHEM PANEL BUN 10 mg/dL 7 - 22 09/29/2015 [facility] CHEM PANEL Glucose Lvl 99 mg/dL 70 - 99 09/29/2015 [facility] CHEM PANEL ALT 23 unit/L 0 - 65 09/29/2015 [facility] CHEM PANEL Albumin Lvl 4.5 g/dL 3.5 - 5.0 09/29/2015 [facility] CHEM PANEL Alk Phos 39 unit/L 39 - 136 09/29/2015 [facility] CHEM PANEL AST 14 unit/L 0 - 37 09/29/2015 [facility] CHEM PANEL Chloride Lvl 95 meq/L 95 - 109 09/29/2015 [facility] CHEM PANEL Potassium Lvl 3.8 meq/L 3.5 - 5.1 09/29/2015 [facility] CHEM PANEL Sodium Lvl 127 meq/L 135 - 145 09/29/2015 [facility] CHEM PANEL Total Protein 8.3 g/dL 6.4 - 8.4 09/29/2015 [facility] CHEM PANEL Calcium Lvl 9.0 mg/dL 8.5 - 10.5 09/29/2015 [facility] CHEM PANEL CO2 25 meq/L 24 - 32 09/29/2015 [facility] HEMATOLOGY D-Dimer 0.29 ug/mL FEU 09/29/2015 [facility] HEMATOLOGY MCHC 33.5 g/dL 32.0 - 36.0 09/29/2015 [facility] MCH 30.1 pg 27.0 - 31.0 09/29/2015 [facility] HEMATOLOGY MCV 89.9 fL 80.0 - 98.0 09/29/2015 [facility] HEMATOLOGY Hct 34.8 % 36.0 - 48.0 09/29/2015 [facility] HEMATOLOGY Hgb 11.7 g/dL 12.0 - 16.0 09/29/2015 [facility] HEMATOLOGY MPV 8.8 fL 7.4 - 10.4 09/29/2015 [facility] HEMATOLOGY Platelet 207 K/CMM 133 - 450 09/29/2015 [facility] HEMATOLOGY RDW 12.8 % 11.5 - 14.5 09/29/2015 [facility] HEMATOLOGY RBC 3.87 M/CMM 4.20 - 5.40 09/29/2015 [facility] HEMATOLOGY WBC 5.1 K/CMM 3.7 - 10.4 09/29/2015 [facility] HEMATOLOGY Segs 59.0 % 45.0 - 75.0 09/29/2015 [facility] HEMATOLOGY Monocytes 7.1 % 2.0 - 12.0 09/29/2015 [facility] HEMATOLOGY Lymphocytes 32.1 % 20.0 - 40.0 09/29/2015 [facility] HEMATOLOGY Segs-Bands # 3.0 K/CMM 1.5 - 8.1 09/29/2015 [facility] HEMATOLOGY Basophils 0.8 % 0.0 - 1.0 09/29/2015 [facility] HEMATOLOGY Eosinophils 1.0 % 0.0 - 4.0 09/29/2015 [facility] HEMATOLOGY Lymphocytes # 1.6 K/CMM 1.0 - 5.5 09/29/2015 [facility] HEMATOLOGY Eosinophils # 0.1 K/CMM 0.0 - 0.5 09/29/2015 [facility] HEMATOLOGY Monocytes # 0.4 K/CMM 0.0 - 0.8 09/29/2015 [facility] Chest 1view DX Chest 1view DX Patient Name: ALFREDO ABAD : 1950; Age: 65 years y/o Female MR: [id number] Study: Chest 1view DX 09/28/2015 6:28 PM [facility] Ordering Physician: Liam Rea MD Comparison: None [...] bilaterally. IMPRESSION: No acute cardiopulmonary process. SL: [id number] 09/28/2015 - - Read by: Jagdish Tesfaye MD Dictated Date/time: 09/28/15 19:41 Electronically Signed by: Jagdish Tesfaye MD 09/28/15 19:41 FINAL REPORT [facility] URINE AND STOOL UA RBC 2 /HPF 0 - 2 09/17/2015 [facility] URINE AND STOOL UA Nitrite Negative (09/16/15 6:48 PM) Negative 09/17/2015 [facility] URINE AND STOOL UA Bili Negative *NA* (09/16/15 6:48 PM) Negative 09/17/2015 [facility] URINE AND STOOL UA Blood Negative (09/16/15 6:48 PM) Negative 09/17/2015 [facility] URINE AND STOOL UA Ketones Negative mg/dL Negative mg/dL 09/17/2015 [facility] URINE AND STOOL UA WBC null 0 - 5 09/17/2015 [facility] URINE AND STOOL UA Sq Epi Occasional /LPF Few /LPF 09/17/2015 [facility] URINE AND STOOL UA Leuk Est Negative (09/16/15 6:48 PM) Negative 09/17/2015 [facility] URINE AND STOOL UA Color Ltyellow 09/17/2015 [facility] URINE AND STOOL UA Urobilinogen <=1.0 mg/dL 0.1 - 1.0 09/17/2015 [facility] URINE AND STOOL UA pH 7.0 5.0 - 8.0 09/17/2015 [facility] URINE AND STOOL UA Spec Grav 1.006 <=1.030 09/17/2015 [facility] URINE AND STOOL UA Turbidity Clear (09/16/15 6:48 PM) Clear 09/17/2015 [facility] URINE AND STOOL UA Protein Negative mg/dL Negative mg/dL 09/17/2015 [facility] URINE AND STOOL UA Glucose Negative mg/dL Negative mg/dL 09/17/2015 [facility] CHEM PANEL eGFR 85 mL/min/1.73m2 09/17/2015 [...] should be multiplied by the estimated BMI. [facility] CHEM PANEL Albumin Lvl 3.9 g/dL 3.5 - 5.0 09/17/2015 [facility] CHEM PANEL CO2 27 meq/L 24 - 32 09/17/2015 [facility] CHEM PANEL Calcium Lvl 8.9 mg/dL 8.5 - 10.5 09/17/2015 [facility] CHEM PANEL Total Protein 7.4 g/dL 6.4 - 8.4 09/17/2015 [facility] CHEM PANEL Bili Total 0.3 mg/dL 0.2 - 1.3 09/17/2015 [facility] CHEM PANEL ALT 21 unit/L 0 - 65 09/17/2015 [facility] CHEM PANEL AST 12 unit/L 0 - 37 09/17/2015 [facility] CHEM PANEL Alk Phos 35 unit/L 39 - 136 09/17/2015 [facility] CHEM PANEL Glucose Lvl 150 mg/dL 70 - 99 09/17/2015 [facility] CHEM PANEL Sodium Lvl 136 meq/L 135 - 145 09/17/2015 [facility] CHEM PANEL Potassium Lvl 3.9 meq/L 3.5 - 5.1 09/17/2015 [facility] CHEM PANEL BUN 9 mg/dL 7 - 22 09/17/2015 [facility] CHEM PANEL Chloride Lvl 102 meq/L 95 - 109 09/17/2015 [facility] CHEM PANEL Creatinine Lvl 0.73 mg/dL 0.50 - 1.40 09/17/2015 [facility] CHEM PANEL A/G Ratio 1.1 0.7 - 1.6 09/17/2015 [facility] CHEM PANEL B/C Ratio 12 6 - 25 09/17/2015 [facility] CHEM PANEL Globulin 3.5 g/dL 2.0 - 4.0 09/17/2015 [facility] CHEM PANEL AGAP 10.9 meq/L 10.0 - 20.0 09/17/2015 [facility] HEMATOLOGY Segs-Bands # 3.2 K/CMM 1.5 - 8.1 09/17/2015 [facility] HEMATOLOGY Eosinophils 1.5 % 0.0 - 4.0 09/17/2015 [facility] HEMATOLOGY Monocytes 7.8 % 2.0 - 12.0 09/17/2015 [facility] HEMATOLOGY Basophils 0.8 % 0.0 - 1.0 09/17/2015 [facility] HEMATOLOGY Monocytes # 0.4 K/CMM 0.0 - 0.8 09/17/2015 [facility] HEMATOLOGY Lymphocytes # 1.7 K/CMM 1.0 - 5.5 09/17/2015 [facility] HEMATOLOGY Eosinophils # 0.1 K/CMM 0.0 - 0.5 09/17/2015 [facility] HEMATOLOGY Segs 58.7 % 45.0 - 75.0 09/17/2015 [facility] HEMATOLOGY Lymphocytes 31.2 % 20.0 - 40.0 09/17/2015 [facility] HEMATOLOGY MCHC 33.1 g/dL 32.0 - 36.0 09/17/2015 [facility] HEMATOLOGY MCH 29.9 pg 27.0 - 31.0 09/17/2015 [facility] HEMATOLOGY RDW 13.0 % 11.5 - 14.5 09/17/2015 [facility] HEMATOLOGY Platelet 206 K/CMM 133 - 450 09/17/2015 [facility] HEMATOLOGY MPV 8.1 fL 7.4 - 10.4 09/17/2015 [facility] HEMATOLOGY MCV 90.4 fL 80.0 - 98.0 09/17/2015 [facility] HEMATOLOGY Hgb 10.7 g/dL 12.0 - 16.0 09/17/2015 [facility] HEMATOLOGY Hct 32.5 % 36.0 - 48.0 09/17/2015 [facility] WBC 5.5 K/CMM 3.7 - 10.4 09/17/2015 [facility] RBC 3.59 M/CMM 4.20 - 5.40 09/17/2015 [facility] Brain wo contrast CT Brain wo contrast CT Patient Name: ALFREDO ABAD : 1950; Age: 65 years y/o Female MR: [id number] Study: Brain wo contrast CT 09/16/2015 4:58 PM [facility] Clinical Indication: Headache with Dizziness and Giddiness; [...] 1. No acute intracranial abnormality seen. SL: [id number] 09/16/2015 - - Read by: Valerie Pyle MD Dictated Date/time: 09/16/15 17:31 Electronically Signed by: Valerie Pyle MD 09/16/15 17:34 FINAL REPORT [facility] ELECTROLYTES AGAP 9.7 meq/L 10.0 - 20.0 11/22/2014 [facility] ELECTROLYTES eGFR 91 mL/min/1.73m2 11/22/2014 1Result [...] should be multiplied by the estimated BMI. [facility] ELECTROLYTES Creatinine Lvl 0.7 mg/dL 0.5 - 1.4 11/22/2014 [facility] ELECTROLYTES BUN 13 mg/dL 7 - 22 11/22/2014 [facility] ELECTROLYTES Calcium Lvl 9.3 mg/dL 8.5 - 10.5 11/22/2014 [facility] ELECTROLYTES CO2 29 meq/L 24 - 32 11/22/2014 [facility] ELECTROLYTES Potassium Lvl 4.7 meq/L 3.5 - 5.1 11/22/2014 [facility] ELECTROLYTES Sodium Lvl 138 meq/L 135 - 145 11/22/2014 [facility] ELECTROLYTES Chloride Lvl 104 meq/L 95 - 109 11/22/2014 [facility] ELECTROLYTES Glucose Lvl 103 mg/dL 70 - 99 11/22/2014 2Interpretive Data: Adult reference range values reflect the clinical guidelines of the [place] [employer]. [facility] HEMATOLOGY MPV 8.6 fL 7.4 - 10.4 11/22/2014 [facility] RDW 12.8 % 11.5 - 14.5 11/22/2014 [facility] Platelet 221 K/CMM 133 - 450 11/22/2014 [facility] MCHC 35.5 g/dL 32.0 - 36.0 11/22/2014 [facility] MCH 32.0 pg 27.0 - 31.0 11/22/2014 [facility] MCV 90.2 fL 80.0 - 98.0 11/22/2014 [facility] RBC 3.72 M/CMM 4.20 - 5.40 11/22/2014 [facility] WBC 5.7 K/CMM 3.7 - 10.4 11/22/2014 [facility] Hgb 11.9 g/dL 12.0 - 16.0 11/22/2014 [facility] HEMATOLOGY Hct 33.6 % 36.0 - 48.0 11/22/2014 [facility] HEMATOLOGY Segs 50.6 % 45.0 - 75.0 11/22/2014 [facility] HEMATOLOGY Lymphocytes # 2.2 K/CMM 1.0 - 5.5 11/22/2014 [facility] HEMATOLOGY Segs-Bands # 2.9 K/CMM 1.5 - 8.1 11/22/2014 [facility] HEMATOLOGY Lymphocytes 37.8 % 20.0 - 40.0 11/22/2014 [facility] HEMATOLOGY Monocytes # 0.5 K/CMM 0.0 - 0.8 11/22/2014 [facility] HEMATOLOGY Eosinophils # 0.2 K/CMM 0.0 - 0.5 11/22/2014 [facility] HEMATOLOGY Basophils 0.5 % 0.0 - 1.0 11/22/2014 [facility] HEMATOLOGY Basophils # 0.0 K/CMM 0.0 - 0.2 11/22/2014 [facility] HEMATOLOGY Monocytes 8.4 % 2.0 - 12.0 11/22/2014 [facility] HEMATOLOGY Eosinophils 2.7 % 0.0 - 4.0 11/22/2014 [facility] Vital Signs Vital Sign Value Date [...] Group Temperature Oral (F) 97.9 F 05/15/2016 [facility] Heart Rate 64 05/15/2016 [facility] Rate 16 05/15/2016 [facility] Systolic (mm Hg) 132 05/15/2016 [facility] Diastolic (mm Hg) 62 05/15/2016 [facility] Rate 18 05/15/2016 [facility] Heart Rate 89 05/15/2016 [facility] Systolic (mm Hg) 120 05/15/2016 [facility] Diastolic (mm Hg) 74 05/15/2016 [facility] Respitory Rate 18 05/15/2016 [facility] Heart Rate 90 05/15/2016 [facility] Systolic (mm Hg) 158 05/15/2016 [facility] Diastolic (mm Hg) 66 05/15/2016 [facility] Temperature Oral (F) 97.5 F 05/15/2016 [facility] Weight 72.727 05/15/2016 [facility] Height 154.94 cm 05/15/2016 [facility] BMI Calculated 30.29 05/15/2016 [facility] Temperature Oral (F) 97.6 F 05/15/2016 [...] 18 04/30/2016 [facility] Heart Rate 69 04/30/2016 [facility] Temperature Oral (F) 98.2 F 04/30/2016 [facility] Respitory Rate 18 04/30/2016 [facility] Temperature Oral (F) 98.1 F 04/30/2016 [facility] Weight 75 04/29/2016 [facility] Weight 75 04/28/2016 [facility] Height 154.94 cm 04/28/2016 [facility] Weight 75 04/28/2016 [facility] BMI Calculated 31.24 04/28/2016 [facility] Heart Rate 62 09/29/2015 [facility] Temperature Oral (F) 97.9 F 09/29/2015 [facility] Respitory Rate 18 09/29/2015 [facility] Systolic (mm Hg) 143 09/29/2015 [facility] Diastolic (mm Hg) 76 09/29/2015 [facility] Weight 71.818 09/28/2015 [facility] BMI Calculated 29.92 09/28/2015 [facility] Height 154.94 cm 09/28/2015 [facility] Systolic (mm Hg) 132 09/28/2015 [facility] Diastolic (mm Hg) 73 09/28/2015 [facility] Temperature Oral (F) 97.9 F 09/28/2015 [facility] Heart Rate 68 09/28/2015 [facility] Respitory Rate 17 09/28/2015 [facility] Temperature Oral (F) 98.3 F 09/17/2015 [facility] Systolic (mm Hg) 116 09/17/2015 [facility] Diastolic (mm Hg) 58 09/17/2015 [facility] Respitory Rate 17 09/17/2015 [facility] Heart Rate 61 09/17/2015 [facility] BMI Calculated 29.35 09/16/2015 [facility] Weight 70.455 09/16/2015 [facility] Heart Rate 71 09/16/2015 [facility] Systolic (mm Hg) 155 09/16/2015 [facility] Diastolic (mm Hg) 80 09/16/2015 [facility] Temperature Oral (F) 98.8 F 09/16/2015 [facility] Respitory Rate 18 09/16/2015 [facility] Height 154.94 cm 09/16/2015 [facility] Height 165.1 cm 11/22/2014 [facility] BMI Calculated 26.18 11/22/2014 [facility] Weight 71.364 11/22/2014 [facility] Encounters Location Location Details Encounter Type Encounter Number Reason For Visit Attending Provider ADM Date DC Date Status Source [facility] Outpatient [id number] Fabián Og 11/22/2014 11/23/2014 [facility] [id number] Kika Jainism 09/16/2015 09/17/2015 [facility] [id number] Liam Potepalov 09/28/2015 09/29/2015 [facility] Inpatient [id number] Jp Brunera 04/28/2016 04/30/2016 [facility] Emergency [id number] Daniel Castroff 05/02/2016 05/02/2016 [facility] Emergency [id number] Keren Collinsole 05/02/2016 05/03/2016 [facility] Emergency [id number] Liam Potepalov 05/04/2016 05/04/2016 [facility] Emergency [id number] Adelaide Gouldqi 05/08/2016 05/08/2016 [facility] Emergency [id number] Js CarrenoAhumada 05/14/2016 05/15/2016 [facility] [place] [facility] [id number] Glenn Cruz 09/02/2016 09/03/2016 [facility] [place] [facility] [place] [facility] [id number] Glenn Cruz 05/11/2017 05/12/2017 [facility] [place] [facility] [place] [facility] [id number] Glenn Cruz 11/10/2017 11/11/2017 [facility] [place] Outpatient [id number] JENNIE PATTERSON 01/25/[address] [facility] Outpatient [id number] Jennie Patterson 01/25/2018 01/26/2018 [facility] [place] [facility] [id number] Jennie Patterson 01/25/2018 01/26/2018 [facility] [place] [facility] Phone Message [id number] 02/04/2018 02/06/2018 [facility] Outpatient [facility] [id number] Jennie Patterson 02/06/2018 02/07/2018 [facility] [id number] Francoise Juliocedo 02/07/2018 02/07/2018 [facility] Outpatient [id number] [facility] 02/22/2018 [facility] [id number] [facility] 03/15/2018 [facility] [id number] [facility] 03/18/2018 [facility] [id number] JENNIE [facility] 03/18/2018 [facility] [id number] [facility] 03/25/2018 [facility] [id number] [facility] 03/25/2018 [facility] [id number] JENNIE BAN[facility] 03/29/2018 [facility] Out[facility] [id number] [facility] 04/04/2018 [facility] Out[facility] [id number] JENNIE BANH 04/07/2018 [facility] Outpatient [id number] JENNIE BANH 04/12/2018 [facility] Outpatient [id number] JENNIE [facility] 04/13/2018 [facility] Outpatient [id number] JENNIE [facility] 04/15/2018 [facility] Outpatient [id number] CLARA ROGERS 04/26/2018 [facility] [id number] ANGY WHITMORE 05/02/2018 [facility] Out[facility] [id number] JENNIE [facility] 05/03/2018 [facility] [id number] [facility] 05/03/2018 [facility] Procedures Procedure Code Date Perfomer Comments Source Cervical cytology screening [id number] 07/19/2017 [facility] Cervical cytology screening [id number] 07/19/2017 [facility] Cervical cytology screening [id number] 07/19/2017 [place] Arthroscopy of knee with meniscus repair [id number] 07/19/2013 [facility] Arthroscopy of knee with meniscus repair [id number] 07/19/2013 [facility] Arthroscopy of knee with meniscus repair [id number] 07/19/2013 [place] Colonoscopy [id number] 12/02/2012 [facility] [place] Colonoscopy [id number] 12/02/2012 [facility] Colonoscopy [id number] 12/02/2012 [place] Arthroscopy of knee with meniscus repair [id number] 07/19/2002 [facility] Arthroscopy of knee with meniscus repair [id number] 07/19/2002 [facility] Arthroscopy of knee with meniscus repair [id number] 07/19/2002 [place] Breast operation<sup>1</sup> [id number] left [facility] Meniscal repair [id number] [facility] Breast operation<sup>1</sup> [id number] 1left [facility] Meniscal repair [id number] [facility] Breast operation<sup>1</sup> [id number] left [facility] Meniscal repair [id number] [facility] Breast operation<sup>1</sup> [id number] left [facility] Breast operation<sup>1</sup> [id number] left [place]
[2018-06-04 14:44] LABS: BASOPHILS % 0.4 % (0.0-1.0); EOSINOPHILS % 0.4 % (0.0-6.0); HEMATOCRIT 37.6 % (34.2-44.1); HEMOGLOBIN 13.1 g/dL (12.0-16.0); LYMPHOCYTES # (AUTO) 1.2 (1.0-3.2); MEAN CORPUSCULAR HEMOGLOBIN 31.4 pg (28-32); MEAN CORPUSCULAR HGB CONC 34.8 g/dL (31-35); MEAN CORPUSCULAR VOLUME 90.2 fL (81-99); MONOCYTES # (AUTO) 0.5 (0.2-0.8); MONOCYTES % 8.7 % (4.4-11.3); NEUTROPHILS # (AUTO) 3.8 (2.1-6.9); NEUTROPHILS % 68.3 % (38.7-80.0); PLATELET COUNT 285 x10e3/uL (140-360); RED BLOOD COUNT 4.17 x10e6/uL (3.6-5.1); RED CELL DISTRIBUTION WIDTH 12.9 % (11.7-14.4)
[2018-06-04 14:59] LABS: ALANINE AMINOTRANSFERASE 21 IU/L (0-55); ALBUMIN 4.4 g/dL (3.5-5.0); ALBUMIN/GLOBULIN RATIO 1.3 (0.8-2.0); ALKALINE PHOSPHATASE 46 IU/L (40-150); ANION GAP 17.8 mmol/L (8-16); BLOOD UREA NITROGEN 7 mg/dL (7-26); BUN/CREATININE RATIO 10 (6-25); CALCIUM 9.2 mg/dL (8.4-10.2); CARBON DIOXIDE 21 mmol/L (22-29); CHLORIDE 95 mmol/L (98-107); CREATINE KINASE 294 IU/L (29-168); EST GLOMERULAR FILTRATION RATE > 60 ML/MIN (60-); GLUCOSE 96 mg/dL (74-118); MAGNESIUM 2.5 MG/DL (1.3-2.1); POTASSIUM 3.8 mmol/L (3.5-5.1); SODIUM 130 mmol/L (136-145)
[2018-06-04 15:02] LABS: BILIRUBIN,URINE NEGATIVE (NEGATIVE); CLARITY,URINE CLEAR (CLEAR); COLOR,URINE YELLOW (YELLOW); KETONES,URINE NEGATIVE (NEGATIVE); LEUKOCYTE ESTERASE ,URINE NEGATIVE (NEGATIVE); NITRITE,URINE NEGATIVE (NEGATIVE); PROTEIN,URINE DIPSTICK NEGATIVE (NEGATIVE); URINE UROBILINOGEN 0.2 mg/dL (0.2 - 1)
[2018-06-04 15:12] LABS: BACTERIA,URINE MODERATE /HPF; EPITHELIAL CELLS,URINE RARE /LPF; WBC,URINE (MAN) 0-5 /HPF (0-5)
[2018-06-04 15:19] LABS: THYROID STIMULATING HORMONE 1.624 uIU/mL (0.350-4.940)
== END 2018-06-04 16:22 | disposition home or self-care (01) ==
LOC: ER 13:12
DX: E87.1 Hypo-osmolality and hyponatremia (principal); K52.9 Noninfective gastroenteritis and colitis, unspecified; K21.0 Gastro-esophageal reflux disease with esophagitis; I10 Essential (primary) hypertension; E11.9 Type 2 diabetes mellitus without complications; G89.29 Other chronic pain
CPT/HCPCS: 36415; 80053; 81001; 82550; 82553; 83735; 84443; 84484; 85025; 87086; 93005; 99283

== ENCOUNTER 2023-02-07 07:53 | Emergency (ER) | payer MEDICARE ==
[~2023-02-07] VITALS: Ht 154.9 cm; Wt 74.8 kg
[2023-02-07 08:00] VITALS: O2SAT 100
[2023-02-07] MEDS ORDERED: ONDANSETRON HCL INJ 2MG/ML 2ML 2 MG/ML VIAL IV STA (08:08)
[2023-02-07] MEDS ORDERED: SODIUM CHLORIDE 0.9% 1000ML 1,000 ML IV ONE (08:15)
[2023-02-07 08:34] LABS: BASOPHILS % 0.4 % (0.0-1.0); EOSINOPHILS % 0.4 % (0.0-6.0); HEMATOCRIT 39.9 % (34.2-44.1); HEMOGLOBIN 13.8 g/dL (12.0-16.0); LYMPHOCYTES # (AUTO) 1.8 (1.0-3.2); LYMPHOCYTES % 21.9 % (18.0-39.1); MEAN CORPUSCULAR HEMOGLOBIN 30.6 pg (28-32); MEAN CORPUSCULAR HGB CONC 34.6 g/dL (31-35); MEAN CORPUSCULAR VOLUME 88.5 fL (81-99); MONOCYTES # (AUTO) 0.6 (0.2-0.8); MONOCYTES % 7.3 % (4.4-11.3); NEUTROPHILS # (AUTO) 5.7 (2.1-6.9); NEUTROPHILS % 69.6 % (38.7-80.0); PLATELET COUNT 239 x10e3/uL (140-360); RED BLOOD COUNT 4.51 x10e6/uL (3.6-5.1); RED CELL DISTRIBUTION WIDTH 12.5 % (11.7-14.4)
[2023-02-07 08:59] LABS: ALBUMIN 4.4 g/dL (3.5-5.0); ALBUMIN/GLOBULIN RATIO 1.1 (0.8-2.0); ANION GAP 18.5 mmol/L (8-16); CALCIUM 9.6 mg/dL (8.4-10.2); CREATININE, SERUM 0.79 mg/dL (0.57-1.11); POTASSIUM 4.5 mmol/L (3.5-5.1)
[2023-02-07 10:09] LABS: CLARITY,URINE SL CLOUDY (CLEAR); COLOR,URINE YELLOW (YELLOW); LEUKOCYTE ESTERASE ,URINE NEGATIVE (NEGATIVE); NITRITE,URINE NEGATIVE (NEGATIVE)
[2023-02-07 10:10] LABS: KETONES,URINE 2+ (NEGATIVE); PROTEIN,URINE DIPSTICK NEGATIVE (NEGATIVE); URINE UROBILINOGEN 0.2 mg/dL (0.2 - 1)
[2023-02-07 10:18] LABS: BACTERIA,URINE MODERATE /HPF; EPITHELIAL CELLS,URINE MODERATE /LPF; MUCUS,URINE RARE (RARE); RBC,URINE 0-5 /HPF (0-5); WBC,URINE (MAN) 0-5 /HPF (0-5)
== END 2023-02-07 10:48 | disposition home or self-care (01) ==
LOC: ER 08:05
DX: R63.0 Anorexia (principal); I10 Essential (primary) hypertension; E11.65 Type 2 diabetes mellitus with hyperglycemia; M06.9 Rheumatoid arthritis, unspecified; M81.0 Age-related osteoporosis without current pathological fracture; M54.9 Dorsalgia, unspecified; G89.29 Other chronic pain
CPT/HCPCS: 36415; 80053; 81001; 83690; 85025; 99283; J2405; J7030